=== PATIENT | female | born 1960 | race Caucasian/White ===

== ENCOUNTER → 2018-01-28 02:48 | Outpatient (CLI) | payer OTHER, SELFPAY ==
[2018-01-28 07:46] LABS: INR 3.3 (1.0-3.5); Prothrombin Time 31.3 sec (9.3-10.8)
== END ==
PROVIDERS: PCP Family Medicine; Visit Provider Internal Medicine Cardiovascular Disease
DX: I48.2 Chronic atrial fibrillation (principal); Z95.2 Presence of prosthetic heart valve; Z79.01 Long term (current) use of anticoagulants
CPT/HCPCS: 36415; 85610

== ENCOUNTER 2018-03-04 01:42 | Outpatient (CLI) | payer OTHER, SELFPAY ==
[2018-03-04 07:52] LABS: Prothrombin Time 47.2 sec (9.3-10.8)
[2018-03-04 08:44] LABS: INR 5.1 (1.0-3.5)
== END 2018-03-04 02:02 ==
PROVIDERS: PCP Family Medicine; Visit Provider Internal Medicine Cardiovascular Disease
DX: I48.2 Chronic atrial fibrillation (principal); Z95.2 Presence of prosthetic heart valve
CPT/HCPCS: 36415; 85610

== ENCOUNTER 2018-03-18 02:39 | Outpatient (CLI) | payer OTHER, SELFPAY ==
[2018-03-18 07:44] LABS: Prothrombin Time 24.1 sec (9.3-10.8)
[2018-03-18 07:53] LABS: INR 2.5 (1.0-3.5)
== END 2018-03-18 02:59 ==
PROVIDERS: PCP Family Medicine; Visit Provider Internal Medicine Cardiovascular Disease
DX: I48.2 Chronic atrial fibrillation (principal); Z79.01 Long term (current) use of anticoagulants; Z95.2 Presence of prosthetic heart valve
CPT/HCPCS: 36415; 85610

== ENCOUNTER 2018-04-01 01:16 | Outpatient (CLI) | payer OTHER, SELFPAY ==
[2018-04-01 07:50] LABS: INR 3.6 (1.0-3.5); Prothrombin Time 33.9 sec (9.3-10.8)
== END 2018-04-01 01:36 ==
PROVIDERS: PCP Family Medicine; Visit Provider Internal Medicine Cardiovascular Disease
DX: I48.2 Chronic atrial fibrillation (principal); Z95.2 Presence of prosthetic heart valve; Z79.01 Long term (current) use of anticoagulants
CPT/HCPCS: 36415; 85610

== ENCOUNTER 2018-04-22 01:48 | Outpatient (CLI) | payer OTHER, SELFPAY ==
[2018-04-22 08:15] LABS: INR 2.7 (1.0-3.5); Prothrombin Time 25.2 sec (9.3-10.8)
== END 2018-04-22 02:08 ==
PROVIDERS: PCP Family Medicine; Visit Provider Internal Medicine Cardiovascular Disease
DX: I48.2 Chronic atrial fibrillation (principal); Z79.01 Long term (current) use of anticoagulants
CPT/HCPCS: 36415; 85610

== ENCOUNTER 2018-05-21 02:21 | Outpatient (CLI) | payer OTHER, SELFPAY ==
[2018-05-21 08:10] LABS: Prothrombin Time 39.5 sec (9.3-10.8)
[2018-05-21 08:52] LABS: INR 4.3 (1.0-3.5)
== END 2018-05-21 02:41 ==
PROVIDERS: PCP Family Medicine; Visit Provider Internal Medicine Cardiovascular Disease
DX: I48.2 Chronic atrial fibrillation (principal)
CPT/HCPCS: 36415; 85610

== ENCOUNTER 2018-06-26 02:22 | Outpatient (CLI) | payer OTHER, SELFPAY ==
[2018-06-26 07:59] LABS: INR 2.7 (0.9-1.1); Prothrombin Time 26.9 sec (9.3-11.0)
== END 2018-06-26 02:42 ==
PROVIDERS: PCP Family Medicine; Visit Provider Internal Medicine Cardiovascular Disease
DX: I48.2 Chronic atrial fibrillation (principal)
CPT/HCPCS: 36415; 85610

== ENCOUNTER 2018-07-30 02:30 | Outpatient (CLI) | payer OTHER, SELFPAY ==
[2018-07-30 08:31] LABS: INR 2.3 (0.9-1.1); Prothrombin Time 23.5 sec (9.3-11.0)
== END 2018-07-30 02:50 ==
PROVIDERS: PCP Family Medicine; Visit Provider Internal Medicine Cardiovascular Disease
DX: I48.2 Chronic atrial fibrillation (principal); Z79.01 Long term (current) use of anticoagulants
CPT/HCPCS: 36415; 85610

== ENCOUNTER 2018-08-12 01:20 | Outpatient (CLI) | payer OTHER, SELFPAY ==
[2018-08-12 07:52] LABS: INR 2.4 (0.9-1.1)
== END 2018-08-12 01:40 ==
PROVIDERS: PCP Family Medicine; Visit Provider Internal Medicine Cardiovascular Disease
DX: I48.2 Chronic atrial fibrillation (principal)
CPT/HCPCS: 36415; 85610

== ENCOUNTER 2018-08-27 02:11 | Outpatient (CLI) | payer OTHER, SELFPAY ==
[2018-08-27 07:58] LABS: INR 3.6 (0.9-1.1); Prothrombin Time 36.9 sec (9.3-11.0)
== END 2018-08-27 02:31 ==
PROVIDERS: PCP Family Medicine; Visit Provider Internal Medicine Cardiovascular Disease
DX: I48.2 Chronic atrial fibrillation (principal); Z79.01 Long term (current) use of anticoagulants
CPT/HCPCS: 36415; 85610

== ENCOUNTER 2018-09-09 02:02 | Outpatient (CLI) | payer OTHER, SELFPAY ==
[2018-09-09 08:33] LABS: INR 3.3 (0.9-1.1); Prothrombin Time 33.3 sec (9.3-11.0)
== END 2018-09-09 02:22 ==
PROVIDERS: PCP Family Medicine; Visit Provider Internal Medicine Cardiovascular Disease
DX: I48.2 Chronic atrial fibrillation (principal); Z79.01 Long term (current) use of anticoagulants
CPT/HCPCS: 36415; 85610

== ENCOUNTER 2018-10-07 00:47 | Outpatient (CLI) | payer OTHER, SELFPAY ==
[2018-10-07 07:34] LABS: HCT 37.8 % (36.0-46.0); HGB 12.5 g/dL (12.0-15.5); Mean Corp. HGB Concentration 33.1 g/dL (32.0-36.0); Mean Corpuscular Hemoglobin 29.8 pg (27.0-33.0); Mean Platelet Volume 8.9 fL (8.0-11.0); Platelet Count 253 x1000/uL (130-400); RBC Distribution Width 13.2 % (11.7-14.6); White Blood Cell Count 5.88 k/cumm (4.4-10.8)
[2018-10-07 07:54] LABS: Prothrombin Time 51.3 sec (9.3-11.0)
[2018-10-07 09:23] LABS: ALT 28 U/L (12-78); AST 27 U/L (15-37); Albumin 3.6 g/dL (3.4-5.0); Alkaline Phosphatase 67 U/L (46-116); Anion Gap 7.6 mmol/L (3-11); BUN 13 mg/dL (7-18); Bilirubin, Total 0.6 mg/dL (0.2-1.0); CO2 26.4 mmol/L (21.0-32.0); CREATININE 0.98 mg/dL (0.55-1.02); Calcium 9.5 mg/dL (8.5-10.1); Chloride 104 mmol/L (98-107); Cholesterol 238 mg/dL (50-200); Estimated GFR 58.29 (mL/min/1.73m2); Glucose 104 mg/dL (70-100); HDL Cholesterol 81 mg/dL (40-60); LDL CHOLESTEROL 138 mg/dL (<100); Magnesium 1.9 mg/dL (1.8-2.4); Potassium 4.2 mmol/L (3.5-5.1); Sodium 138 mmol/L (136-145); TSH (W/Ref FT4) 5.73 uIU/mL (0.358-3.74); Triglyceride 63 mg/dL (30-150)
[2018-10-07 09:41] LABS: FREE T4 1.34 ng/dL (0.76-1.46)
== END 2018-10-07 01:07 ==
PROVIDERS: PCP Family Medicine; Visit Provider Internal Medicine Cardiovascular Disease
DX: Z00.00 Encounter for general adult medical examination without abnormal findings (principal); E03.9 Hypothyroidism, unspecified; I48.91 Unspecified atrial fibrillation
CPT/HCPCS: 36415; 80053; 80061; 83721; 85027; 83735; 84439; 84443; 85610

== ENCOUNTER 2018-10-13 02:33 | Outpatient (CLI) | payer OTHER, SELFPAY ==
[2018-10-13 08:06] LABS: INR 3.3 (0.9-1.1); Prothrombin Time 33.1 sec (9.3-11.0)
== END 2018-10-13 02:53 ==
PROVIDERS: PCP Family Medicine; Visit Provider Internal Medicine Cardiovascular Disease
DX: I48.2 Chronic atrial fibrillation (principal); Z79.01 Long term (current) use of anticoagulants
CPT/HCPCS: 36415; 85610

== ENCOUNTER 2018-11-04 01:52 | Outpatient (CLI) | payer OTHER, SELFPAY ==
[2018-11-04 08:00] LABS: Prothrombin Time 30.8 sec (9.3-11.0)
== END 2018-11-04 02:12 ==
PROVIDERS: PCP Family Medicine; Visit Provider Internal Medicine Cardiovascular Disease
DX: I48.2 Chronic atrial fibrillation (principal); Z79.01 Long term (current) use of anticoagulants
CPT/HCPCS: 36415; 85610

== ENCOUNTER 2018-12-02 07:19 | Outpatient (CLI) | payer OTHER, SELFPAY ==
[2018-12-02 07:58] LABS: INR 2.1 (0.9-1.1); Prothrombin Time 20.7 sec (9.3-11.0)
== END 2018-12-02 07:39 ==
PROVIDERS: PCP Family Medicine; Visit Provider Internal Medicine Cardiovascular Disease
DX: I48.2 Chronic atrial fibrillation (principal)
CPT/HCPCS: 36415; 85610

== ENCOUNTER 2018-12-16 01:17 | Outpatient (CLI) | payer OTHER, SELFPAY ==
[2018-12-16 07:50] LABS: INR 2.4 (0.9-1.1); Prothrombin Time 23.9 sec (9.3-11.0)
== END 2018-12-16 01:37 ==
PROVIDERS: PCP Family Medicine; Visit Provider Internal Medicine Cardiovascular Disease
DX: I48.2 Chronic atrial fibrillation (principal); Z79.01 Long term (current) use of anticoagulants
CPT/HCPCS: 36415; 85610

== ENCOUNTER 2018-12-30 01:46 | Outpatient (CLI) | payer OTHER, SELFPAY ==
[2018-12-30 07:47] LABS: INR 2.9 (0.9-1.1); Prothrombin Time 29.5 sec (9.3-11.0)
== END 2018-12-30 02:06 ==
PROVIDERS: PCP Family Medicine; Visit Provider Internal Medicine Cardiovascular Disease
DX: I48.2 Chronic atrial fibrillation (principal); Z79.01 Long term (current) use of anticoagulants
CPT/HCPCS: 36415; 85610

== ENCOUNTER 2019-02-25 03:29 | Outpatient (CLI) | payer OTHER, SELFPAY ==
[2019-02-25 08:01] LABS: Prothrombin Time 45.6 sec (9.3-11.0)
[2019-03-02 09:12] LABS: INR 4.5 (0.9-1.1)
== END 2019-02-25 03:49 ==
PROVIDERS: PCP Family Medicine; Visit Provider Internal Medicine Cardiovascular Disease
DX: I48.2 Chronic atrial fibrillation (principal)
CPT/HCPCS: 36415; 85610

== ENCOUNTER 2019-03-10 02:31 | Outpatient (CLI) | payer OTHER, SELFPAY ==
[2019-03-10 07:48] LABS: INR 3.5 (0.9-1.1); Prothrombin Time 35.7 sec (9.3-11.0)
== END 2019-03-10 02:51 ==
PROVIDERS: PCP Family Medicine; Visit Provider Internal Medicine Cardiovascular Disease
DX: I48.2 Chronic atrial fibrillation (principal)
CPT/HCPCS: 36415; 85610

== ENCOUNTER 2019-03-19 09:00 | Emergency (ER) | payer OTHER, SELFPAY ==
[2019-03-19] VITALS (86 sets, daily range): BP systolic 86–138; BP diastolic 54–80; PULSE 73–88; RESP 13–47; TEMP 36.8; O2SAT 94–99
[2019-03-19] MEDS: Normal Saline Flush 10 ML SYR IVP (08:55)
--- NOTE | 2019-03-19 09:11 | ED.GENADUL_ITS ---
Discharge Plan Disposition Patient Disposition: [facility] Condition: Stable Discharge Details Chief Complaint: GenMedical Clinical Impression: Defibrillator discharge Primary Care Provider: Cristal Armenta ED Provider: Amol Trivedi Home Meds and New Rx's Prescriptions: No Action Restasis MultiDose 0.05 % drops 1 drp OP Q12H RF: 0 cholecalciferol (vitamin D3) 2,000 unit capsule 2,000 unit PO DAILY RF: 0 EZ Tears Vitamin ophthalmic (eye) DAILY RF: 0 Qvar RediHaler 40 mcg/actuation HFA aerosol breath activated 2 puff IH BID Qty: 31.8 RF: 5 cetirizine [Zyrtec] 10 mg tablet 10 mg PO DAILY Qty: 90 RF: 4 flunisolide 25 mcg (0.025 %) spray,non-aerosol 2 spray NS DAILY Qty: 75 RF: 4 levothyroxine 137 mcg tablet 137 mcg PO DAILY Qty: 90 RF: 4 losartan 25 mg tablet 25 mg PO DAILY Qty: 90 RF: 4 potassium chloride 20 mEq tablet,ER particles/crystals 20 meq PO BID Qty: 270 RF: 4 magnesium chloride [Mag 64] 64 MG tablet,delayed release (DR/EC) 2 tab PO BID Qty: 180 RF: 4 diltiazem HCl 300 mg capsule,extended release 24hr 300 mg PO QAM Qty: 90 RF: 4 diltiazem HCl 120 mg capsule,extended release 24hr 120 mg PO pm Qty: 90 RF: 12 torsemide 20 mg tablet 20 mg PO DAILY Qty: 90 RF: 5 warfarin [Coumadin] 5 mg tablet 10 mg PO QHS Qty: 180 RF: 4 Calcium 600 + D(3) 1 EACH tablet 1 tab PO DAILY RF: 0 Medical Decision Making 58-year-old female presents from her work. During. Of high stress this morning she felt her pacemaker/defibrillator discharge 6 times. She states that this has occurred in the past with high levels of stress. She denies to me chest pain or palpitations, states she awoke feeling normal but has been suffering from stress at work. She arrives with a measurable pulse in A. fib in the 80s, blood pressure 138/80, normal respirations and oxygenation. Patient given a fluid bolus, placed in a threat monitoring analyst, referred for chest x-ray and laboratory testing. The [employer] device is interrogated. This reveals 8 shocks for VT/V. fib. Laboratories note a troponin of 0.3. Patient given ASA. She is chest pain free. Case discussed with on-call cardiology at [facility]. Patient accepted to the service of Dr. Brooks. ECG Data Attestation: I personally reviewed and interpreted this ECG (s) as follows: Interpretation: EKG reveals underlying A. fib with ventricular paced rhythm, the rate is 88, the QRS is wide. HPI General Mode of arrival: EMS . Date/Time Provider Initiated Documentation: 03/19/19 09:31 . Limitations to Documentation: no limitations . Information obtained by: family and EMS . History of Present Illness 58 year old F presents to the emergency department with the chief complaint of High stress level at work, felt defibrillator shock x6 this morning, described as moderate and similar to prior episodes, and is localized to the chest. Patient reports no radiation. Patient started experiencing this minute(s) and it has been intermittent and now resolved. No relieving factors improve symptom(s), No exacerbating factors reported . Patient notes denies chest pain, headaches, shortness of breath and syncope. Patient did receive the following treatments prior to arrival, none Related Data Home Medications Medication Instructions Recorded Confirmed magnesium chloride [Slow-Mag] 2 tab PO BID #180 tab-cap 11/07/12 03/19/19 calcium carbonate-vitamin D3 1 tab PO DAILY 05/31/13 03/19/19 [Calcium 600 + Vit D Tablet] EZ Tears Vitamin OPHTHALMIC (EYE) DAILY 09/22/18 09/22/18 beclomethasone dipropionate 40 2 puff IH BID #31.8 gm 09/22/18 03/19/19 mcg/actuation HFA breath activated aerosol cetirizine 10 mg tablet 10 mg PO DAILY #90 tab-cap 09/22/18 03/19/19 cholecalciferol (vitamin D3) 2,000 2,000 unit PO DAILY 09/22/18 03/19/19 unit capsule cyclosporine 0.05 % eye drops 1 drp OP Q12H 09/22/18 09/22/18 flunisolide 25 mcg (0.025 %) nasal 2 spray NS DAILY #75 ml 09/22/18 03/19/19 spray levothyroxine 137 mcg tablet 137 mcg PO DAILY #90 tab-cap 09/22/18 03/19/19 losartan 25 mg tablet 25 mg PO DAILY #90 tab 09/22/18 03/19/19 potassium chloride 20 mEq 20 meq PO BID #270 tab-cap 09/22/18 03/19/19 tablet,extended release(part/cryst) diltiazem HCl 120 mg 120 mg PO pm #90 tab-cap 02/09/19 03/19/19 capsule,extended release 24 hr diltiazem HCl 300 mg 300 mg PO QAM #90 cap 02/09/19 03/19/19 capsule,extended release 24 hr torsemide 20 mg tablet 20 mg PO DAILY #90 tab-cap 02/09/19 03/19/19 warfarin 5 mg tablet 10 mg PO QHS #180 tab 02/09/19 03/19/19 Previous Rx's Medication Instructions Recorded beclomethasone dipropionate 40 2 puff IH BID #31.8 gm 09/22/18 mcg/actuation HFA breath activated aerosol cetirizine 10 mg tablet 10 mg PO DAILY #90 tab-cap 09/22/18 flunisolide 25 mcg (0.025 %) nasal 2 spray NS DAILY #75 ml 09/22/18 spray levothyroxine 137 mcg tablet 137 mcg PO DAILY #90 tab-cap 09/22/18 losartan 25 mg tablet 25 mg PO DAILY #90 tab 09/22/18 potassium chloride 20 mEq 20 meq PO BID #270 tab-cap 09/22/18 tablet,extended release(part/cryst) diltiazem HCl 120 mg 120 mg PO pm #90 tab-cap 02/09/19 capsule,extended release 24 hr diltiazem HCl 300 mg 300 mg PO QAM #90 cap 02/09/19 capsule,extended release 24 hr torsemide 20 mg tablet 20 mg PO DAILY #90 tab-cap 02/09/19 warfarin 5 mg tablet 10 mg PO QHS #180 tab 02/09/19 Allergies Allergy/AdvReac Type Severity Reaction Status Date / Time amiodarone Allergy Unknown Unverified 03/19/19 11:23 Beta-Blockers AdvReac Severe SEVERE Unverified 03/19/19 11:23 (Beta-Adrenergic Bloc FATIGUE sertraline AdvReac Severe PALPITATION Unverified 03/19/19 11:23 S lansoprazole [From Prevacid] AdvReac Intermediate DIARRHEA Unverified 03/19/19 11:23 DOG DANDER Allergy Mild RHINITIS Uncoded 03/19/19 11:23 MOLDS AND SMUTS Allergy Mild RHINITIS Uncoded 03/19/19 11:23 General Stated Complaint: GenMedical BOOKER: 2 Review of Systems Review of Systems Narrative: States defibrillator has discharged in the past with high levels of stress. Denies to me chest pain, palpitations, shortness of breath. She has a history of hypertrophic cardia myopathy, followed by Dr. Marsh at [facility]. No change to medications. [facility] History CARDIAC 11/2002 CARDIAC ABLATION-[facility] [place] 12/2005 DEFIB IMPLANT-[facility] [place] 03/2006 CARDIAC ABLATION-[facility] [place] 10/2006 CARDIAC ABLATION- [facility] [place] 08/2009 DEFIB IMPLANT BATTERY REPLACEMENT-[facility] [place] Cholecystectomy 05/01; [facility] [place] HERNIATED DISC ;[facility] [place] Mitral valve replacement (03/26/16) [facility] [place] Family History Mother Hyperlipidemia Breast cancer Father , AGE 62 Alcohol abuse Heart disease Sister Heart disease Sister Allergy to soy Paternal Grandfather Heart disease Alcohol abuse Social History Smoking/Tobacco Use Status: Never Alcohol Intake: former Drug use: Never Caregiver/Support person: No Household members: spouse Housing: house Communication Needs: None Do you need help understanding health information?: Never Pets and animals: No Sexually active: Yes Do you think of yourself as: straight/heterosexual Current gender identity: female What is your relationship status?: How often do you talk on the phone with friends or family?: twice per week How often do you get together with friends or relatives?: twice per week How often do you attend christian or druze services?: decline to answer Do you belong to any clubs or organized social groups?: no Panel score (0-1 are the most socially isolated patients): 2 What type of physical activity do you participate in: walking Duration: < 15 minutes/day Frequency: 3-4 times per week Bianca/Adventist: No preference Special bianca needs: No Seatbelt use: always Helmet use: Yes Drive intox or ride w/intox armored car driver: No Do you feel safe at home: Yes Do you feel safe in your relationship?: Yes Exam Narrative Exam Narrative: GEN: awake, alert, oriented 3. Pleasant, well groomed, interactive. HEAD: Normocephalic, atraumatic ENT: Mucous membranes moist, oropharynx unremarkable, External ear exam unremarkable EYES: PERRL, EOMI NECK: Full ROM, no LIN, no menigismus CHEST/RESP: Nontender, clear to auscultation bilateral, no wheeze/rhonchi/rales CARDIOVASCULAR: Irregularly irregular, no rub or amy. 1+ Rad pulse bilateral ABDOMEN: Soft, nontender, no mass. +Bowel sounds EXT: Full ROM, no edema, no rash Neuro: Grossly normal neurologic exam, conversant, interactive. Psych: Speech fluent, thoughts congruent, affect normal Course Vital Signs Vital signs: Vital Signs Respiratory Rate 17 03/19/19 08:53 Pulse Oximetry 96 03/19/19 08:53 Temperature 36.8 C 03/19/19 08:59 Temperature Source Skin 03/19/19 08:59 Pulse 81 03/19/19 08:59 Pulse 82 03/19/19 08:53 Respiratory Rate 17 03/19/19 08:59 Blood Pressure 138/80 03/19/19 08:59 Blood Pressure Position Sitting 03/19/19 08:59 Pulse Oximetry 97 03/19/19 08:59 Oxygen Delivery Method Room Air 03/19/19 08:59 Oxygen Flow Rate 0 03/19/19 08:59 Pain Level 0 03/19/19 08:59
[2019-03-19] MEDS: Normal Saline 1,000 ML 1000 ML IV (09:15)
[2019-03-19 09:25] LABS: Abs Immature Grans 0.03 k/cumm (0.0-0.09); Absolute Basophil Count 0.03 k/cumm (0.0-0.2); Absolute Eosinophil Count 0.23 k/cumm (0.0-0.7); Absolute Lymphocyte Count 1.11 k/cumm (1.2-3.4); Absolute Monocyte Count 0.94 k/cumm (0.11-0.7); Absolute Neutrophil Count 5.27 k/cumm (1.2-6.7); Basophils % 0.4; Immature Grans % 0.4; Lymphocytes % 14.6; Mean Corp. HGB Concentration 34.2 g/dL (32.0-36.0); Mean Corpuscular Hemoglobin 30.7 pg (27.0-33.0); Mean Corpuscular Volume 89.8 fL (80-95); Mean Platelet Volume 9.7 fL (8.0-11.0); Monocytes % 12.4; Neutrophils % 69.2; Platelet Count 274 x1000/uL (130-400); RBC 4.23 m/cumm (4.00-5.20); RBC Distribution Width 13.2 % (11.7-14.6); White Blood Cell Count 7.61 k/cumm (4.4-10.8)
[2019-03-19 09:36] LABS: INR 3.7 (0.9-1.1); Prothrombin Time 36.1 sec (9.3-11.0)
[2019-03-19 09:40] LABS: ALT 46 U/L (14-59); AST 31 U/L (15-37); Albumin 3.7 g/dL (3.4-5.0); Alkaline Phosphatase 90 U/L (46-116); Anion Gap 11.6 mmol/L (3-11); BUN 12 mg/dL (7-18); Bilirubin, Total 0.5 mg/dL (0.2-1.0); CO2 21.4 mmol/L (21.0-32.0); CREATININE 1.06 mg/dL (0.55-1.02); Calcium 9.1 mg/dL (8.5-10.1); Chloride 104 mmol/L (98-107); Estimated GFR 53.24 (mL/min/1.73m2); Glucose 156 mg/dL (70-100); Magnesium 1.8 mg/dL (1.8-2.4); Potassium 3.9 mmol/L (3.5-5.1); Sodium 137 mmol/L (136-145); Total Protein 7.5 g/dL (6.4-8.2)
[2019-03-19 09:43] LABS: Troponin I 0.34 ng/mL (0.00-0.06)
--- NOTE | 2019-03-19 10:30 | DI.RAD_ITS ---
EXAM: XR CHEST 2V PA LATERAL INDICATION: defibrillator shock. COMPARISON: CHEST 2 VIEWS PA,LAT from 05/31/2013 TECHNIQUE: 2D digital imaging was performed. FINDINGS: There is a transvenous cardiac pacemaker in position. There is a mitral valve prosthesis. There is moderate cardiomegaly unchanged from examination of May 2013. Lungs are clear. No pleural effu naomi seen. IMPRESSION: Cardiomegaly with no evidence of acute process.
[2019-03-19] MEDS: Aspirin 81 MG CHEW 162 MG PO (12:07)
[2019-03-19] MEDS: Normal Saline 250 ML 500 ML IV (14:25)
--- NOTE | 2019-03-19 17:34 | NUR.NOTE ---
pt provided with meal tray Nursing Note:
== END 2019-03-19 17:50 | disposition short-term general hospital (02) ==
PROVIDERS: Emergency Provider Emergency Medicine; PCP Family Medicine
DX: I48.91 Unspecified atrial fibrillation (principal); Z95.810 Presence of automatic (implantable) cardiac defibrillator
CPT/HCPCS: 36415; 80053; 93005; 96360; 96361; 99285; 71046; 83735; 84484; 85025; 85610; 93010; 99284

== ENCOUNTER 2019-03-22 09:54 | Outpatient (CLI) | payer OTHER, SELFPAY ==
[2019-03-22 10:39] LABS: INR 3.4 (0.9-1.1); Prothrombin Time 33.1 sec (9.3-11.0)
== END 2019-03-22 10:14 ==
PROVIDERS: PCP Family Medicine; Visit Provider Internal Medicine Cardiovascular Disease
DX: I48.2 Chronic atrial fibrillation (principal); Z79.01 Long term (current) use of anticoagulants
CPT/HCPCS: 36415; 85610; 86765

== ENCOUNTER 2019-03-29 11:18 | Outpatient (CLI) | payer OTHER, SELFPAY ==
[2019-03-29 13:14] LABS: INR 5.1 (0.9-1.1)
== END 2019-03-29 11:38 ==
PROVIDERS: PCP Family Medicine; Visit Provider Internal Medicine Cardiovascular Disease
DX: I48.20 Chronic atrial fibrillation, unspecified (principal); Z79.01 Long term (current) use of anticoagulants
CPT/HCPCS: 36415; 85610

== ENCOUNTER 2019-04-02 02:38 | Outpatient (CLI) | payer OTHER, SELFPAY ==
[2019-04-02 07:57] LABS: INR 2.7 (0.9-1.1); Prothrombin Time 26.8 sec (9.3-11.0)
== END 2019-04-02 02:58 ==
PROVIDERS: PCP Family Medicine; Visit Provider Internal Medicine Cardiovascular Disease
DX: I48.20 Chronic atrial fibrillation, unspecified (principal); Z79.01 Long term (current) use of anticoagulants
CPT/HCPCS: 36415; 85610

== ENCOUNTER 2019-04-09 00:57 | Outpatient (CLI) | payer OTHER, SELFPAY ==
[2019-04-09 07:51] LABS: INR 2.6 (0.9-1.1); Prothrombin Time 25.9 sec (9.3-11.0)
== END 2019-04-09 01:17 ==
PROVIDERS: PCP Family Medicine; Visit Provider Internal Medicine Cardiovascular Disease
DX: I48.20 Chronic atrial fibrillation, unspecified (principal); Z79.01 Long term (current) use of anticoagulants
CPT/HCPCS: 36415; 85610

== ENCOUNTER 2019-05-12 01:30 | Outpatient (CLI) | payer OTHER, SELFPAY ==
[2019-05-12 07:49] LABS: INR 2.9 (0.9-1.1); Prothrombin Time 28.8 sec (9.3-11.0)
== END 2019-05-12 01:50 ==
PROVIDERS: Nurse Practitioner Adult Health; PCP Family Medicine; Visit Provider Internal Medicine Cardiovascular Disease
DX: I48.19 Other persistent atrial fibrillation (principal); Z79.01 Long term (current) use of anticoagulants
CPT/HCPCS: 36415; 85610

== ENCOUNTER 2019-06-09 01:17 | Outpatient (CLI) | payer OTHER, SELFPAY ==
[2019-06-09 10:58] LABS: INR 2.7 (0.9-1.1); Prothrombin Time 26.3 sec (9.3-11.0)
== END 2019-06-09 01:37 ==
PROVIDERS: PCP Family Medicine; Visit Provider Nurse Practitioner Adult Health
DX: I48.19 Other persistent atrial fibrillation (principal); Z79.01 Long term (current) use of anticoagulants
CPT/HCPCS: 36415; 85610

== ENCOUNTER 2019-07-07 00:52 | Outpatient (CLI) | payer OTHER, SELFPAY ==
[2019-07-07 08:34] LABS: INR 2.4 (0.9-1.1); Prothrombin Time 23.4 sec (9.3-11.0)
== END 2019-07-07 01:12 ==
PROVIDERS: Nurse Practitioner Adult Health; PCP Family Medicine; Visit Provider Internal Medicine Cardiovascular Disease
DX: I48.91 Unspecified atrial fibrillation (principal); Z79.01 Long term (current) use of anticoagulants
CPT/HCPCS: 36415; 85610

== ENCOUNTER 2019-07-16 00:12 | Outpatient (CLI) | payer OTHER, SELFPAY ==
[2019-07-16 09:49] LABS: INR 2.4 (0.9-1.1); Prothrombin Time 23.8 sec (9.3-11.0)
== END 2019-07-16 00:32 ==
PROVIDERS: PCP Family Medicine; Visit Provider Nurse Practitioner Adult Health
DX: I48.19 Other persistent atrial fibrillation (principal); Z79.01 Long term (current) use of anticoagulants
CPT/HCPCS: 36415; 85610

== ENCOUNTER 2019-07-28 02:37 | Outpatient (CLI) | payer OTHER, SELFPAY ==
[2019-07-28 12:04] LABS: INR 2.6 (0.9-1.1); Prothrombin Time 25.2 sec (9.3-11.0)
== END 2019-07-28 02:57 ==
PROVIDERS: PCP Family Medicine; Visit Provider Nurse Practitioner Adult Health
DX: I48.19 Other persistent atrial fibrillation (principal); Z79.01 Long term (current) use of anticoagulants
CPT/HCPCS: 36415; 85610

== ENCOUNTER 2019-08-25 02:34 | Outpatient (CLI) | payer OTHER, SELFPAY ==
[2019-08-25 11:22] LABS: Prothrombin Time 29.8 sec (9.3-11.0)
== END 2019-08-25 02:54 ==
PROVIDERS: Nurse Practitioner Adult Health; PCP Family Medicine; Visit Provider Physician Assistant
DX: I48.19 Other persistent atrial fibrillation (principal); Z79.01 Long term (current) use of anticoagulants
CPT/HCPCS: 36415; 85610

== ENCOUNTER 2019-10-15 12:22 | Outpatient (REF) | payer OTHER, SELFPAY ==
[2019-10-15 14:41] LABS: ALT 49 U/L (14-59); AST 38 U/L (15-37); Albumin 3.7 g/dL (3.4-5.0); Alkaline Phosphatase 96 U/L (46-116); Anion Gap 4.9 mmol/L (3-11); BUN 11 mg/dL (7-18); Bilirubin, Total 0.6 mg/dL (0.2-1.0); CO2 28.1 mmol/L (21.0-32.0); CREATININE 0.86 mg/dL (0.55-1.02); Calcium 9.1 mg/dL (8.5-10.1); Calculated LDL 124 mg/dL (<100); Chloride 106 mmol/L (98-107); Cholesterol 207 mg/dL (<200); Glucose 94 mg/dL (74-106); HDL Cholesterol 68 mg/dL (40-60); Potassium 4.4 mmol/L (3.5-5.1); Sodium 139 mmol/L (136-145); TSH (W/Ref FT4) 0.52 uIU/mL (0.36-3.74); Total Protein 6.8 g/dL (6.4-8.2); Triglyceride 79 mg/dL (<150)
[2019-10-15 14:44] LABS: INR 3.2 (0.9-1.1); Prothrombin Time 31.1 sec (9.3-11.0)
== END 2019-10-15 12:42 ==
LOC: LBN 12:22
PROVIDERS: PCP Family Medicine; Visit Provider Family Medicine
DX: E03.9 Hypothyroidism, unspecified (principal); I42.9 Cardiomyopathy, unspecified; I48.19 Other persistent atrial fibrillation; Z79.01 Long term (current) use of anticoagulants; Z82.49 Family history of ischemic heart disease and other diseases of the circulatory system
CPT/HCPCS: 80053; 80061; 84443; 85610

== ENCOUNTER 2019-11-12 03:59 | Outpatient (CLI) | payer OTHER, SELFPAY ==
[2019-11-12 11:59] LABS: INR 2.7 (0.9-1.1); Prothrombin Time 26.5 sec (9.3-11.0)
== END 2019-11-12 04:19 ==
PROVIDERS: PCP Family Medicine; Visit Provider Nurse Practitioner Adult Health
DX: I48.91 Unspecified atrial fibrillation (principal)
CPT/HCPCS: 36415; 85610

== ENCOUNTER 2019-12-10 03:59 | Outpatient (CLI) | payer OTHER, SELFPAY ==
[2019-12-10 12:19] LABS: INR 3.5 (0.9-1.1); Prothrombin Time 33.8 sec (9.3-11.0)
== END 2019-12-10 04:19 ==
PROVIDERS: PCP Family Medicine; Visit Provider Nurse Practitioner Adult Health
DX: I48.91 Unspecified atrial fibrillation (principal)
CPT/HCPCS: 36415; 85610

== ENCOUNTER 2020-01-07 03:04 | Outpatient (CLI) | payer OTHER, SELFPAY ==
[2020-01-07 12:10] LABS: Prothrombin Time 38.9 sec (9.3-11.0)
== END 2020-01-07 03:24 ==
PROVIDERS: PCP Family Medicine; Visit Provider Nurse Practitioner Adult Health
DX: I48.19 Other persistent atrial fibrillation (principal)
CPT/HCPCS: 36415; 85610

== ENCOUNTER 2020-01-18 02:07 | Outpatient (CLI) | payer OTHER, SELFPAY ==
[2020-01-18 11:50] LABS: Prothrombin Time 56.4 sec (9.3-11.0)
[2020-01-18 12:05] LABS: INR 5.9 (0.9-1.1)
== END 2020-01-18 02:27 ==
PROVIDERS: PCP Family Medicine; Visit Provider Nurse Practitioner Adult Health
DX: I48.19 Other persistent atrial fibrillation (principal)
CPT/HCPCS: 36415; 85610

== ENCOUNTER 2020-01-21 02:08 | Outpatient (CLI) | payer OTHER, SELFPAY ==
[2020-01-21 08:34] LABS: INR 1.4 (0.9-1.1); Prothrombin Time 13.7 sec (9.3-11.0)
== END 2020-01-21 02:28 ==
PROVIDERS: PCP Family Medicine; Visit Provider Nurse Practitioner Adult Health
DX: I48.91 Unspecified atrial fibrillation (principal)
CPT/HCPCS: 36415; 85610

== ENCOUNTER 2020-01-25 01:33 | Outpatient (CLI) | payer OTHER, SELFPAY ==
[2020-01-25 11:20] LABS: INR 2.9 (0.9-1.1); Prothrombin Time 28.3 sec (9.3-11.0)
== END 2020-01-25 01:53 ==
PROVIDERS: PCP Family Medicine; Visit Provider Nurse Practitioner Adult Health
DX: Z11.59 Encounter for screening for other viral diseases (principal)
CPT/HCPCS: 36415; 85610

== ENCOUNTER 2020-02-03 03:11 | Outpatient (CLI) | payer OTHER, SELFPAY ==
[2020-02-03 09:23] LABS: HCT 39.6 % (36.0-46.0); HGB 12.7 g/dL (11.2-15.7); MCH 29.8 pg (27.0-33.0); MCHC 32.1 % (32.0-36.0); Platelet Count 308 10^3/uL (130-400); RBC 4.26 10^6/uL (3.93-5.22); RDW 13.1 % (11.7-14.6); RDW-SD 44.8 fL
[2020-02-03 10:18] LABS: ALT 41 U/L (14-59); AST 30 U/L (15-37); Albumin 3.7 g/dL (3.4-5.0); Alkaline Phosphatase 94 U/L (46-116); Bilirubin, Direct 0.21 mg/dL (0.00-0.20); Bilirubin, Total 0.5 mg/dL (0.2-1.0); C-Reactive Protein 2.08 mg/dL (0.0-0.3); Calcium 9.5 mg/dL (8.5-10.1); TSH 4.62 uIU/mL (0.36-3.74); Total Protein 7.2 g/dL (6.4-8.2)
[2020-02-03 10:23] LABS: ESR 29 mm/hr (0-30)
[2020-02-03 10:34] LABS: Vitamin D 25 Total 71.2 ng/ml (30-100)
[2020-02-03 17:45] LABS: Rheumatoid Factor <8.6 IU/mL (<12.0)
[2020-02-04 10:38] LABS: Lyme Ab w Rflx to Lyme Confirm Negative (Negative)
[2020-02-07 15:16] LABS: ANA Interpretation Positive (Negative); ANA Titer Pattern 1:160 Homogeneous
== END 2020-02-03 03:31 ==
PROVIDERS: PCP Family Medicine; Visit Provider Nurse Practitioner
DX: M25.50 Pain in unspecified joint (principal); M79.10 Myalgia, unspecified site
CPT/HCPCS: 36415; 80076; 82306; 85027; 85652; 82310; 84443; 86038; 86140; 86431; 86618

== ENCOUNTER 2020-02-11 01:44 | Outpatient (CLI) | payer OTHER, SELFPAY ==
[2020-02-11 09:36] LABS: INR 2.2 (0.9-1.1); Prothrombin Time 21.4 sec (9.3-11.0)
== END 2020-02-11 02:04 ==
PROVIDERS: PCP Family Medicine; Visit Provider Nurse Practitioner Adult Health
DX: I48.19 Other persistent atrial fibrillation (principal)
CPT/HCPCS: 36415; 85610

== ENCOUNTER 2020-02-18 02:34 | Outpatient (CLI) | payer OTHER, SELFPAY ==
[2020-02-18 09:35] LABS: Prothrombin Time 27.9 sec (9.3-11.0)
[2020-02-18 09:39] LABS: INR 2.8 (0.9-1.1)
== END 2020-02-18 02:54 ==
PROVIDERS: PCP Family Medicine; Visit Provider Nurse Practitioner Adult Health
DX: I48.19 Other persistent atrial fibrillation (principal)
CPT/HCPCS: 36415; 85610

== ENCOUNTER 2020-02-25 02:09 | Outpatient (CLI) | payer OTHER, SELFPAY ==
[2020-02-25 09:49] LABS: INR 1.8 (0.9-1.1); Prothrombin Time 17.9 sec (9.3-11.0)
== END 2020-02-25 02:29 ==
PROVIDERS: PCP Family Medicine; Visit Provider Nurse Practitioner Adult Health
DX: I48.19 Other persistent atrial fibrillation (principal); Z79.01 Long term (current) use of anticoagulants
CPT/HCPCS: 36415; 84443; 85610

== ENCOUNTER 2020-03-03 03:51 | Outpatient (CLI) | payer OTHER, SELFPAY ==
[2020-03-03 10:21] LABS: Prothrombin Time 19.7 sec (9.3-11.0)
== END 2020-03-03 04:11 ==
PROVIDERS: PCP Family Medicine; Visit Provider Nurse Practitioner Adult Health
DX: I48.19 Other persistent atrial fibrillation (principal)
CPT/HCPCS: 36415; 85610

== ENCOUNTER 2020-03-10 01:55 | Outpatient (CLI) | payer OTHER, SELFPAY ==
[2020-03-10 09:07] LABS: INR 2.9 (0.9-1.1); Prothrombin Time 28.8 sec (9.3-11.0)
== END 2020-03-10 02:15 ==
PROVIDERS: Nurse Practitioner Adult Health; PCP Family Medicine; Visit Provider Family Medicine
DX: I48.19 Other persistent atrial fibrillation (principal); Z79.01 Long term (current) use of anticoagulants
CPT/HCPCS: 36415; 85610

== ENCOUNTER 2020-03-17 02:38 | Outpatient (CLI) | payer OTHER, SELFPAY ==
[2020-03-17 12:07] LABS: TSH (W/Ref FT4) 0.87 uIU/mL (0.36-3.74)
== END 2020-03-17 02:58 ==
PROVIDERS: PCP Family Medicine; Visit Provider Family Medicine
DX: I48.91 Unspecified atrial fibrillation (principal); E03.9 Hypothyroidism, unspecified
CPT/HCPCS: 36415; 84443; 85610

== ENCOUNTER 2020-03-24 04:21 | Outpatient (CLI) | payer OTHER, SELFPAY ==
[2020-03-24 10:23] LABS: INR 2.7 (0.9-1.1); Prothrombin Time 26.7 sec (9.3-11.0)
== END 2020-03-24 04:41 ==
PROVIDERS: Internal Medicine Cardiovascular Disease; PCP Family Medicine; Visit Provider Nurse Practitioner Adult Health
DX: I48.21 Permanent atrial fibrillation (principal)
CPT/HCPCS: 36415; 85610

== ENCOUNTER 2020-04-07 01:48 | Outpatient (CLI) | payer OTHER, SELFPAY ==
[2020-04-07 09:59] LABS: INR 2.9 (0.9-1.1)
== END 2020-04-07 02:08 ==
PROVIDERS: PCP Family Medicine; Visit Provider Internal Medicine Cardiovascular Disease
DX: I48.91 Unspecified atrial fibrillation (principal); Z79.01 Long term (current) use of anticoagulants
CPT/HCPCS: 36415; 85610

== ENCOUNTER 2020-05-05 00:45 | Outpatient (CLI) | payer OTHER, SELFPAY ==
[2020-05-05 11:27] LABS: INR 2.3 (0.9-1.1)
== END 2020-05-05 01:05 ==
PROVIDERS: PCP Family Medicine; Visit Provider Internal Medicine Cardiovascular Disease
DX: I48.91 Unspecified atrial fibrillation (principal); Z79.01 Long term (current) use of anticoagulants
CPT/HCPCS: 36415; 85610

== ENCOUNTER 2020-05-22 03:21 | Outpatient (CLI) | payer OTHER, SELFPAY ==
[2020-05-22 10:58] LABS: INR 3.4 (0.9-1.1); Prothrombin Time 32.7 sec (9.3-11.0)
[2020-05-22 11:27] LABS: Hemoglobin A1C 5.8 % (<5.7)
[2020-05-22 12:36] LABS: TSH (W/Ref FT4) 0.72 uIU/mL (0.36-3.74)
== END 2020-05-22 03:41 ==
PROVIDERS: Internal Medicine Cardiovascular Disease; PCP Family Medicine; Visit Provider Nurse Practitioner Adult Health
DX: E03.9 Hypothyroidism, unspecified (principal); E11.9 Type 2 diabetes mellitus without complications; I48.91 Unspecified atrial fibrillation; Z79.01 Long term (current) use of anticoagulants
CPT/HCPCS: 36415; 83036; 84443; 85610

== ENCOUNTER 2020-06-21 02:54 | Outpatient (CLI) | payer OTHER, SELFPAY ==
[2020-06-21 10:19] LABS: Prothrombin Time 19.5 sec (9.3-11.0)
== END 2020-06-21 03:14 ==
PROVIDERS: PCP Family Medicine; Visit Provider Nurse Practitioner Adult Health
DX: I48.21 Permanent atrial fibrillation (principal); Z79.01 Long term (current) use of anticoagulants
CPT/HCPCS: 36415; 85610

== ENCOUNTER 2020-07-06 03:12 | Outpatient (CLI) | payer OTHER, SELFPAY ==
[2020-07-06 11:49] LABS: INR 2.8 (0.9-1.1); Prothrombin Time 27.1 sec (9.3-11.0)
== END 2020-07-06 03:32 ==
PROVIDERS: PCP Family Medicine; Visit Provider Internal Medicine Cardiovascular Disease
DX: I48.21 Permanent atrial fibrillation (principal)
CPT/HCPCS: 36415; 85610

== ENCOUNTER 2020-07-20 03:08 | Outpatient (CLI) | payer OTHER, SELFPAY ==
[2020-07-20 11:25] LABS: INR 3.4 (0.9-1.1); Prothrombin Time 33.4 sec (9.3-11.0)
== END 2020-07-20 03:28 ==
PROVIDERS: PCP Family Medicine; Visit Provider Internal Medicine Cardiovascular Disease
DX: I48.21 Permanent atrial fibrillation (principal)
CPT/HCPCS: 36415; 85610

== ENCOUNTER 2020-08-10 02:53 | Outpatient (CLI) | payer OTHER, SELFPAY ==
[2020-08-10 11:23] LABS: INR 3.9 (0.9-1.1); Prothrombin Time 37.5 sec (9.3-11.0)
== END 2020-08-10 02:54 | disposition home or self-care (01) ==
PROVIDERS: PCP Family Medicine; Visit Provider Internal Medicine Cardiovascular Disease
DX: I48.21 Permanent atrial fibrillation (principal); Z79.01 Long term (current) use of anticoagulants
CPT/HCPCS: 36415; 85610

== ENCOUNTER 2020-08-24 03:59 | Outpatient (CLI) | payer OTHER, SELFPAY ==
[2020-08-24 11:38] LABS: INR 3.1 (0.9-1.1); Prothrombin Time 30.3 sec (9.3-11.0)
== END 2020-08-24 04:00 | disposition home or self-care (01) ==
PROVIDERS: PCP Family Medicine; Visit Provider Internal Medicine Cardiovascular Disease
DX: I48.21 Permanent atrial fibrillation (principal); Z79.01 Long term (current) use of anticoagulants
CPT/HCPCS: 36415; 85610

== ENCOUNTER 2020-08-25 13:24 | Outpatient (REF) | payer OTHER, SELFPAY ==
[2020-08-25 20:18] LABS: Bacteria Negative HPF (Negative); C & S Indicated? Yes; Casts Negative LPF (Negative); Crystals Negative HPF (Negative); Epithelial Cells Few HPF (Negative); Mucus Moderate (Negative); WBC 20-50 HPF (0-5)
== END 2020-08-25 13:25 | disposition home or self-care (01) ==
LOC: LBN 13:24
PROVIDERS: PCP Family Medicine; Visit Provider Family Medicine
DX: N39.0 Urinary tract infection, site not specified (principal)
CPT/HCPCS: 87077; 81015; 87086; 87186

== ENCOUNTER 2020-09-07 02:48 | Outpatient (CLI) | payer OTHER, SELFPAY ==
[2020-09-07 11:31] LABS: INR 3.5 (0.9-1.1); Prothrombin Time 34.2 sec (9.3-11.0)
== END 2020-09-07 02:49 | disposition home or self-care (01) ==
PROVIDERS: PCP Family Medicine; Visit Provider Nurse Practitioner Adult Health
DX: I48.21 Permanent atrial fibrillation (principal); Z79.01 Long term (current) use of anticoagulants
CPT/HCPCS: 36415; 85610

== ENCOUNTER 2020-09-28 14:56 | Outpatient (REF) | payer OTHER, SELFPAY ==
--- NOTE | 2020-09-28 14:00 | PAPFT_PTH ---
PATIENT: Mariela Rosenthal LOC: [facility] U#:[id number] AGE/SX: 60/F ROOM: RE09/28/[address]: Cristal Armenta MD, DC : 1960 BED: DIS: 09/28/2020 SPEC #: [id number] RECD: 09/29/20 12:54 STATUS: FRANKEI REQ #: [id number] KALEN: 09/28/20 14:[address]: Cristal Armenta DEPT: [facility] Cytology RECD BY: Shonda Clark Tissues: 1 - CX/ENDOCX FOR PAP SMEARS Procedures: PAP THIN PREP/[facility] Screening HPV DNA PROBE Comments: [id number]
== END 2020-09-28 14:57 | disposition home or self-care (01) ==
LOC: LBN 14:56
PROVIDERS: PCP Family Medicine; Visit Provider Family Medicine
DX: Z12.4 Encounter for screening for malignant neoplasm of cervix (principal); Z11.51 Encounter for screening for human papillomavirus (HPV)
CPT/HCPCS: 88142; 87624

== ENCOUNTER 2020-09-29 02:49 | Outpatient (CLI) | payer OTHER, SELFPAY ==
[2020-09-29 11:19] LABS: HCT 39.4 % (36.0-46.0); HGB 12.7 g/dL (11.2-15.7); MCH 29.7 pg (27.0-33.0); MCHC 32.2 % (32.0-36.0); MCV 92.1 fL (80-95); Platelet Count 259 10^3/uL (130-400); RBC 4.28 10^6/uL (3.93-5.22); RDW 12.7 % (11.7-14.6); WBC 6.78 10^3/uL (4.4-10.8)
[2020-09-29 11:26] LABS: INR 3.1 (0.9-1.1); Prothrombin Time 30.7 sec (9.3-11.0)
[2020-09-29 11:50] LABS: Hemoglobin A1C 5.8 % (<5.7)
[2020-09-29 13:13] LABS: ALT 27 U/L (14-59); AST 28 U/L (15-37); Albumin 4.2 g/dL (3.4-5.0); Alkaline Phosphatase 95 U/L (46-116); Anion Gap 9.2 mmol/L (3-11); BUN 15 mg/dL (7-18); Bilirubin, Total 0.6 mg/dL (0.2-1.0); CO2 23.8 mmol/L (21.0-32.0); Calcium 9.7 mg/dL (8.5-10.1); Chloride 104 mmol/L (98-107); Estimated GFR 56.56 (mL/min/1.73m2); Glucose 91 mg/dL (74-106); Potassium 4.1 mmol/L (3.5-5.1); Sodium 137 mmol/L (136-145); TSH (W/Ref FT4) 0.26 uIU/mL (0.36-3.74); Total Protein 7.6 g/dL (6.4-8.2)
[2020-09-29 13:32] LABS: FREE T4 1.74 ng/dL (0.76-1.46)
[2020-10-02 08:54] LABS: Vitamin D 25 Total 65.2 ng/mL (30-100)
== END 2020-09-29 02:50 | disposition home or self-care (01) ==
LOC: LBO 02:49
PROVIDERS: Internal Medicine Cardiovascular Disease; PCP Family Medicine; Visit Provider Family Medicine
DX: Z00.00 Encounter for general adult medical examination without abnormal findings (principal); E11.9 Type 2 diabetes mellitus without complications; E55.9 Vitamin D deficiency, unspecified; I48.91 Unspecified atrial fibrillation; Z79.01 Long term (current) use of anticoagulants
CPT/HCPCS: 36415; 80053; 82306; 85027; 83036; 84439; 84443; 85610

== ENCOUNTER 2020-10-31 03:36 | Outpatient (CLI) | payer OTHER, SELFPAY ==
[2020-10-31 11:46] LABS: Prothrombin Time 38.9 sec (9.3-11.0)
== END 2020-10-31 03:37 | disposition home or self-care (01) ==
LOC: LBO 03:36
PROVIDERS: PCP Family Medicine; Visit Provider Internal Medicine Cardiovascular Disease
DX: I48.21 Permanent atrial fibrillation (principal); Z79.01 Long term (current) use of anticoagulants
CPT/HCPCS: 36415; 85610

== ENCOUNTER 2020-11-07 03:22 | Outpatient (CLI) | payer OTHER, SELFPAY ==
[2020-11-07 11:24] LABS: Prothrombin Time 38.4 sec (9.3-11.0)
[2020-11-07 12:30] LABS: TSH (W/Ref FT4) 0.32 uIU/mL (0.36-3.74)
[2020-11-07 12:58] LABS: FREE T4 1.59 ng/dL (0.76-1.46)
== END 2020-11-07 03:23 | disposition home or self-care (01) ==
PROVIDERS: PCP Family Medicine; Visit Provider Internal Medicine Cardiovascular Disease
DX: I48.21 Permanent atrial fibrillation (principal); E03.9 Hypothyroidism, unspecified
CPT/HCPCS: 36415; 84439; 84443; 85610

== ENCOUNTER 2020-11-17 01:51 | Outpatient (CLI) | payer OTHER, SELFPAY ==
[2020-11-17 11:41] LABS: INR 3.3 (0.9-1.1)
== END 2020-11-17 01:52 | disposition home or self-care (01) ==
LOC: LBO 01:52
PROVIDERS: PCP Family Medicine; Visit Provider Internal Medicine Cardiovascular Disease
DX: I48.21 Permanent atrial fibrillation (principal)
CPT/HCPCS: 36415; 84443; 85610

== ENCOUNTER 2020-12-27 02:32 | Outpatient (CLI) | payer OTHER, SELFPAY ==
[2020-12-27 11:03] LABS: INR 1.9 (0.9-1.1); Prothrombin Time 18.6 sec (9.3-11.0)
[2020-12-27 11:45] LABS: TSH (W/Ref FT4) 2.77 uIU/mL (0.36-3.74)
== END 2020-12-27 02:33 | disposition home or self-care (01) ==
LOC: LBO 02:32
PROVIDERS: Internal Medicine Cardiovascular Disease; PCP Family Medicine; Visit Provider Family Medicine
DX: I48.21 Permanent atrial fibrillation (principal); Z79.01 Long term (current) use of anticoagulants; E03.9 Hypothyroidism, unspecified
CPT/HCPCS: 36415; 84443; 85610

== ENCOUNTER 2021-01-03 03:47 | Outpatient (CLI) | payer OTHER, SELFPAY ==
[2021-01-03 11:33] LABS: INR 2.4 (0.9-1.1); Prothrombin Time 23.2 sec (9.3-11.0)
== END 2021-01-03 03:48 | disposition home or self-care (01) ==
LOC: LBO 03:47
PROVIDERS: PCP Family Medicine; Visit Provider Internal Medicine Cardiovascular Disease
DX: I48.21 Permanent atrial fibrillation (principal)
CPT/HCPCS: 36415; 85610

== ENCOUNTER 2021-01-16 03:40 | Outpatient (CLI) | payer OTHER, SELFPAY ==
[2021-01-16 11:16] LABS: Prothrombin Time 33.6 sec (9.3-11.0)
[2021-01-16 11:17] LABS: INR 3.4 (0.9-1.1)
== END 2021-01-16 03:41 | disposition home or self-care (01) ==
LOC: LBO 03:40
PROVIDERS: PCP Family Medicine; Visit Provider Internal Medicine Cardiovascular Disease
DX: I48.20 Chronic atrial fibrillation, unspecified (principal); Z79.01 Long term (current) use of anticoagulants
CPT/HCPCS: 36415; 85610

== ENCOUNTER 2021-02-14 02:57 | Outpatient (CLI) | payer OTHER, SELFPAY ==
[2021-02-14 11:27] LABS: INR 3.2 (0.9-1.1); Prothrombin Time 31.3 sec (9.3-11.0)
== END 2021-02-14 02:58 | disposition home or self-care (01) ==
LOC: LBO 02:58
PROVIDERS: PCP Family Medicine; Visit Provider Internal Medicine Cardiovascular Disease
DX: I48.21 Permanent atrial fibrillation (principal); Z79.01 Long term (current) use of anticoagulants
CPT/HCPCS: 36415; 85610

== ENCOUNTER 2021-02-28 04:13 | Outpatient (CLI) | payer OTHER, SELFPAY ==
[2021-02-28 08:46] LABS: Prothrombin Time 38.6 sec (9.3-11.0)
== END 2021-02-28 04:14 | disposition home or self-care (01) ==
LOC: LBO 04:13
PROVIDERS: PCP Family Medicine; Visit Provider Internal Medicine Cardiovascular Disease
DX: I48.21 Permanent atrial fibrillation (principal); Z95.2 Presence of prosthetic heart valve
CPT/HCPCS: 36415; 85610

== ENCOUNTER 2021-03-14 00:47 | Outpatient (CLI) | payer OTHER, SELFPAY ==
[2021-03-14 11:39] LABS: INR 3.3 (0.9-1.1); Prothrombin Time 32.5 sec (9.3-11.0)
== END 2021-03-14 00:48 | disposition home or self-care (01) ==
PROVIDERS: Nurse Practitioner Adult Health; PCP Family Medicine; Visit Provider Internal Medicine Cardiovascular Disease
DX: I48.21 Permanent atrial fibrillation (principal); Z95.2 Presence of prosthetic heart valve; Z79.01 Long term (current) use of anticoagulants
CPT/HCPCS: 36415; 85610

== ENCOUNTER 2021-03-28 02:50 | Outpatient (CLI) | payer OTHER, SELFPAY ==
[2021-03-28 11:22] LABS: Prothrombin Time 29.7 sec (9.3-11.0)
== END 2021-03-28 02:51 | disposition home or self-care (01) ==
LOC: LBO 02:50
PROVIDERS: Nurse Practitioner Adult Health; PCP Family Medicine; Visit Provider Internal Medicine Cardiovascular Disease
DX: I48.21 Permanent atrial fibrillation (principal); Z95.2 Presence of prosthetic heart valve
CPT/HCPCS: 36415; 85610

== ENCOUNTER 2021-04-03 03:34 | Outpatient (CLI) | payer OTHER, SELFPAY ==
[2021-04-03 11:36] LABS: INR 3.4 (0.9-1.1); Prothrombin Time 33.4 sec (9.3-11.0)
== END 2021-04-03 03:35 | disposition home or self-care (01) ==
PROVIDERS: PCP Family Medicine; Visit Provider Nurse Practitioner Adult Health
DX: I48.21 Permanent atrial fibrillation (principal); Z95.2 Presence of prosthetic heart valve
CPT/HCPCS: 36415; 85610

== ENCOUNTER 2021-04-12 02:44 | Outpatient (CLI) | payer OTHER, SELFPAY ==
[2021-04-12 11:42] LABS: INR 2.1 (0.9-1.1); Prothrombin Time 20.8 sec (9.3-11.0)
== END 2021-04-12 02:45 | disposition home or self-care (01) ==
LOC: LBO 02:44
PROVIDERS: PCP Family Medicine; Visit Provider Internal Medicine Cardiovascular Disease
DX: I48.21 Permanent atrial fibrillation (principal); Z95.2 Presence of prosthetic heart valve; Z79.01 Long term (current) use of anticoagulants
CPT/HCPCS: 36415; 85610

== ENCOUNTER 2021-04-26 02:55 | Outpatient (CLI) | payer OTHER, SELFPAY ==
[2021-04-26 11:21] LABS: INR 2.5 (0.9-1.1); Prothrombin Time 24.8 sec (9.3-11.0)
== END 2021-04-26 02:56 | disposition home or self-care (01) ==
LOC: LBO 02:55
PROVIDERS: Nurse Practitioner Adult Health; PCP Family Medicine; Visit Provider Internal Medicine Cardiovascular Disease
DX: I48.21 Permanent atrial fibrillation (principal); Z95.2 Presence of prosthetic heart valve; Z79.01 Long term (current) use of anticoagulants
CPT/HCPCS: 36415; 85610

== ENCOUNTER 2021-05-10 02:15 | Outpatient (CLI) | payer OTHER, SELFPAY ==
[2021-05-10 12:32] LABS: INR 2.5 (0.9-1.1); Prothrombin Time 24.6 sec (9.3-11.0)
== END 2021-05-10 02:16 | disposition home or self-care (01) ==
LOC: LBO 02:15
PROVIDERS: PCP Family Medicine; Visit Provider Internal Medicine Cardiovascular Disease
DX: I48.21 Permanent atrial fibrillation (principal); Z95.2 Presence of prosthetic heart valve; Z79.01 Long term (current) use of anticoagulants
CPT/HCPCS: 36415; 85610

== ENCOUNTER 2021-05-31 02:43 | Outpatient (CLI) | payer OTHER, SELFPAY ==
[2021-05-31 12:07] LABS: INR 2.2 (0.9-1.1); Prothrombin Time 21.4 sec (9.3-11.0)
== END 2021-05-31 02:44 | disposition home or self-care (01) ==
LOC: LBO 02:43
PROVIDERS: Nurse Practitioner Adult Health; PCP Family Medicine; Visit Provider Internal Medicine Cardiovascular Disease
DX: I48.21 Permanent atrial fibrillation (principal); Z95.2 Presence of prosthetic heart valve
CPT/HCPCS: 36415; 85610

== ENCOUNTER 2021-06-14 03:32 | Outpatient (CLI) | payer OTHER, SELFPAY ==
[2021-06-14 11:22] LABS: INR 2.4 (0.9-1.1); Prothrombin Time 23.6 sec (9.3-11.0)
== END 2021-06-14 03:33 | disposition home or self-care (01) ==
PROVIDERS: PCP Family Medicine; Visit Provider Nurse Practitioner Adult Health
DX: I48.21 Permanent atrial fibrillation (principal); Z95.2 Presence of prosthetic heart valve
CPT/HCPCS: 36415; 85610

== ENCOUNTER 2021-06-28 04:17 | Outpatient (CLI) | payer OTHER, SELFPAY ==
[2021-06-28 11:24] LABS: INR 2.7 (0.9-1.1); Prothrombin Time 26.8 sec (9.3-11.0)
== END 2021-06-28 04:18 | disposition home or self-care (01) ==
PROVIDERS: PCP Family Medicine; Visit Provider Nurse Practitioner Adult Health
DX: I48.21 Permanent atrial fibrillation (principal); Z95.2 Presence of prosthetic heart valve
CPT/HCPCS: 36415; 85610

== ENCOUNTER 2021-07-19 03:37 | Outpatient (CLI) | payer OTHER, SELFPAY ==
[2021-07-19 11:34] LABS: Prothrombin Time 29.1 sec (9.3-11.0)
== END 2021-07-19 03:38 | disposition home or self-care (01) ==
PROVIDERS: PCP Family Medicine; Visit Provider Nurse Practitioner Adult Health
DX: I48.21 Permanent atrial fibrillation (principal); Z95.2 Presence of prosthetic heart valve
CPT/HCPCS: 36415; 85610

== ENCOUNTER 2021-08-09 02:48 | Outpatient (CLI) | payer OTHER, SELFPAY ==
[2021-08-09 11:20] LABS: INR 2.9 (0.9-1.1); Prothrombin Time 28.8 sec (9.3-11.0)
== END 2021-08-09 02:49 | disposition home or self-care (01) ==
PROVIDERS: PCP Family Medicine; Visit Provider Nurse Practitioner Adult Health
DX: I48.21 Permanent atrial fibrillation (principal); Z95.2 Presence of prosthetic heart valve
CPT/HCPCS: 36415; 85610

== ENCOUNTER 2021-09-05 02:32 | Outpatient (CLI) | payer OTHER, SELFPAY ==
[2021-09-05 12:08] LABS: INR 2.9 (0.9-1.1); Prothrombin Time 28.7 sec (9.3-11.0)
== END 2021-09-05 02:33 | disposition home or self-care (01) ==
LOC: LBO 02:32
PROVIDERS: Nurse Practitioner Adult Health; PCP Family Medicine; Visit Provider Internal Medicine Cardiovascular Disease
DX: I48.21 Permanent atrial fibrillation (principal); Z95.2 Presence of prosthetic heart valve
CPT/HCPCS: 36415; 85610

== ENCOUNTER 2021-10-04 02:23 | Outpatient (CLI) | payer OTHER, SELFPAY ==
[2021-10-04 11:21] LABS: Abs Immature Grans 0.02 10^3/uL (0.0-0.06); Absolute Basophil Count 0.05 10^3/uL (0.0-0.2); Absolute Eosinophil Count 0.34 10^3/uL (0.0-0.7); Absolute Lymphocyte Count 1.68 10^3/uL (1.2-3.4); Absolute Monocyte Count 0.98 10^3/uL (0.1-0.8); Absolute Neutrophil Count 3.92 10^3/uL (1.2-6.7); Basophils % 0.7; Eosinophils % 4.9; HCT 41.5 % (36.0-46.0); HGB 13.1 g/dL (11.2-15.7); Immature Grans % 0.3; MCH 29.1 pg (27.0-33.0); MCHC 31.6 % (32.0-36.0); MCV 92.2 fL (80-95); MPV 9.5 fL (8.0-11.0); Neutrophils % 56.1; Nucleated RBC 0 %; Platelet Count 261 10^3/uL (130-400); RDW 12.8 % (11.7-14.6); RDW-SD 43.8 fL; WBC 6.99 10^3/uL (4.4-10.8)
[2021-10-04 11:32] LABS: INR 3.1 (0.9-1.1); Prothrombin Time 30.3 sec (9.3-11.0)
[2021-10-04 12:22] LABS: ALT 24 U/L (14-59); AST 26 U/L (15-37); Albumin 3.8 g/dL (3.4-5.0); Alkaline Phosphatase 96 U/L (46-116); Anion Gap 7.1 mmol/L (3-11); BUN 14 mg/dL (7-18); Bilirubin, Total 0.5 mg/dL (0.2-1.0); CO2 27.9 mmol/L (21.0-32.0); CREATININE 0.9 mg/dL (0.55-1.02); Calcium 9.2 mg/dL (8.5-10.1); Calculated LDL 147 mg/dL (<100); Chloride 106 mmol/L (98-107); Cholesterol 253 mg/dL (<200); Glucose 89 mg/dL (74-106); HDL Cholesterol 87 mg/dL (40-60); Potassium 4.5 mmol/L (3.5-5.1); Sodium 141 mmol/L (136-145); TSH (W/Ref FT4) 2.57 uIU/mL (0.36-3.74); Total Protein 7.2 g/dL (6.4-8.2); Triglyceride 96 mg/dL (<150)
[2021-10-04 12:41] LABS: Hemoglobin A1C 5.9 % (<5.7)
== END 2021-10-04 02:24 | disposition home or self-care (01) ==
PROVIDERS: PCP Family Medicine; Visit Provider Nurse Practitioner Adult Health
DX: R73.03 Prediabetes (principal); I10 Essential (primary) hypertension; E03.9 Hypothyroidism, unspecified
CPT/HCPCS: 36415; 80053; 80061; 83036; 84443; 85025; 85610

== ENCOUNTER 2021-11-01 02:21 | Outpatient (CLI) | payer OTHER, SELFPAY ==
[2021-11-01 11:16] LABS: INR 3.8 (0.9-1.1); Prothrombin Time 37.1 sec (9.3-11.0)
== END 2021-11-01 02:22 | disposition home or self-care (01) ==
LOC: LBO 02:22
PROVIDERS: PCP Family Medicine; Visit Provider Internal Medicine Cardiovascular Disease
DX: I48.21 Permanent atrial fibrillation (principal); Z95.2 Presence of prosthetic heart valve; Z79.01 Long term (current) use of anticoagulants
CPT/HCPCS: 36415; 85610

== ENCOUNTER 2021-11-15 03:17 | Outpatient (CLI) | payer OTHER, SELFPAY ==
[2021-11-15 09:43] LABS: INR 3.9 (0.9-1.1); Prothrombin Time 37.4 sec (9.3-11.0)
== END 2021-11-15 03:18 | disposition home or self-care (01) ==
PROVIDERS: Internal Medicine Cardiovascular Disease; PCP Family Medicine; Visit Provider Nurse Practitioner Adult Health
DX: I48.21 Permanent atrial fibrillation (principal); Z95.2 Presence of prosthetic heart valve; Z79.01 Long term (current) use of anticoagulants
CPT/HCPCS: 36415; 85610

== ENCOUNTER 2021-12-27 03:58 | Outpatient (CLI) | payer OTHER, SELFPAY ==
[2021-12-27 11:07] LABS: INR 3.2 (0.9-1.1); Prothrombin Time 30.2 sec (9.3-11.0)
== END 2021-12-27 03:59 | disposition home or self-care (01) ==
PROVIDERS: PCP Family Medicine; Visit Provider Nurse Practitioner Adult Health
DX: I48.21 Permanent atrial fibrillation (principal); Z95.2 Presence of prosthetic heart valve; Z79.01 Long term (current) use of anticoagulants
CPT/HCPCS: 36415; 85610

== ENCOUNTER 2022-01-17 03:11 | Outpatient (CLI) | payer OTHER, SELFPAY ==
[2022-01-17 11:03] LABS: INR 2.1 (0.9-1.1); Prothrombin Time 20.4 sec (9.3-11.0)
== END 2022-01-17 03:12 | disposition home or self-care (01) ==
LOC: LBO 03:11
PROVIDERS: PCP Family Medicine; Visit Provider Nurse Practitioner Adult Health
DX: I48.21 Permanent atrial fibrillation (principal); Z95.2 Presence of prosthetic heart valve; Z79.01 Long term (current) use of anticoagulants
CPT/HCPCS: 36415; 85610

== ENCOUNTER 2022-01-31 01:30 | Outpatient (CLI) | payer OTHER, SELFPAY ==
[2022-01-31 11:19] LABS: INR 3.2 (0.9-1.1); Prothrombin Time 29.7 sec (9.3-11.0)
== END 2022-01-31 01:31 | disposition home or self-care (01) ==
LOC: LBO 01:30
PROVIDERS: PCP Family Medicine; Visit Provider Nurse Practitioner Adult Health
DX: I48.21 Permanent atrial fibrillation (principal); Z95.2 Presence of prosthetic heart valve; Z79.01 Long term (current) use of anticoagulants
CPT/HCPCS: 36415; 85610

== ENCOUNTER 2022-03-13 03:31 | Outpatient (CLI) | payer OTHER, SELFPAY ==
[2022-03-13 14:07] LABS: INR 3.2 (0.9-1.1); Prothrombin Time 29.9 sec (9.3-11.0)
== END 2022-03-13 03:32 | disposition home or self-care (01) ==
PROVIDERS: PCP Family Medicine; Visit Provider Nurse Practitioner Adult Health
DX: I48.21 Permanent atrial fibrillation (principal); Z95.2 Presence of prosthetic heart valve; Z79.01 Long term (current) use of anticoagulants
CPT/HCPCS: 36415; 85610

== ENCOUNTER 2022-04-10 02:17 | Outpatient (CLI) | payer OTHER, SELFPAY ==
[2022-04-10 11:02] LABS: HCT 41.3 % (36.0-46.0); HGB 13.5 g/dL (11.2-15.7); MCH 30.5 pg (27.0-33.0); MCHC 32.7 % (32.0-36.0); MCV 93 fL (80-95); MPV 9.4 fL (8.0-11.0); Platelet Count 261 10^3/uL (130-400); RBC 4.43 10^6/uL (3.93-5.22); RDW 12.6 % (11.7-14.6); RDW-SD 43.3 fL; WBC 6.56 10^3/uL (4.4-10.8)
[2022-04-10 11:15] LABS: INR 2.6 (0.9-1.1); Prothrombin Time 24.8 sec (9.3-11.0)
[2022-04-10 11:18] LABS: Hemoglobin A1C 5.7 % (<5.7)
[2022-04-10 11:46] LABS: ALT 26 U/L (14-59); AST 23 U/L (15-37); Albumin 3.9 g/dL (3.4-5.0); Alkaline Phosphatase 128 U/L (46-116); Anion Gap 5.7 mmol/L (3-11); BUN 14 mg/dL (7-18); Bilirubin, Total 0.5 mg/dL (0.2-1.0); CO2 27.3 mmol/L (21.0-32.0); CREATININE 1.1 mg/dL (0.55-1.02); Calcium 9.6 mg/dL (8.5-10.1); Calculated LDL 64 mg/dL (<100); Chloride 105 mmol/L (98-107); Cholesterol 145 mg/dL (<200); Estimated GFR 56.81 (mL/min/1.73m2); Glucose 93 mg/dL (74-106); HDL Cholesterol 65 mg/dL (40-60); Potassium 4.5 mmol/L (3.5-5.1); Sodium 138 mmol/L (136-145); TSH (W/Ref FT4) 0.69 uIU/mL (0.36-3.74); Total Protein 7.8 g/dL (6.4-8.2); Triglyceride 81 mg/dL (<150)
== END 2022-04-10 02:18 | disposition home or self-care (01) ==
LOC: LBO 02:17
PROVIDERS: PCP Family Medicine; Visit Provider Nurse Practitioner Adult Health
DX: E03.9 Hypothyroidism, unspecified (principal); E11.9 Type 2 diabetes mellitus without complications; I48.91 Unspecified atrial fibrillation; Z00.00 Encounter for general adult medical examination without abnormal findings
CPT/HCPCS: 36415; 80053; 80061; 85027; 83036; 84443; 85610

== ENCOUNTER 2022-05-09 03:20 | Outpatient (CLI) | payer OTHER, SELFPAY ==
[2022-05-09 10:30] LABS: INR 2.6 (0.9-1.1)
[2022-05-09 10:41] LABS: ALT 21 U/L (14-59); AST 25 U/L (15-37); Albumin 3.9 g/dL (3.4-5.0); Alkaline Phosphatase 132 U/L (46-116); Anion Gap 4.1 mmol/L (3-11); BUN 11 mg/dL (7-18); Bilirubin, Total 0.6 mg/dL (0.2-1.0); CO2 28.9 mmol/L (21.0-32.0); Calcium 9.5 mg/dL (8.5-10.1); Chloride 103 mmol/L (98-107); Glucose 104 mg/dL (74-106); Potassium 4.4 mmol/L (3.5-5.1); Sodium 136 mmol/L (136-145); Total Protein 7.6 g/dL (6.4-8.2)
== END 2022-05-09 03:21 | disposition home or self-care (01) ==
LOC: LBO 03:20
PROVIDERS: PCP Family Medicine; Visit Provider Nurse Practitioner Adult Health
DX: R79.89 Other specified abnormal findings of blood chemistry (principal); I48.21 Permanent atrial fibrillation; Z95.2 Presence of prosthetic heart valve
CPT/HCPCS: 36415; 80053; 85610

== ENCOUNTER 2022-06-06 02:49 | Outpatient (CLI) | payer OTHER, SELFPAY ==
[2022-06-06 11:31] LABS: INR 2.2 (0.9-1.1); Prothrombin Time 20.8 sec (9.3-11.0)
[2022-06-06 12:04] LABS: ALT 28 U/L (14-59); AST 31 U/L (15-37); Albumin 3.6 g/dL (3.4-5.0); Alkaline Phosphatase 128 U/L (46-116); Anion Gap 5.9 mmol/L (3-11); BUN 18 mg/dL (7-18); Bilirubin, Total 0.4 mg/dL (0.2-1.0); CO2 28.1 mmol/L (21.0-32.0); Chloride 101 mmol/L (98-107); Glucose 98 mg/dL (74-106); Potassium 4.3 mmol/L (3.5-5.1); Sodium 135 mmol/L (136-145); Total Protein 7.4 g/dL (6.4-8.2)
[2022-06-06 12:09] LABS: Calcium 9.2 mg/dL (8.5-10.1)
== END 2022-06-06 02:50 | disposition home or self-care (01) ==
PROVIDERS: PCP Family Medicine; Visit Provider Nurse Practitioner Adult Health
DX: R79.89 Other specified abnormal findings of blood chemistry (principal); I48.21 Permanent atrial fibrillation; Z95.2 Presence of prosthetic heart valve
CPT/HCPCS: 36415; 80053; 85610

== ENCOUNTER 2022-06-20 02:09 | Outpatient (CLI) | payer OTHER, SELFPAY ==
[2022-06-20 11:21] LABS: INR 2.3 (0.9-1.1); Prothrombin Time 22.1 sec (9.3-11.0)
== END 2022-06-20 02:10 | disposition home or self-care (01) ==
PROVIDERS: PCP Family Medicine; Visit Provider Nurse Practitioner Adult Health
DX: I48.21 Permanent atrial fibrillation (principal); Z95.2 Presence of prosthetic heart valve
CPT/HCPCS: 36415; 85610

== ENCOUNTER 2022-07-04 04:08 | Outpatient (CLI) | payer OTHER, SELFPAY ==
[2022-07-04 11:12] LABS: INR 2.4 (0.9-1.1); Prothrombin Time 22.8 sec (9.3-11.0)
== END 2022-07-04 04:09 | disposition home or self-care (01) ==
PROVIDERS: PCP Family Medicine; Visit Provider Nurse Practitioner Adult Health
DX: I48.21 Permanent atrial fibrillation (principal); Z95.2 Presence of prosthetic heart valve; Z79.01 Long term (current) use of anticoagulants
CPT/HCPCS: 36415; 85610

== ENCOUNTER 2022-07-19 01:34 | Outpatient (CLI) | payer OTHER, SELFPAY ==
[2022-07-19 12:34] LABS: INR 2.1 (0.9-1.1); Prothrombin Time 20.6 sec (9.3-11.0)
== END 2022-07-19 01:35 | disposition home or self-care (01) ==
LOC: LBO 01:35
PROVIDERS: Nurse Practitioner Adult Health; PCP Family Medicine; Visit Provider Family Medicine
DX: I48.21 Permanent atrial fibrillation (principal); Z95.2 Presence of prosthetic heart valve
CPT/HCPCS: 36415; 85610

== ENCOUNTER 2022-07-26 00:12 | Outpatient (CLI) | payer OTHER, SELFPAY ==
--- NOTE | 2022-07-26 10:22 | DI.DEXA_ITS ---
Exam(s) XR DEXA BONE DENSITY W/WO LUIS FERNANDO EXAM: XR DEXA BONE DENSITY W/WO LUIS FERNANDO CLINICAL HISTORY: SCREENING FOR OSTEOPOROSIS,Z13.820,VIT D DEFICIENCY,E55.9 TECHNIQUE: Routine DEXA evaluation of the lumbar spine, hip, or forearm. COMPARISON: No exams were available for comparison FINDINGS: Performed on a Hologic unit. Lateral image: No compression fracture evident. Lumbar Spine total T-score: -1.6 Hip total T-score:-2.4 Independent reading at the level of the femoral neck yields T-score of -2.3 Forearm total T-score: -5.9 IMPRESSION: Bone mineral density measures in the osteopenia-osteoporosis range. Fracture risk is moderate-high. Note: Any spine fracture indicates 5x risk for subsequent spine fracture and 2x risk for subsequent h ip fracture. World Health Organization criteria for BMD interpretation classify patients: Normal...... T- Score at or above -1.0 Osteopenic... T- Score between -1.0 and -2.5 Osteoporosis... T-Score at or below -2.5
== END 2022-07-26 00:32 ==
LOC: DI 00:12
PROVIDERS: PCP Family Medicine; Visit Provider Family Medicine
DX: Z13.820 Encounter for screening for osteoporosis; M85.89 Other specified disorders of bone density and structure, multiple sites; M81.0 Age-related osteoporosis without current pathological fracture
CPT/HCPCS: 77080

== ENCOUNTER 2022-07-26 01:38 | Outpatient (CLI) | payer OTHER, SELFPAY ==
[2022-07-26 10:45] LABS: INR 3.3 (0.9-1.1); Prothrombin Time 31.1 sec (9.3-11.0)
== END 2022-07-26 01:39 | disposition home or self-care (01) ==
PROVIDERS: PCP Family Medicine; Visit Provider Nurse Practitioner Adult Health
DX: I48.21 Permanent atrial fibrillation (principal); Z95.2 Presence of prosthetic heart valve; Z79.01 Long term (current) use of anticoagulants
CPT/HCPCS: 36415; 85610

== ENCOUNTER 2022-08-02 02:09 | Outpatient (CLI) | payer OTHER, SELFPAY ==
[2022-08-02 11:20] LABS: INR 3.3 (0.9-1.1); Prothrombin Time 33.7 sec (9.3-11.0)
== END 2022-08-02 02:10 | disposition home or self-care (01) ==
PROVIDERS: PCP Family Medicine; Visit Provider Nurse Practitioner Adult Health
DX: I48.21 Permanent atrial fibrillation (principal); Z95.2 Presence of prosthetic heart valve
CPT/HCPCS: 36415; 85610

== ENCOUNTER 2022-08-16 02:23 | Outpatient (CLI) | payer OTHER, SELFPAY ==
[2022-08-16 11:27] LABS: INR 2.8 (0.9-1.1); Prothrombin Time 28.4 sec (9.3-11.0)
== END 2022-08-16 02:24 | disposition home or self-care (01) ==
PROVIDERS: PCP Family Medicine; Visit Provider Nurse Practitioner Adult Health
DX: I48.21 Permanent atrial fibrillation (principal); Z95.2 Presence of prosthetic heart valve
CPT/HCPCS: 36415; 85610

== ENCOUNTER 2022-09-24 03:09 | Outpatient (CLI) | payer OTHER, SELFPAY ==
[2022-09-24 11:25] LABS: INR 3.6 (0.9-1.1); Prothrombin Time 36.3 sec (9.3-11.0)
== END 2022-09-24 03:10 | disposition home or self-care (01) ==
PROVIDERS: PCP Family Medicine; Visit Provider Nurse Practitioner Adult Health
DX: I48.21 Permanent atrial fibrillation (principal); Z95.2 Presence of prosthetic heart valve; Z79.01 Long term (current) use of anticoagulants
CPT/HCPCS: 36415; 85610

== ENCOUNTER 2022-10-01 02:06 | Outpatient (CLI) | payer OTHER, SELFPAY ==
[2022-10-01 10:32] LABS: Prothrombin Time 32.7 sec (9.3-11.0)
[2022-10-01 10:35] LABS: INR 3.2 (0.9-1.1)
== END 2022-10-01 02:07 | disposition home or self-care (01) ==
PROVIDERS: PCP Family Medicine; Visit Provider Nurse Practitioner Adult Health
DX: I48.21 Permanent atrial fibrillation (principal); Z95.2 Presence of prosthetic heart valve; Z79.01 Long term (current) use of anticoagulants
CPT/HCPCS: 36415; 85610

== ENCOUNTER 2022-10-15 03:04 | Outpatient (CLI) | payer OTHER, SELFPAY ==
[2022-10-15 11:11] LABS: INR 3.7 (0.9-1.1); Prothrombin Time 37.1 sec (9.3-11.0)
== END 2022-10-15 03:05 | disposition home or self-care (01) ==
PROVIDERS: PCP Family Medicine; Visit Provider Nurse Practitioner Adult Health
DX: I48.21 Permanent atrial fibrillation (principal); Z95.2 Presence of prosthetic heart valve; Z79.01 Long term (current) use of anticoagulants
CPT/HCPCS: 36415; 85610

== ENCOUNTER 2022-10-29 02:17 | Outpatient (CLI) | payer OTHER, SELFPAY ==
[2022-10-29 11:21] LABS: INR 3.1 (0.9-1.1); Prothrombin Time 31.3 sec (9.3-11.0)
[2022-10-29 11:48] LABS: Hemoglobin A1C 5.9 % (<5.7)
[2022-10-29 11:59] LABS: ALT 43 U/L (14-59); AST 37 U/L (15-37); Albumin 4.1 g/dL (3.4-5.0); Alkaline Phosphatase 190 U/L (46-116); Anion Gap 9.3 mmol/L (3-11); BUN 15 mg/dL (7-18); Bilirubin, Total 0.6 mg/dL (0.2-1.0); CO2 24.7 mmol/L (21.0-32.0); Calcium 10.1 mg/dL (8.5-10.1); Chloride 103 mmol/L (98-107); Glucose 98 mg/dL (74-106); Potassium 4.1 mmol/L (3.5-5.1); Sodium 137 mmol/L (136-145); TSH (W/Ref FT4) 1.48 uIU/mL (0.36-3.74); Total Protein 8.3 g/dL (6.4-8.2)
[2022-10-30 10:11] LABS: HIV-1/2 Ag & Ab Screen Negative (Negative)
[2022-10-30 10:27] LABS: Hepatitis C Ab w Rflx HCV PCR Negative (Negative)
== END 2022-10-29 02:18 | disposition home or self-care (01) ==
PROVIDERS: Nurse Practitioner Adult Health; PCP Family Medicine; Visit Provider Family Medicine
DX: E11.9 Type 2 diabetes mellitus without complications (principal); E03.9 Hypothyroidism, unspecified; R79.89 Other specified abnormal findings of blood chemistry; I42.9 Cardiomyopathy, unspecified; Z11.4 Encounter for screening for human immunodeficiency virus [HIV]; Z11.59 Encounter for screening for other viral diseases
CPT/HCPCS: 36415; 80053; 86803; 87389; 83036; 84443; 85610

== ENCOUNTER 2022-11-13 05:39 | Outpatient (CLI) | payer OTHER, SELFPAY ==
[2022-11-13 11:04] LABS: INR 3.3 (0.9-1.1)
== END 2022-11-13 05:40 | disposition home or self-care (01) ==
PROVIDERS: PCP Family Medicine; Visit Provider Nurse Practitioner Adult Health
DX: I48.21 Permanent atrial fibrillation (principal); Z95.2 Presence of prosthetic heart valve; Z79.01 Long term (current) use of anticoagulants
CPT/HCPCS: 36415; 85610

== ENCOUNTER 2022-12-03 02:07 | Outpatient (CLI) | payer OTHER, SELFPAY ==
[2022-12-03 11:18] LABS: Prothrombin Time 29.8 sec (9.3-11.0)
== END 2022-12-03 02:08 | disposition home or self-care (01) ==
PROVIDERS: PCP Family Medicine; Visit Provider Nurse Practitioner Adult Health
DX: I48.21 Permanent atrial fibrillation (principal); Z95.2 Presence of prosthetic heart valve; Z79.01 Long term (current) use of anticoagulants
CPT/HCPCS: 36415; 85610

== ENCOUNTER 2023-01-01 02:44 | Outpatient (CLI) | payer OTHER, SELFPAY ==
[2023-01-01 11:59] LABS: Prothrombin Time 30.4 sec (9.3-11.0)
== END 2023-01-01 02:45 | disposition home or self-care (01) ==
PROVIDERS: PCP Family Medicine; Visit Provider Nurse Practitioner Adult Health
DX: I48.21 Permanent atrial fibrillation (principal); Z95.2 Presence of prosthetic heart valve; Z79.01 Long term (current) use of anticoagulants
CPT/HCPCS: 36415; 85610

== ENCOUNTER 2023-02-11 04:28 | Outpatient (CLI) | payer OTHER, SELFPAY ==
[2023-02-11 12:02] LABS: INR 2.4 (0.9-1.1); Prothrombin Time 24.2 sec (9.3-11.0)
== END 2023-02-11 04:29 | disposition home or self-care (01) ==
PROVIDERS: PCP Family Medicine; Visit Provider Nurse Practitioner Adult Health
DX: I48.21 Permanent atrial fibrillation (principal); Z95.2 Presence of prosthetic heart valve; Z79.01 Long term (current) use of anticoagulants
CPT/HCPCS: 36415; 80053; 84075; 84080; 85610

== ENCOUNTER 2023-03-11 03:31 | Outpatient (CLI) | payer OTHER, SELFPAY ==
[2023-03-11 10:48] LABS: INR 2.1 (0.9-1.1); Prothrombin Time 21.4 sec (9.3-11.0)
[2023-03-11 10:52] LABS: ALT 25 U/L (14-59); AST 24 U/L (15-37); Alkaline Phosphatase 81 U/L (46-116); Anion Gap 6.4 mmol/L (3-11); BUN 19 mg/dL (7-18); Bilirubin, Total 0.5 mg/dL (0.2-1.0); CO2 26.6 mmol/L (21.0-32.0); CREATININE 0.8 mg/dL (0.55-1.02); Chloride 102 mmol/L (98-107); Estimated GFR 83.26 (mL/min/1.73m2); Glucose 93 mg/dL (74-106); Potassium 4.2 mmol/L (3.5-5.1); Sodium 135 mmol/L (136-145); Total Protein 8.1 g/dL (6.4-8.2)
[2023-03-13 16:57] LABS: Alkaline Phosphatase 76 U/L (35 - 104); Bone % 21.2 % (19.1-67.7); Liver % 67.1 % (27.8-76.3); Liver 2% 11.7 % (0.0-8.0)
== END 2023-03-11 03:32 | disposition home or self-care (01) ==
PROVIDERS: PCP Family Medicine; Visit Provider Nurse Practitioner Adult Health
DX: Z95.2 Presence of prosthetic heart valve (principal); I48.21 Permanent atrial fibrillation; R74.8 Abnormal levels of other serum enzymes
CPT/HCPCS: 36415; 80053; 84075; 84080; 85610

== ENCOUNTER 2023-03-24 04:22 | Outpatient (CLI) | payer OTHER, SELFPAY ==
[2023-03-24 11:26] LABS: Prothrombin Time 20.1 sec (9.3-11.0)
== END 2023-03-24 04:23 | disposition home or self-care (01) ==
PROVIDERS: PCP Family Medicine; Visit Provider Nurse Practitioner Adult Health
DX: I48.21 Permanent atrial fibrillation (principal); Z95.2 Presence of prosthetic heart valve
CPT/HCPCS: 36415; 85610

== ENCOUNTER 2023-04-01 03:14 | Outpatient (CLI) | payer OTHER, SELFPAY ==
[2023-04-01 10:16] LABS: Prothrombin Time 32.5 sec (9.3-11.0)
[2023-04-01 10:23] LABS: INR 3.2 (0.9-1.1)
== END 2023-04-01 03:15 | disposition home or self-care (01) ==
PROVIDERS: PCP Family Medicine; Visit Provider Nurse Practitioner Adult Health
DX: I48.21 Permanent atrial fibrillation (principal); Z95.2 Presence of prosthetic heart valve
CPT/HCPCS: 36415; 85610

== ENCOUNTER 2023-04-08 02:39 | Outpatient (CLI) | payer OTHER, SELFPAY ==
[2023-04-08 10:35] LABS: INR 3.1 (0.9-1.1); Prothrombin Time 28.6 sec (9.1-11.1)
== END 2023-04-08 02:40 | disposition home or self-care (01) ==
PROVIDERS: PCP Family Medicine; Visit Provider Nurse Practitioner Adult Health
DX: I48.21 Permanent atrial fibrillation (principal); Z95.2 Presence of prosthetic heart valve; Z79.01 Long term (current) use of anticoagulants
CPT/HCPCS: 36415; 85610

== ENCOUNTER 2023-04-29 01:01 | Outpatient (CLI) | payer OTHER, SELFPAY ==
[2023-04-29 11:27] LABS: INR 3.2 (0.9-1.1); Prothrombin Time 29.1 sec (9.1-11.1)
== END 2023-04-29 01:02 | disposition home or self-care (01) ==
PROVIDERS: PCP Family Medicine; Visit Provider Nurse Practitioner Adult Health
DX: Z95.2 Presence of prosthetic heart valve (principal); I48.21 Permanent atrial fibrillation
CPT/HCPCS: 36415; 85610

== ENCOUNTER 2023-05-27 02:24 | Outpatient (CLI) | payer OTHER, SELFPAY ==
[2023-05-27 10:46] LABS: Hemoglobin A1C 5.7 % (<5.7)
[2023-05-27 10:53] LABS: INR 3.1 (0.9-1.1); Prothrombin Time 28.3 sec (9.1-11.1)
== END 2023-05-27 02:25 | disposition home or self-care (01) ==
LOC: LBO 02:24
PROVIDERS: Nurse Practitioner Adult Health; PCP Family Medicine; Visit Provider Family Medicine
DX: E11.9 Type 2 diabetes mellitus without complications (principal)
CPT/HCPCS: 36415; 83036; 85610

== ENCOUNTER 2023-06-24 03:16 | Outpatient (CLI) | payer OTHER, SELFPAY ==
[2023-06-24 12:17] LABS: INR 2.6 (0.9-1.1)
== END 2023-06-24 03:17 | disposition home or self-care (01) ==
PROVIDERS: PCP Family Medicine; Visit Provider Nurse Practitioner Adult Health
DX: I48.21 Permanent atrial fibrillation (principal); Z95.2 Presence of prosthetic heart valve; Z79.01 Long term (current) use of anticoagulants
CPT/HCPCS: 36415; 85610

== ENCOUNTER 2023-08-05 03:27 | Outpatient (CLI) | payer OTHER, SELFPAY ==
[2023-08-05 11:18] LABS: INR 2.6 (0.9-1.1)
== END 2023-08-05 03:28 | disposition home or self-care (01) ==
PROVIDERS: PCP Family Medicine; Visit Provider Nurse Practitioner Adult Health
DX: I48.21 Permanent atrial fibrillation (principal); Z95.2 Presence of prosthetic heart valve; Z79.01 Long term (current) use of anticoagulants
CPT/HCPCS: 36415; 85610

== ENCOUNTER 2023-09-16 05:18 | Outpatient (CLI) | payer OTHER, SELFPAY ==
[2023-09-16 11:14] LABS: INR 2.7 (0.9-1.1); Prothrombin Time 24.5 sec (9.1-11.1)
== END 2023-09-16 05:19 | disposition home or self-care (01) ==
PROVIDERS: PCP Family Medicine; Visit Provider Nurse Practitioner Adult Health
DX: I48.21 Permanent atrial fibrillation (principal); Z95.2 Presence of prosthetic heart valve; Z79.01 Long term (current) use of anticoagulants
CPT/HCPCS: 36415; 85610

== ENCOUNTER 2023-10-28 05:45 | Outpatient (CLI) | payer OTHER, SELFPAY ==
[2023-10-28 11:10] LABS: HCT 46.7 % (36.0-46.0); HGB 14.7 g/dL (11.2-15.7); MCH 29.1 pg (27.0-33.0); MCHC 31.5 % (32.0-36.0); MCV 93 fL (80-95); MPV 9.1 fL (8.0-11.0); Platelet Count 265 10^3/uL (130-400); RBC 5.05 10^6/uL (3.93-5.22); RDW 13.2 % (11.7-14.6); RDW-SD 45.1 fL; WBC 7.46 10^3/uL (4.4-10.8)
[2023-10-28 11:19] LABS: Prothrombin Time 27.8 sec (9.1-11.1)
[2023-10-28 11:32] LABS: Hemoglobin A1C 5.9 % (<5.7)
[2023-10-28 12:01] LABS: ALT 29 U/L (14-59); AST 29 U/L (15-37); Albumin 4.3 g/dL (3.4-5.0); Alkaline Phosphatase 92 U/L (46-116); Anion Gap 9.4 mmol/L (3-11); BUN 13 mg/dL (7-18); Bilirubin, Total 0.7 mg/dL (0.2-1.0); CO2 27.6 mmol/L (21.0-32.0); CREATININE 1.2 mg/dL (0.55-1.02); Calcium 9.7 mg/dL (8.5-10.1); Calculated LDL 74 mg/dL (<100); Chloride 101 mmol/L (98-107); Cholesterol 180 mg/dL (<200); Estimated GFR 50.86 (mL/min/1.73m2); Glucose 99 mg/dL (74-106); HDL Cholesterol 93 mg/dL (40-60); Potassium 4.2 mmol/L (3.5-5.1); Sodium 138 mmol/L (136-145); TSH (W/Ref FT4) 3.26 uIU/mL (0.36-3.74); Total Protein 8.2 g/dL (6.4-8.2); Triglyceride 69 mg/dL (<150)
== END 2023-10-28 05:46 | disposition home or self-care (01) ==
PROVIDERS: PCP Family Medicine; Visit Provider Nurse Practitioner Adult Health
DX: Z79.01 Long term (current) use of anticoagulants (principal); E11.9 Type 2 diabetes mellitus without complications; E03.9 Hypothyroidism, unspecified; I10 Essential (primary) hypertension; Z95.4 Presence of other heart-valve replacement; I48.21 Permanent atrial fibrillation
CPT/HCPCS: 36415; 80053; 80061; 85027; 83036; 84443; 85610

== ENCOUNTER 2023-10-29 12:10 | Outpatient (REF) | payer OTHER, SELFPAY ==
[2023-10-29 13:34] LABS: Bilirubin Negative (Negative); Blood Trace-intact (Negative); Clarity Clear (Clear); Glucose >=1000 mg/dL (Negative); Ketones Negative (Negative); Leukocyte Esterase Negative (Negative); Nitrite Negative (Negative); Specific Gravity 1.015 (1.005-1.025); Urobilinogen 0.2 mg/dL (Up to 0.2); pH 5.5 (5-8)
[2023-10-29 13:42] LABS: Bacteria Rare HPF (Negative); C & S Indicated? No; Casts Negative LPF (Negative); Crystals Negative HPF (Negative); Epithelial Cells Rare HPF (Negative); Mucus Negative (Negative); RBC 0-2 HPF (0-2)
== END 2023-10-29 12:11 | disposition home or self-care (01) ==
LOC: LBN 12:10
PROVIDERS: PCP Family Medicine; Visit Provider Nurse Practitioner Family
DX: R53.83 Other fatigue (principal)
CPT/HCPCS: 81003; 81015

== ENCOUNTER 2023-11-21 07:50 | Outpatient (CLI) | payer OTHER, SELFPAY ==
[2023-11-24 11:22] LABS: Lyme Ab w Rflx to Lyme Confirm Negative (Negative)
[2023-11-24 16:03] LABS: Anaplasma phagocytophilum Negative (Negative); B. miyamotoi PCR Negative (Negative); Babesia divergens/MO-1 Negative (Negative); Babesia duncani Negative (Negative); Babesia microti Negative (Negative); Ehrlichia chaffeensis Negative (Negative); Ehrlichia ewingii/canis Negative (Negative); Ehrlichia muris eauclairensis Negative (Negative)
== END 2023-11-21 07:51 | disposition home or self-care (01) ==
LOC: LBO 07:51
PROVIDERS: PCP Family Medicine; Visit Provider Family Medicine
DX: R53.83 Other fatigue (principal)
CPT/HCPCS: 36415; 80400; 82533; 87798; 86618

== ENCOUNTER 2023-12-09 04:56 | Outpatient (CLI) | payer OTHER, SELFPAY ==
[2023-12-09 10:49] LABS: INR 2.6 (0.9-1.1); Prothrombin Time 24.2 sec (9.1-11.1)
== END 2023-12-09 04:57 | disposition home or self-care (01) ==
PROVIDERS: PCP Family Medicine; Visit Provider Nurse Practitioner Adult Health
DX: Z95.2 Presence of prosthetic heart valve (principal); I48.21 Permanent atrial fibrillation
CPT/HCPCS: 36415; 85610

== ENCOUNTER 2024-01-13 01:35 | Outpatient (CLI) | payer OTHER, SELFPAY ==
[2024-01-13 08:57] LABS: HCT 45.6 % (36.0-46.0); HGB 14.8 g/dL (11.2-15.7); MCH 29.7 pg (27.0-33.0); MCHC 32.5 % (32.0-36.0); MCV 91 fL (80-95); MPV 9.3 fL (8.0-11.0); Platelet Count 291 10^3/uL (130-400); RBC 4.99 10^6/uL (3.93-5.22); RDW 13.3 % (11.7-14.6); RDW-SD 44.6 fL; WBC 7.32 10^3/uL (4.4-10.8)
[2024-01-13 09:07] LABS: ESR 21 mm/hr (0-30)
[2024-01-13 09:31] LABS: Iron 75 ug/dL (50-170)
[2024-01-13 09:50] LABS: ALT 29 U/L (14-59); AST 30 U/L (15-37); Albumin 4.3 g/dL (3.4-5.0); Alkaline Phosphatase 69 U/L (46-116); Anion Gap 10.6 mmol/L (3-11); BUN 13 mg/dL (7-18); Bilirubin, Total 0.84 mg/dL (0.2-1.0); CO2 24.4 mmol/L (21.0-32.0); CREATININE 1.1 mg/dL (0.55-1.02); Calcium 9.8 mg/dL (8.5-10.1); Chloride 104 mmol/L (98-107); Estimated GFR 56.46 (mL/min/1.73m2); Ferritin 73 ng/mL (8-252); Glucose 113 mg/dL (74-106); Potassium 4.1 mmol/L (3.5-5.1); Sodium 139 mmol/L (136-145); TSH (W/Ref FT4) 4.48 uIU/mL (0.36-3.74); Total Protein 8.2 g/dL (6.4-8.2); Vitamin D 25 Total 68.5 ng/mL (30-100)
[2024-01-13 10:09] LABS: FREE T4 1.61 ng/dL (0.76-1.46)
[2024-01-13 10:10] LABS: C-Reactive Protein < 0.50 mg/dL (<or=0.5)
[2024-01-15 14:25] LABS: Anaplasma phagocytophilum Negative (Negative); B. miyamotoi PCR Negative (Negative); Babesia divergens/MO-1 Negative (Negative); Babesia duncani Negative (Negative); Babesia microti Negative (Negative); Ehrlichia chaffeensis Negative (Negative); Ehrlichia ewingii/canis Negative (Negative); Ehrlichia muris eauclairensis Negative (Negative)
== END 2024-01-13 01:36 | disposition home or self-care (01) ==
PROVIDERS: PCP Family Medicine; Visit Provider Family Medicine
DX: I42.9 Cardiomyopathy, unspecified (principal); I48.91 Unspecified atrial fibrillation; E03.9 Hypothyroidism, unspecified; R79.89 Other specified abnormal findings of blood chemistry; M25.50 Pain in unspecified joint; E55.9 Vitamin D deficiency, unspecified; I10 Essential (primary) hypertension
CPT/HCPCS: 36415; 80053; 82306; 85027; 85652; 87798; 81003; 82728; 83540; 84439; 84443; 86140

== ENCOUNTER 2024-01-13 18:19 | Outpatient (REF) | payer OTHER, SELFPAY ==
[2024-01-13 11:29] LABS: Bilirubin Negative (Negative); Blood Trace-lysed (Negative); Clarity Clear (Clear); Glucose 500 mg/dL (Negative); Ketones Negative (Negative); Leukocyte Esterase Negative (Negative); Nitrite Negative (Negative); Urobilinogen 0.2 mg/dL (Up to 0.2); pH 6.5 (5-8)
[2024-01-13 12:01] LABS: Bacteria Rare HPF (Negative); C & S Indicated? No; Casts Negative LPF (Negative); Crystals Negative HPF (Negative); Epithelial Cells Negative HPF (Negative); Mucus Negative (Negative); Other Cells Negative (Negative); RBC 0-2 HPF (0-2); WBC Negative HPF (0-5)
[2024-01-13 22:20] LABS: Campylobacter PCR Negative (Negative); Salmonella PCR Negative (Negative); Shiga Toxin PCR Negative (Negative); Shigella/Enteroinvasive Ecoli Negative (Negative)
== END 2024-01-13 18:20 | disposition home or self-care (01) ==
LOC: LBN 18:19
PROVIDERS: PCP Family Medicine; Visit Provider Family Medicine
DX: R19.7 Diarrhea, unspecified (principal); R53.83 Other fatigue; R82.998 Other abnormal findings in urine
CPT/HCPCS: 87329; 87493; 87505; 81003; 81015

== ENCOUNTER 2024-01-23 02:15 | Outpatient (CLI) | payer OTHER, SELFPAY ==
[2024-01-23 12:07] LABS: Prothrombin Time 38.8 sec (9.1-11.1)
[2024-01-23 12:19] LABS: INR 4.4 (0.9-1.1)
== END 2024-01-23 02:16 | disposition home or self-care (01) ==
PROVIDERS: PCP Family Medicine; Visit Provider Nurse Practitioner Adult Health
DX: Z95.2 Presence of prosthetic heart valve (principal); I48.21 Permanent atrial fibrillation
CPT/HCPCS: 36415; 85610

== ENCOUNTER 2024-02-03 02:44 | Outpatient (CLI) | payer OTHER, SELFPAY ==
[2024-02-03 10:51] LABS: INR 3.7 (0.9-1.1); Prothrombin Time 32.9 sec (9.1-11.1)
[2024-02-03 11:37] LABS: TSH (W/Ref FT4) 19.32 uIU/mL (0.36-3.74)
[2024-02-03 12:20] LABS: FREE T4 0.96 ng/dL (0.76-1.46)
[2024-02-03 15:56] LABS: Hemoglobin A1C 5.8 % (<5.7)
[2024-02-03 21:14] LABS: T3,Free 3.3 pg/mL (2.8-5.3)
[2024-02-03 21:28] LABS: T3, Total 106 ng/dL (97-169)
[2024-02-03 22:12] LABS: Thyroglobulin Antibody <15 U/mL (<=60); Thyroperoxidase Antibody 1047 U/mL (<=60)
[2024-02-12 16:45] LABS: Thyroid Stimulating Immunoglob <1.0 TSI index (<=1.3)
== END 2024-02-03 02:45 | disposition home or self-care (01) ==
PROVIDERS: PCP Family Medicine; Visit Provider Nurse Practitioner Adult Health
DX: E03.9 Hypothyroidism, unspecified (principal); R81 Glycosuria; E11.9 Type 2 diabetes mellitus without complications; Z95.2 Presence of prosthetic heart valve; I48.21 Permanent atrial fibrillation
CPT/HCPCS: 36415; 86376; 83036; 84439; 84443; 84445; 84480; 84481; 85610

== ENCOUNTER 2024-02-16 03:27 | Outpatient (CLI) | payer OTHER, SELFPAY ==
[2024-02-16 14:02] LABS: TSH (W/Ref FT4) 10.83 uIU/mL (0.36-3.74)
[2024-02-16 14:08] LABS: INR 3.2 (0.9-1.1); Prothrombin Time 29.4 sec (9.1-11.1)
[2024-02-16 14:21] LABS: FREE T4 1.01 ng/dL (0.76-1.46)
== END 2024-02-16 03:28 | disposition home or self-care (01) ==
PROVIDERS: PCP Family Medicine; Visit Provider Internal Medicine
DX: E03.9 Hypothyroidism, unspecified (principal); Z95.2 Presence of prosthetic heart valve; I48.21 Permanent atrial fibrillation
CPT/HCPCS: 36415; 84439; 84443; 85610

== ENCOUNTER 2024-03-02 02:32 | Outpatient (CLI) | payer OTHER, SELFPAY ==
[2024-03-02 11:53] LABS: TSH (W/Ref FT4) 11.27 uIU/mL (0.36-3.74)
== END 2024-03-02 02:33 | disposition home or self-care (01) ==
LOC: LBO 02:32
PROVIDERS: PCP Family Medicine; Visit Provider Family Medicine
DX: E03.9 Hypothyroidism, unspecified (principal)
CPT/HCPCS: 36415; 84439; 84443

== ENCOUNTER 2024-03-16 02:24 | Outpatient (CLI) | payer OTHER, SELFPAY ==
[2024-03-16 10:51] LABS: INR 2.7 (0.9-1.1)
[2024-03-16 11:46] LABS: TSH (W/Ref FT4) 9.54 uIU/mL (0.36-3.74)
[2024-03-16 12:02] LABS: FREE T4 0.99 ng/dL (0.76-1.46)
== END 2024-03-16 02:25 | disposition home or self-care (01) ==
LOC: LBO 02:25
PROVIDERS: PCP Family Medicine; Visit Provider Internal Medicine
DX: E03.9 Hypothyroidism, unspecified (principal)
CPT/HCPCS: 36415; 84439; 84443; 85610

== ENCOUNTER 2024-03-24 09:49 | Emergency (ER) | payer OTHER, SELFPAY ==
[2024-03-24 10:32] VITALS: BP 132/90; PULSE 75; RESP 20; TEMP 36.2; O2SAT 95
--- NOTE | 2024-03-24 10:44 | ED.GENADUL_ITS ---
Discharge Plan Disposition Patient Disposition: Home Condition: Stable Discharge Details Clinical Impression: Lumbago with sciatica, left side Primary Care Provider: Cristal Armenta ED Provider: Mariana Gonzalez Home Meds and New Rx's Prescriptions: New prednisone 20 mg tablet 60 mg PO DAILY 9 Days Qty: 17 0RF Rx Instructions: Take 3 tabs daily x 3 days, Take 2 tabs daily x 3 days, Take one tab daily x 3 days. lidocaine 5 % adhesive patch,medicated 1 patch topical DAILY Qty: 15 0RF Rx Instructions: leave on most painful area for up to 12 hrs No Action cholecalciferol (vitamin D3) 2,000 unit capsule 2,000 unit PO DAILY cetirizine [Zyrtec] 10 mg tablet 10 mg PO DAILY Qty: 90 4RF Rx Instructions: instead of Loratidine amoxicillin 500 mg tablet 2,000 mg PO ONCE Qty: 16 2RF Rx Instructions: take 1 hour before procedure atorvastatin 20 mg tablet 20 mg PO QPM Qty: 90 4RF Qvar RediHaler 40 mcg/actuation HFA aerosol breath activated 2 inh IH BID Qty: 31.8 5RF diltiazem HCl 240 mg capsule,extended release 24hr 240 mg PO QPM Qty: 90 5RF diltiazem HCl 300 mg capsule,extended release 24hr 300 mg PO QAM Qty: 90 4RF Jardiance 10 mg tablet 10 mg PO DAILY Qty: 90 4RF warfarin 5 mg tablet 10 mg PO QHS Qty: 180 4RF Rx Instructions: [place] [facility] potassium chloride 20 mEq tablet,ER particles/crystals See Rx Instructions PO BID Qty: 270 3RF Rx Instructions: 2tabs am; 1 tab pm orally twice a day; fluticasone propionate 50 mcg/actuation spray,suspension 2 spray intranasal DAILY Qty: 47.4 5RF Rx Instructions: administer into each nostril levothyroxine 50 mcg tablet 50 mcg PO DAILY Qty: 90 6RF mirtazapine 15 mg tablet 15 mg PO QHS Qty: 90 4RF metoprolol tartrate 25 mg tablet 25 mg PO BID Qty: 180 4RF Patient Comments: pt states taking 3 times daily now magnesium chloride [Mag 64] 64 MG tablet,delayed release (DR/EC) 2 tab PO BID Qty: 180 Rx Instructions: 128 MG BID alendronate 70 mg tablet 70 mg PO QWEEK Qty: 14 3RF (DME) blood-glucose meter [FreeStyle Precision Uzair Meter] Misc See Rx Instructions .Route Qty: 1 8RF Rx Instructions: As directed. E11.9; once daily (DME) FreeStyle Precision Uzair Strips Strip See Rx Instructions .Route Qty: 90 5RF Rx Instructions: As directed. E11.9 once daily testing (DME) lancets [FreeStyle Lancets] 28 gauge misc See Rx Instructions .ROUTE .MEDSUPPLY Qty: 100 5RF Rx Instructions: daily testing E11.9 torsemide 20 mg tablet 20 mg PO DAILY Qty: 90 5RF lorazepam 0.5 mg tablet 0.5 mg PO DAILY PRN (Reason: anxiety) Qty: 30 1RF Calcium 600 + D(3) 1 EACH tablet 1 tab PO DAILY Discharge Instructions Instructions: Sciatica Exercises, Sciatica ED Additional Instructions: X-ray shows degenerative changes worse at L4-L5 which is classic for sciatica. Please take the medications as directed. Alternate ice and heat. Please return to the ER or be seen sooner for any loss of bowel or bladder control numbness or tingling in your groin area. Inability to use your leg. Follow up with primary care provider in 3-5 days. Return to ED sooner if any worsening or concerns. Referrals: Cristal Armenta [place], [place] [Primary Care Provider] - Return if symptoms worsen HPI General Mode of arrival: ambulatory . Date/Time Provider Initiated Documentation: 03/24/24 10:38 . Limitations to Documentation: no limitations . Information obtained by: patient, RN notes reviewed and old records reviewed . HPI Narrative: 63-year-old female presents to the ER with a chief complaint of left lower lumbar pain which radiates down to her left buttock, left thigh down to her ankle. She reports worse over the last 2 weeks and severe over the last 2 nights unable to get good night sleep. She has had this in the past. She has had 2 herniated disks in the past. She denies any loss of bowel or bladder control any numbness tingling or saddle anesthesia. She has been using heating pad. She is also been taking Tylenol. She is on warfarin for mitral valve replacement. Related Data Home Medications ?Medication ?Instructions ?Recorded ?Confirmed magnesium chloride 64 mg 2 tab PO BID #180 tab-caps 11/07/12 03/24/24 (magnesium chloride) tablet,delayed release (Mag 64) calcium carbonate-vitamin D3 600 1 tab PO DAILY 05/31/13 03/24/24 mg-125 unit tablet (Calcium) cetirizine 10 mg tablet (Zyrtec) 10 mg PO DAILY #90 tab-caps 09/22/18 03/24/24 cholecalciferol (vitamin D3) 50 2,000 unit PO DAILY 09/22/18 03/24/24 mcg (2,000 unit) capsule fluticasone propionate 50 2 spray intranasal DAILY #47.4 04/08/22 03/24/24 mcg/actuation nasal grams spray,suspension amoxicillin 500 mg tablet 2,000 mg (4 x 500 mg) PO ONCE #16 05/05/23 03/24/24 tabs atorvastatin 20 mg tablet 20 mg PO QPM #90 tabs 05/05/23 03/24/24 beclomethasone dipropionate 40 2 inh inhalation BID #31.8 grams 05/05/23 03/24/24 mcg/actuation HFA breath activated aerosol (Qvar RediHaler) diltiazem HCl 240 mg 240 mg PO QPM #90 caps 05/05/23 03/24/24 capsule,extended release 24 hr diltiazem HCl 300 mg 300 mg PO QAM #90 caps 05/05/23 03/24/24 capsule,extended release 24 hr empagliflozin 10 mg tablet 10 mg PO DAILY #90 tabs 05/05/23 03/24/24 (Jardiance) warfarin 5 mg tablet 10 mg (2 x 5 mg) PO QHS #180 tabs 05/05/23 03/24/24 potassium chloride 20 mEq See Rx Instructions PO BID #270 05/06/23 03/24/24 tablet,extended release(part/cryst) tab-caps alendronate 70 mg tablet 70 mg PO QWEEK #14 tabs 09/05/23 03/24/24 blood sugar diagnostic (FreeStyle #90 ea 12/02/23 03/24/24 Precision Uzair Strips) blood-glucose meter (FreeStyle #1 ea 12/02/23 03/24/24 Precision Uzair Meter) lancets 28 gauge (FreeStyle #100 ea 12/05/23 03/24/24 Lancets) torsemide 20 mg tablet 20 mg PO DAILY #90 tab-caps 01/28/24 03/24/24 lorazepam 0.5 mg tablet 0.5 mg PO DAILY PRN anxiety #30 02/05/24 03/24/24 tabs levothyroxine 50 mcg tablet 50 mcg PO DAILY #90 tabs 03/18/24 03/24/24 metoprolol tartrate 25 mg tablet 25 mg PO BID #180 tabs 03/18/24 03/24/24 mirtazapine 15 mg tablet 15 mg PO QHS #90 tabs 03/18/24 03/24/24 lidocaine 5 % topical patch 1 patch topical DAILY #15 ea 03/24/24 prednisone 20 mg tablet 60 mg (3 x 20 mg) PO DAILY Lumbago 03/24/24 9 days #17 tabs Previous Rx's ?Medication ?Instructions ?Recorded cetirizine 10 mg tablet (Zyrtec) 10 mg PO DAILY #90 tab-caps 09/22/18 fluticasone propionate 50 2 spray intranasal DAILY #47.4 04/08/22 mcg/actuation nasal grams spray,suspension amoxicillin 500 mg tablet 2,000 mg (4 x 500 mg) PO ONCE #16 05/05/23 tabs atorvastatin 20 mg tablet 20 mg PO QPM #90 tabs 05/05/23 beclomethasone dipropionate 40 2 inh inhalation BID #31.8 grams 05/05/23 mcg/actuation HFA breath activated aerosol (Qvar RediHaler) diltiazem HCl 240 mg 240 mg PO QPM #90 caps 05/05/23 capsule,extended release 24 hr diltiazem HCl 300 mg 300 mg PO QAM #90 caps 05/05/23 capsule,extended release 24 hr empagliflozin 10 mg tablet 10 mg PO DAILY #90 tabs 05/05/23 (Jardiance) warfarin 5 mg tablet 10 mg (2 x 5 mg) PO QHS #180 tabs 05/05/23 potassium chloride 20 mEq See Rx Instructions PO BID #270 05/06/23 tablet,extended release(part/cryst) tab-caps alendronate 70 mg tablet 70 mg PO QWEEK #14 tabs 09/05/23 blood sugar diagnostic (FreeStyle #90 ea 12/02/23 Precision Uzair Strips) blood-glucose meter (FreeStyle #1 ea 12/02/23 Precision Uzair Meter) lancets 28 gauge (FreeStyle #100 ea 12/05/23 Lancets) torsemide 20 mg tablet 20 mg PO DAILY #90 tab-caps 01/28/24 lorazepam 0.5 mg tablet 0.5 mg PO DAILY PRN anxiety #30 02/05/24 tabs levothyroxine 50 mcg tablet 50 mcg PO DAILY #90 tabs 03/18/24 metoprolol tartrate 25 mg tablet 25 mg PO BID #180 tabs 03/18/24 mirtazapine 15 mg tablet 15 mg PO QHS #90 tabs 03/18/24 lidocaine 5 % topical patch 1 patch topical DAILY #15 ea 03/24/24 prednisone 20 mg tablet 60 mg (3 x 20 mg) PO DAILY Lumbago 03/24/24 9 days #17 tabs Allergies Allergy/AdvReac Type Severity Reaction Status Date / Time sertraline AdvReac Severe PALPITATION Unverified 03/24/24 10:35 S lansoprazole (From Prevacid) AdvReac Intermediate DIARRHEA Unverified 03/24/24 10:35 amiodarone AdvReac Unknown lethargic Unverified 03/24/24 10:35 per pt. DOG DANDER Allergy Mild RHINITIS Uncoded 03/24/24 10:35 MOLDS AND SMUTS Allergy Mild RHINITIS Uncoded 03/24/24 10:35 General Stated Complaint: Nk/Back Pain BOOKER: 3 Review of Systems All systems reviewed & are unremarkable except as noted in HPI and below Musculoskeletal Musculoskeletal: Reports as per HPI, Reports back pain, Denies numbness and Reports radiating pain into limb Neurologic Neurologic: Denies numbness Exam Narrative Exam Narrative: Constitutional: Alert and oriented x3. Appears stated age. Normal body habitus. Head: Normocephalic, no trauma. Eyes: Pupils PERRL, Red reflex noted, EOM's intact. Eyelids symmetrical without lesions, discharge, or swelling. ENT: Bilateral TM's WNL, External ear normal to inspection, no mastoid TTP, swelling, or erythema, Nasal turbinates WNL, no nasal discharge. Normal dentition, Posterior pharynx WNL, no exudate. Chest: RRR, Normal S1, S2, distal pulses intact. Resp: Lungs clear to auscultation bilaterally, no wheezes, rales, or rhonchi. Abdomen: Soft, non-distended, Normoactive bowel sounds all 4 quads. Musculoskeletal: Normal gait, Moves all 4 extremities without difficulty. Skin: No suspicious rashes or lesions. Capillary refill less than 2 sec. Neurologic: Cranial nerves II-XII intact. Alert and oriented x 3. Motor: No deficits noted. Sensory: Intact bilaterally all 4 extremities. Hematologic/Lymphatic: No ecchymosis, no lymphadenopathy. Course Vital Signs Vital signs: Vital Signs Temperature 36.2 C L 03/24/24 10:32 Pulse 75 03/24/24 10:32 Respiratory Rate 20 03/24/24 10:32 Blood Pressure 132/90 03/24/24 10:32 Pulse Oximetry 95 03/24/24 10:32 Temperature 36.2 C L 03/24/24 10:32 Temperature Source Temporal Artery Scan 03/24/24 10:32 Pulse 75 03/24/24 10:32 Respiratory Rate 20 03/24/24 10:32 Blood Pressure 132/90 03/24/24 10:32 Blood Pressure Position Sitting 03/24/24 10:32 Pulse Oximetry 95 03/24/24 10:32 Oxygen Delivery Method Room Air 03/24/24 10:32 Oxygen Flow Rate 0 03/24/24 10:32 Pain Level 6 03/24/24 10:32 Medical Decision Making 63-year-old female presents to the ER with a chief complaint of left lower lumbar pain which radiates down to her left buttock, left thigh down to her ankle. She reports worse over the last 2 weeks and severe over the last 2 nights unable to get good night sleep. She has had this in the past. She has had 2 herniated disks in the past. She denies any loss of bowel or bladder control any numbness tingling or saddle anesthesia. She has been using heating pad. She is also been taking Tylenol. She is on warfarin for mitral valve replacement. Lumbar spine x-ray ordered, lidocaine patch and prednisone. This text was generated using AMENDIAation system, please disregard any oddities of phrase or misspellings. Imaging Data Radiologic Study: Imaging: X-Ray Radiologist's impression: EXAM: XR LUMBAR SPINE COMPLETE CLINICAL HISTORY: Lumbago, Sciatica. TECHNIQUE: 2D digital imaging was performed. Five views. COMPARISON: CR XR DEXA BONE DENSITY W/WO LUIS FERNANDO from 07/26/2022 FINDINGS: BONES: No fracture or destructive lesion. Vertebral body heights are maintained. Mild facet hypertrophy identified at L4-5 and L5-S1. DISKS: Moderate loss of disc height L4-5. Endplate osteophytes. Mild loss of disc height at L5-S1. Small endplate osteophytes. The more superior intervertebral disc spaces are maintained. ALIGNMENT: Lumbar spinal alignment is within normal limits. SOFT TISSUE: Normal. IMPRESSION: Degenerative changes, greatest at L4-5. Quality:SDOH Health Related Social Needs: No Data to Display PFSH All Active Problems (Updated 03/24/24 @ 11:50 by Mariana Gonzalez NP) Lumbago with sciatica, left side (Acute) Thyroid disease (Acute) Anxiety (Chronic) Glycosuria (Acute) Dizziness (Acute) Fatigue (Acute) Elevated alkaline phosphatase level (Acute) Screening for HIV (human immunodeficiency virus) (Acute) Encounter for hepatitis C screening test for low risk patient (Acute) Elevated serum creatinine (Acute) Annual physical exam (Acute) Encounter for screening for osteoporosis (Acute) Vitamin D deficiency (Acute) Encounter for annual physical exam (Acute) Arthralgia (Acute) Myalgia (Acute) Depressive disorder (Acute) Family history of hypertrophic cardiomyopathy (Acute) Obesity (Acute) Annual physical exam (Acute 09/09/16) Anticoagulated on warfarin (Acute) [place] [facility] Asthma (Acute 10/21/12) allergies Atrial fibrillation (Acute 11/19/12) paroxysmal; S/P ablation 11/24 04/28; Coumadin [place] Cardiomyopathy (Acute) hypertrophic cardiomyopathy; + fam hx HCM w/ sudden ; yearly echo [place] [facility] Gastroesophageal reflux disease (Acute) H/O mitral valve replacement (Acute 09/09/16) Hypothyroidism (Acute 11/19/12) ICD (implantable cardioverter-defibrillator) in place (Acute) [facility] [facility] and 02/04 Lumbago with sciatica, left side (Acute) S/P repair 2 herniated discs; 06/25 recurrent L sciatica Rosacea (Acute) Vitamin D deficiency (Acute 09/22/14) Medical History Urinary tract infection Chronic anticoagulation Surgical History Mitral valve replacement (03/26/16) [facility] [place]C ;[facility] [place]olecystectomy 05/01; [facility] [place] 11/2002 [place]IAC ABLATION[place] [place]/2005 [place]IB IM[place] 03[facility]2006 [place]AC [place] 10/2006 [place]ARDIAC ABLATION[place] [facility] 08/2009 DEFIB IMPLANT BATTERY REPLACEMENT[place] Family History Mother Hyperlipidemia Breast cancer Father , AGE 62 Alcohol abuse Heart disease Sister Heart disease Stroke Sister Allergy to soy Paternal Grandfather Heart disease Alcohol abuse Maternal Grandfather No problems noted. Paternal Grandmother No problems noted. Paternal Grandmother No problems noted. Social History Smoking/Tobacco Use Status: Never Second Hand Exposure: Yes Smoking risk assessment performed?: Yes Alcohol Intake: current Alcohol type: beer and wine Drug use: Never Substance use type: does not use Adopted: No Caregiver/Support person: No Foster care: No Household members: spouse Housing: house Number of Children: 0 number of grandchildren: 0 Communication Needs: None Education Level: high school Do you need help understanding health information?: Never current occupation: retired Pets and animals: No Sexually active: Yes Do you think of yourself as: straight/heterosexual Current gender identity: female What is your relationship status?: How often do you talk on the phone with friends or family?: three or more times per week How often do you get together with friends or relatives?: once per week How often do you attend presybeterian or worship services?: decline to answer Do you belong to any clubs or organized social groups?: no Panel score (0-1 are the most socially isolated patients): 2 What type of physical activity do you participate in: walking and other Details: treadmill, stationary bike Duration: 15-30 minutes/day Frequency: 3-4 times per week Bianca/Shinto: Non mandaeism Special bianca needs: No Agree to transfusion: Yes Seatbelt use: always Helmet use: Yes Helmet use: always Drive intox or ride w/intox highway truck driver: No Working smoke detector in home: Yes Carbon monox detector in home: Yes Firearms in home: Yes Firearms unloaded and locked: Yes Do you feel safe at home: Yes Do you feel safe in your relationship?: Yes Victim of physical abuse: No Victim of emotional abuse: No Victim of sexual abuse: No Would you like helpful sources: No
[2024-03-24] MEDS: Lidocaine 5% Patch 1 PATCH TP (10:50)
[2024-03-24] MEDS: predniSONE 20 MG TAB 60 MG PO (10:50)
--- NOTE | 2024-03-24 11:30 | DI.RAD_ITS ---
Exam(s) XR LUMBAR SPINE COMPLETE EXAM: XR LUMBAR SPINE COMPLETE CLINICAL HISTORY: Lumbago, Sciatica. TECHNIQUE: 2D digital imaging was performed. Five views. COMPARISON: CR XR DEXA BONE DENSITY W/WO LUIS FERNANDO from 07/26/2022 FINDINGS: BONES: No fracture or destructive lesion. Vertebral body heights are maintained. Mild facet hypert rophy identified at L4-5 and L5-S1. DISKS: Moderate loss of disc height L4-5. Endplate osteophytes. Mild loss of disc height at L5-S1. Small endplate osteophytes. The more superior intervertebral disc spaces are maintained. ALIGNMENT: Lumbar spinal alignment is within normal limits. SOFT TISSUE: Normal. IMPRESSION: Degenerative changes, greatest at L4-5. DATA REPOSITORY: RADIATION DOSE DELIVERED:
== END 2024-03-24 12:22 | disposition home or self-care (01) ==
PROVIDERS: Emergency Provider Registered Nurse Emergency; PCP Family Medicine
DX: M54.42 Lumbago with sciatica, left side (principal); I48.0 Paroxysmal atrial fibrillation; Z95.810 Presence of automatic (implantable) cardiac defibrillator; Z95.2 Presence of prosthetic heart valve; Z79.84 Long term (current) use of oral hypoglycemic drugs; Z79.01 Long term (current) use of anticoagulants
CPT/HCPCS: 99283; 72110; J7512

== ENCOUNTER 2024-04-02 09:04 | Emergency (ER) | payer OTHER, SELFPAY ==
[2024-04-02] VITALS (118 sets, daily range): BP systolic 87–139; BP diastolic 47–86; PULSE 72–174; RESP 13–35; TEMP 36.6–37.3; O2SAT 86–100
--- NOTE | 2024-04-02 08:45 | RT.EKG_ITS ---
APPROVED REPORT Exam: Resting ECG Reason for Exam: Weakness Patient Location: E HR:100 bpm ECG Measurements Heart Rate 100 AXIS NV [id number] P [id number] QRSd 175 QRS 259 QT 400 T 118 QTc 516 Conclusion Afib/flutter Paced rhythm, V-rate 100 No priors in our system immediately available for comparison
--- NOTE | 2024-04-02 09:22 | W.ED.GENAD ---
Discharge Plan Disposition Patient Disposition: Transfer-Acute Inpatient Care Specific Acute Inpt Facility: [facility] Condition: Serious Discharge Details Clinical Impression: GI bleeding, Non-ST elevation NC (NSTEMI), Supratherapeutic INR Primary Care Provider: Cristal Armenta ED Provider: Ernst Pena Home Meds and New Rx's Prescriptions: No Action cholecalciferol (vitamin D3) 2,000 unit capsule 2,000 unit PO DAILY cetirizine [Zyrtec] 10 mg tablet 10 mg PO DAILY Qty: 90 4RF Rx Instructions: instead of Loratidine amoxicillin 500 mg tablet 2,000 mg PO ONCE Qty: 16 2RF Rx Instructions: take 1 hour before procedure atorvastatin 20 mg tablet 20 mg PO QPM Qty: 90 4RF Qvar RediHaler 40 mcg/actuation HFA aerosol breath activated 2 inh IH BID Qty: 31.8 5RF diltiazem HCl 240 mg capsule,extended release 24hr 240 mg PO QPM Qty: 90 5RF diltiazem HCl 300 mg capsule,extended release 24hr 300 mg PO QAM Qty: 90 4RF Jardiance 10 mg tablet 10 mg PO DAILY Qty: 90 4RF warfarin 5 mg tablet 10 mg PO QHS Qty: 180 4RF Rx Instructions: DIRECTED BY [facility] [place]; BASED ON INR potassium chloride 20 mEq tablet,ER particles/crystals See Rx Instructions PO BID Qty: 270 3RF Rx Instructions: 2tabs am; 1 tab pm orally twice a day; fluticasone propionate 50 mcg/actuation spray,suspension 2 spray intranasal DAILY Qty: 47.4 5RF Rx Instructions: administer into each nostril levothyroxine 50 mcg tablet 50 mcg PO DAILY Qty: 90 6RF mirtazapine 15 mg tablet 15 mg PO QHS Qty: 90 4RF magnesium chloride [Mag 64] 64 MG tablet,delayed release (DR/EC) 2 tab PO BID Qty: 180 Rx Instructions: 128 MG BID alendronate 70 mg tablet 70 mg PO QWEEK Qty: 14 3RF (DME) blood-glucose meter [FreeStyle Precision Uzair Meter] Misc See Rx Instructions .Route Qty: 1 8RF Rx Instructions: As directed. E11.9; once daily (DME) FreeStyle Precision Uzair Strips Strip See Rx Instructions .Route Qty: 90 5RF Rx Instructions: As directed. E11.9 once daily testing (DME) lancets [FreeStyle Lancets] 28 gauge misc See Rx Instructions .ROUTE .MEDSUPPLY Qty: 100 5RF Rx Instructions: daily testing E11.9 torsemide 20 mg tablet 20 mg PO DAILY Qty: 90 5RF lorazepam 0.5 mg tablet 0.5 mg PO DAILY PRN (Reason: anxiety) Qty: 30 1RF Calcium 600 + D(3) 1 EACH tablet 1 tab PO DAILY metoprolol tartrate 25 mg tablet 25 mg PO TID Patient Comments: pt states taking 3 times daily now Discharge Data Discharge Date/Time-TO BE ENTERED AT DEPARTURE: 04/02/24 18:30 HPI General Date/Time Provider Initiated Documentation: 04/02/24 09:17. HPI Narrative: This 64-year-old female with history of mechanical mitral valve, chronic anticoagulation on Coumadin, cardiomyopathy, CHF, atrial flutter with ICD, hypothyroidism, poorly controlled presents with report of progressive weakness throughout the week with episode of dark vomitus this morning. Patient states that she felt quite unwell last evening but did not have any diarrhea or vomiting. She denies any chest pain or shortness of breath. She had 1 episode of nausea with vomiting this morning in the absence of any chest discomfort dizziness or headache. Reports the vomit was dark in color. There was just a single episode. She denies any history of coronary artery disease but does have a significant cardiac history for which she has managed at [facility]. She denies any blood in stool. She reports that she just completed a course of prednisone yesterday for which she was taking for back pain with a herniated lumbar disc. She actually states her back pain is mildly improved but she has been feeling quite unwell while taking the prednisone. She has not had her INR checked for a few weeks and is due for check. Denies any upper respiratory symptoms. States that she is unable to take more than 2-3 steps without becoming dyspneic. Denies hemoptysis prior to arrival. Related Data Home Medications ?Medication ?Instructions ?Recorded ?Confirmed magnesium chloride 64 mg 2 tab PO BID #180 tab-caps 11/07/12 04/02/24 (magnesium chloride) tablet,delayed release (Mag 64) calcium carbonate-vitamin D3 600 1 tab PO DAILY 05/31/13 04/02/24 mg-125 unit tablet (Calcium) cetirizine 10 mg tablet (Zyrtec) 10 mg PO DAILY #90 tab-caps 09/22/18 04/02/24 cholecalciferol (vitamin D3) 50 2,000 unit PO DAILY 09/22/18 04/02/24 mcg (2,000 unit) capsule fluticasone propionate 50 2 spray intranasal DAILY #47.4 04/08/22 04/02/24 mcg/actuation nasal grams spray,suspension amoxicillin 500 mg tablet 2,000 mg (4 x 500 mg) PO ONCE #16 05/05/23 04/02/24 tabs atorvastatin 20 mg tablet 20 mg PO QPM #90 tabs 05/05/23 04/02/24 beclomethasone dipropionate 40 2 inh inhalation BID #31.8 grams 05/05/23 04/02/24 mcg/actuation HFA breath activated aerosol (Qvar RediHaler) diltiazem HCl 240 mg 240 mg PO QPM #90 caps 05/05/23 04/02/24 capsule,extended release 24 hr diltiazem HCl 300 mg 300 mg PO QAM #90 caps 05/05/23 04/02/24 capsule,extended release 24 hr empagliflozin 10 mg tablet 10 mg PO DAILY #90 tabs 05/05/23 04/02/24 (Jardiance) warfarin 5 mg tablet 10 mg (2 x 5 mg) PO QHS #180 tabs 05/05/23 04/02/24 potassium chloride 20 mEq See Rx Instructions PO BID #270 05/06/23 04/02/24 tablet,extended release(part/cryst) tab-caps alendronate 70 mg tablet 70 mg PO QWEEK #14 tabs 09/05/23 04/02/24 blood sugar diagnostic (FreeStyle #90 ea 12/02/23 04/02/24 Precision Uzair Strips) blood-glucose meter (FreeStyle #1 ea 12/02/23 04/02/24 Precision Uzair Meter) lancets 28 gauge (FreeStyle #100 ea 12/05/23 04/02/24 Lancets) torsemide 20 mg tablet 20 mg PO DAILY #90 tab-caps 01/28/24 04/02/24 lorazepam 0.5 mg tablet 0.5 mg PO DAILY PRN anxiety #30 02/05/24 04/02/24 tabs levothyroxine 50 mcg tablet 50 mcg PO DAILY #90 tabs 03/18/24 04/02/24 mirtazapine 15 mg tablet 15 mg PO QHS #90 tabs 03/18/24 04/02/24 metoprolol tartrate 25 mg tablet 25 mg PO TID 04/02/24 04/02/24 Previous Rx's ?Medication ?Instructions ?Recorded cetirizine 10 mg tablet (Zyrtec) 10 mg PO DAILY #90 tab-caps 09/22/18 fluticasone propionate 50 2 spray intranasal DAILY #47.4 04/08/22 mcg/actuation nasal grams spray,suspension amoxicillin 500 mg tablet 2,000 mg (4 x 500 mg) PO ONCE #16 05/05/23 tabs atorvastatin 20 mg tablet 20 mg PO QPM #90 tabs 05/05/23 beclomethasone dipropionate 40 2 inh inhalation BID #31.8 grams 05/05/23 mcg/actuation HFA breath activated aerosol (Qvar RediHaler) diltiazem HCl 240 mg 240 mg PO QPM #90 caps 05/05/23 capsule,extended release 24 hr diltiazem HCl 300 mg 300 mg PO QAM #90 caps 05/05/23 capsule,extended release 24 hr empagliflozin 10 mg tablet 10 mg PO DAILY #90 tabs 05/05/23 (Jardiance) warfarin 5 mg tablet 10 mg (2 x 5 mg) PO QHS #180 tabs 05/05/23 potassium chloride 20 mEq See Rx Instructions PO BID #270 05/06/23 tablet,extended release(part/cryst) tab-caps alendronate 70 mg tablet 70 mg PO QWEEK #14 tabs 09/05/23 blood sugar diagnostic (FreeStyle #90 ea 12/02/23 Precision Uzair Strips) blood-glucose meter (FreeStyle #1 ea 12/02/23 Precision Uzair Meter) lancets 28 gauge (FreeStyle #100 ea 12/05/23 Lancets) torsemide 20 mg tablet 20 mg PO DAILY #90 tab-caps 01/28/24 lorazepam 0.5 mg tablet 0.5 mg PO DAILY PRN anxiety #30 02/05/24 tabs levothyroxine 50 mcg tablet 50 mcg PO DAILY #90 tabs 03/18/24 mirtazapine 15 mg tablet 15 mg PO QHS #90 tabs 03/18/24 Allergies Allergy/AdvReac Type Severity Reaction Status Date / Time sertraline AdvReac Severe PALPITATION Unverified 04/02/24 09:33 S lansoprazole (From Prevacid) AdvReac Intermediate DIARRHEA Verified 04/02/24 09:33 amiodarone AdvReac Unknown lethargic Verified 04/02/24 09:33 per pt. DOG DANDER Allergy Mild RHINITIS Uncoded 04/02/24 09:33 MOLDS AND SMUTS Allergy Mild RHINITIS Uncoded 04/02/24 09:33 General Stated Complaint: GenMedical BOOKER: 3 Exam Narrative Exam Narrative: Alert and oriented 64-year-old female, no acute distress, lungs clear to auscultation, tired in appearance, cardiac rate regular, systolic murmur, no abdominal tenderness, pallor, alert and oriented x 4, conversant, no peripheral edema or tenderness, distal pulses intact all 4 extremities, guaiac positive tarry Course Vital Signs Vital signs: Vital Signs Temperature 36.6 C 04/02/24 09:04 Pulse 104 H 04/02/24 09:04 Respiratory Rate 15 04/02/24 09:04 Blood Pressure 112/86 04/02/24 09:04 Pulse Oximetry 99 04/02/24 09:04 Temperature 36.6 C 04/02/24 09:04 Temperature Source Oral 04/02/24 09:04 Pulse 104 H 04/02/24 09:04 Respiratory Rate 15 04/02/24 09:04 Blood Pressure 112/86 04/02/24 09:04 Blood Pressure Position Sitting 04/02/24 09:04 Pulse Oximetry 99 04/02/24 09:04 Oxygen Delivery Method Room Air 04/02/24 09:04 Oxygen Flow Rate 0 04/02/24 09:04 Pain Level 0 04/02/24 09:04 Medical Decision Making 64-year-old complex female patient presenting with episode of nausea, weakness, shortness of breath, and vomiting this morning. On arrival with baseline blood pressure but pale in appearance. EKG is baseline for patient in atrial flutter, paced. Labs were ordered for further assessment and CBC was found to present with anemia, hemoglobin decreased from 14-10 over the course of 3 months, last hemoglobin in December of this year. INR was found to be 10 likely in the presence of recent prednisone course. Guaiac was performed and is black tarry stool was noted, heme positive. Episode of hemoptysis, approximately a dime sized clot of blood was expectorated. Patient remains hemodynamically stable, CBC was rechecked and found to be stable for patient at 10 for her hemoglobin. I do not feel patient needs transfusion at this time although consent was obtained secondary to ordering FFP and vitamin K after consultation urgently with cardiology at [facility]. I spoke with Dr. Harris he recommends either PCC or FFP and 10 of vitamin K to reverse this patient with a known mechanical valve. We did consider risk benefit and given that patient is bleeding from 3 separate sources likely, I think the benefit outweighs the risk at this time. I then spoke with medicine at [facility] as we do not have gastroenterology or cardiology services available at this facility until Friday of this week. Secondary to significant concern for potential decompensation and fragile patient, recommendation was made to transfer patient to higher level of care and for continuity of care purposes [facility] is the preferred center. Patient wishes to remain a full code. She has remained relatively stable throughout this encounter, she is received Protonix 40 mg IV, Protonix infusion continuous IV, IV fluids maintenance at 100 cc an hour, repeat CBCs every 2 hours. I will hold on octreotide as patient does not consume alcohol and has no known history of varices without any additional episodes of bleeding in the emergency department. Patient has 2 lines and will remain on telemetry monitoring. She received 5 mg of Compazine and approximately 2 hours later was feeling quite anxious so we did order 0.5 mg of IV Ativan. Patient is resting comfortably at time of reassessment pending repeat CBC at 2 PM. Patient has been accepted by Dr. Dale for [facility] and is pending bed placement at this time At 1530 we are still pending bed placement at [facility]. Patient's repeat CBC shows a downtrending hemoglobin in asymptomatic patient with concern for continued bleeding, blood pressure remains low normal, will initiate 1 unit of blood. Repeat INR is 2.1. Repeat troponin 280 decreased from 316, does not endorse any chest pain or shortness of breath. Will hold on any anticoagulants at this time likely in the presence of a type II not elevation NC. Consent for transfusion obtained. Will transition care to Ernst Pena pending transfer to [facility]. Quality:[facility] Health Related Social Needs: No Data to Display Critical Care Time Critical Care Time Attestation: Approximately 45 minutes of critical care time secondary to acute blood loss anemia in the presence of anticoagulation and supratherapeutic INR requiring reversal after consultation with cardiology at [facility]. Persistent telemetry monitoring, diagnostic interpretation and review, cardiology interpretation and review, prior medical history from [facility] review, repeat diagnostic lab interpretation and review, IV blood product administration, FFP and vitamin K administration, monitoring for transfusion reaction, hospitalist medicine consultation for transfer. Repeat troponin monitoring in the presence of a non-STEMI type II likely secondary to acute blood loss anemia and supratherapeutic INR. [facility] All Active Problems (Updated 04/02/24 @ 16:26 by MARIA L Shafer) Supratherapeutic INR (Acute) Non-ST elevation NC (NSTEMI) (Acute) GI bleeding (Chronic) Lumbago with sciatica, left side (Acute) Thyroid disease (Acute) Anxiety (Chronic) Glycosuria (Acute) Dizziness (Acute) Fatigue (Acute) Elevated alkaline phosphatase level (Acute) Screening for HIV (human immunodeficiency virus) (Acute) Encounter for hepatitis C screening test for low risk patient (Acute) Elevated serum creatinine (Acute) Annual physical exam (Acute) Encounter for screening for osteoporosis (Acute) Vitamin D deficiency (Acute) Encounter for annual physical exam (Acute) Arthralgia (Acute) Myalgia (Acute) Depressive disorder (Acute) Family history of hypertrophic cardiomyopathy (Acute) Obesity (Acute) Annual physical exam (Acute 09/09/16) Anticoagulated on warfarin (Acute) handled by [facility] [place] Asthma (Acute 10/21/12) allergies Atrial fibrillation (Acute 11/19/12) paroxysmal; S/P ablation 11/24 04/28; Coumadin [place] Cardiomyopathy (Acute) hypertrophic cardiomyopathy; + fam hx HCM w/ sudden ; yearly echo at [facility] [place] Gastroesophageal reflux disease (Acute) H/O mitral valve replacement (Acute 09/09/16) Hypothyroidism (Acute 11/19/12) ICD (implantable cardioverter-defibrillator) in place (Acute) [facility] [place]; [facility] [place]-replaced 2009 and 02/04 Lumbago with sciatica, left side (Acute) S/P repair 2 herniated discs; 06/25 recurrent L sciatica Rosacea (Acute) Vitamin D deficiency (Acute 09/22/14) Medical History Urinary tract infection Chronic anticoagulation Surgical History Mitral valve replacement (03/26/16) [facility] [place] HERNIATED DISC ;[facility] [place] Cholecystectomy 05/01; [facility] [place] CARDIAC 11/2002 CARDIAC ABLATION-[facility] [place] 12/2005 DEFIB IMPLANT-[facility] [place] 03/2006 CARDIAC ABLATION-[facility] [place] 10/2006 CARDIAC ABLATION- [facility] [place] 08/2009 DEFIB IMPLANT BATTERY REPLACEMENT-[facility] [place] [place] Family History Mother Hyperlipidemia Breast cancer Father , AGE 62 Alcohol abuse Heart disease Sister Heart disease Stroke Sister Allergy to soy Paternal Grandfather Heart disease Alcohol abuse Maternal Grandfather No problems noted. Paternal Grandmother No problems noted. Paternal Grandmother No problems noted. Social History Smoking/Tobacco Use Status: Never Second Hand Exposure: Yes Smoking risk assessment performed?: Yes Alcohol Intake: current Alcohol type: beer and wine Drug use: Never Substance use type: does not use Adopted: No Caregiver/Support person: No Foster care: No Household members: spouse Housing: house Number of Children: 0 number of grandchildren: 0 Communication Needs: None Education Level: high school Do you need help understanding health information?: Never current occupation: retired Pets and animals: No Sexually active: Yes Do you think of yourself as: straight/heterosexual Current gender identity: female What is your relationship status?: How often do you talk on the phone with friends or family?: three or more times per week How often do you get together with friends or relatives?: once per week How often do you attend jain or baptist services?: decline to answer Do you belong to any clubs or organized social groups?: no Panel score (0-1 are the most socially isolated patients): 2 What type of physical activity do you participate in: walking and other Details: treadmill, stationary bike Duration: 15-30 minutes/day Frequency: 3-4 times per week Bianca/Sikhism: Non anabaptism Special bianca needs: No Agree to transfusion: Yes Seatbelt use: always Helmet use: Yes Helmet use: always Drive intox or ride w/intox tanker truck driver: No Working smoke detector in home: Yes Carbon monox detector in home: Yes Firearms in home: Yes Firearms unloaded and locked: Yes Do you feel safe at home: Yes Do you feel safe in your relationship?: Yes Victim of physical abuse: No Victim of emotional abuse: No Victim of sexual abuse: No Would you like helpful sources: No Sign Out Sign Out Data: Sign Out Comment: pending [facility] [facility] [place] tx. gi bleed with supratherapeutic INR/reversed/ mech mitral valve with ICD. receiving 1 unit of PRBC secondary to drop in hgb from 10-8.4. Last updated by Shonda Arroyo PA at 04/02/24 15:59
[2024-04-02 09:31] LABS: Abs Immature Grans 0.91 10^3/uL (0.0-0.06); HGB 10.1 g/dL (11.2-15.7); MCH 30.4 pg (27.0-33.0); MCHC 32.6 % (32.0-36.0); MCV 93 fL (80-95); MPV 9.4 fL (8.0-11.0); Nucleated RBC 0.3 % (0.0-0.3); Platelet Count 266 10^3/uL (130-400); RBC 3.32 10^6/uL (3.93-5.22); RDW 13.6 % (11.7-14.6); RDW-SD 46.4 fL; WBC 15.89 10^3/uL (4.4-10.8)
[2024-04-02 09:52] LABS: Absolute Lymphocyte Count 2.38 10^3/uL (1.2-3.4); Absolute Monocyte Count 2.38 10^3/uL (0.1-0.8); Absolute Neutrophil Count 10.33 10^3/uL (1.2-6.7); Diff Comment Manual Differential; Metamyelocytes % 3; Myelocytes % 2; RBC Morphology Normal
[2024-04-02 09:53] LABS: ALT 44 U/L (14-59); AST 27 U/L (15-37); Albumin 3.3 g/dL (3.4-5.0); Alkaline Phosphatase 35 U/L (46-116); BUN 50 mg/dL (7-18); Bilirubin, Total 0.66 mg/dL (0.2-1.0); CREATININE 1.1 mg/dL (0.55-1.02); Calcium 8.7 mg/dL (8.5-10.1); Chloride 104 mmol/L (98-107); Estimated GFR 56.11 (mL/min/1.73m2); Glucose 146 mg/dL (74-106); Magnesium 2.3 mg/dL (1.8-2.4); Potassium 4.5 mmol/L (3.5-5.1); Prothrombin Time 88.3 sec (9.1-11.1); Sodium 138 mmol/L (136-145); TSH (W/Ref FT4) 29.46 uIU/mL (0.36-3.74); Total Protein 6.6 g/dL (6.4-8.2)
[2024-04-02 09:55] LABS: INR 10.9 (0.9-1.1)
[2024-04-02 09:56] LABS: NT-proBNP 2217 pg/mL (<300)
[2024-04-02 09:59] LABS: Troponin I 325 ng/L (<or=51)
[2024-04-02 10:07] LABS: COVID-19 PCR Negative (Negative); Influenza A PCR Negative (Negative); Influenza B PCR Negative (Negative); RSV PCR Negative (Negative)
[2024-04-02 10:08] LABS: Source Nasopharynx
[2024-04-02 10:21] LABS: FREE T4 0.96 ng/dL (0.76-1.46)
[2024-04-02] MEDS: Prochlorperazine 10 MG/2 ML VIAL 5 MG IVP (10:26)
[2024-04-02] MEDS: Pantoprazole 40 MG VIAL IVP (10:26)
[2024-04-02] MEDS: PHYTONADIONE 10 MG in Normal Saline 50 ML 200 MG IVPB (10:46)
[2024-04-02 10:51] LABS: Troponin I 316 ng/L (<or=51)
[2024-04-02 11:00] LABS: HCT 30.5 % (36.0-46.0); MCH 30.7 pg (27.0-33.0); MCHC 32.8 % (32.0-36.0); MCV 94 fL (80-95); MPV 9.1 fL (8.0-11.0); Platelet Count 247 10^3/uL (130-400); RBC 3.26 10^6/uL (3.93-5.22); RDW 13.7 % (11.7-14.6); WBC 15.56 10^3/uL (4.4-10.8)
[2024-04-02 11:16] LABS: Absolute Lymphocyte Count 3.42 10^3/uL (1.2-3.4); Absolute Monocyte Count 0.78 10^3/uL (0.1-0.8); Absolute Neutrophil Count 10.89 10^3/uL (1.2-6.7); Bands % 1 %; Diff Comment Manual Differential; Metamyelocytes % 3; RBC Morphology Normal
[2024-04-02] MEDS: Normal Saline 1,000 ML 100 ML IV (11:39)
[2024-04-02] MEDS: LORazepam 2 MG/ML VIAL 0.5 MG IVP (11:39)
[2024-04-02] MEDS: PANTOPRAZOLE 80 MG in Normal Saline 100 ML 10 MG IV (12:11)
--- NOTE | 2024-04-02 13:27 | DI.RAD_ITS ---
Exam(s) XR PORTABLE CHEST AP EXAM: XR PORTABLE CHEST AP CLINICAL HISTORY: hemoptysis. TECHNIQUE: 2D digital imaging was performed. COMPARISON: No exams were available for comparison FINDINGS: Single AP portable view. Sternotomy wires. Cardiomegaly. Bipolar left subclavian pacemaker with lead tips in RA and right ve ntricle. Also prosthetic cardiac valve noted. There is no widening of the mediastinum. No pulmonary edema. There is no infiltrate evident in the right lung but there appears to be probable bronchiectasis in t he right lower lobe. No obvious focal left lung findings. No obvious pleural effusions. IMPRESSION: As above. Recommend nonportable PA and lateral views when clinically possible, or alternatively CT s can. DATA REPOSITORY: RADIATION DOSE DELIVERED:
[2024-04-02 14:07] LABS: HCT 25.5 % (36.0-46.0); HGB 8.4 g/dL (11.2-15.7); MCH 31.2 pg (27.0-33.0); MCHC 32.9 % (32.0-36.0); MCV 95 fL (80-95); MPV 9.2 fL (8.0-11.0); Platelet Count 200 10^3/uL (130-400); RBC 2.69 10^6/uL (3.93-5.22); RDW 13.9 % (11.7-14.6); RDW-SD 47.6 fL; WBC 13.82 10^3/uL (4.4-10.8)
[2024-04-02 14:20] LABS: Bilirubin Negative (Negative); Blood Negative (Negative); Clarity Clear (Clear); Glucose Negative (Negative); Ketones Negative (Negative); Leukocyte Esterase Large (Negative); Nitrite Negative (Negative); Specific Gravity 1.015 (1.005-1.025); pH 6.5 (5-8)
[2024-04-02 14:29] LABS: INR 2.1 (0.9-1.1); Prothrombin Time 19.8 sec (9.1-11.1)
[2024-04-02 14:30] LABS: Bacteria Few HPF (Negative); C & S Indicated? No/Sq. Contamination; Casts Negative LPF (Negative); Crystals Negative HPF (Negative); Epithelial Cells Moderate HPF (Negative); Mucus Negative (Negative); RBC 0-2 HPF (0-2)
[2024-04-02 14:34] LABS: Absolute Eosinophil Count 0.28 10^3/uL (0.0-0.7); Absolute Lymphocyte Count 1.66 10^3/uL (1.2-3.4); Absolute Monocyte Count 1.11 10^3/uL (0.1-0.8); Absolute Neutrophil Count 10.23 10^3/uL (1.2-6.7); Bands % 1 %
[2024-04-02 14:35] LABS: Diff Comment Manual Differential; Metamyelocytes % 3; Myelocytes % 1; RBC Morphology Normal
[2024-04-02 14:45] LABS: Troponin I 281 ng/L (<or=51)
--- NOTE | 2024-04-02 15:30 | RT.EKG_ITS ---
APPROVED REPORT Exam: Resting ECG Reason for Exam: chest pain Patient Location: E HR:85 bpm ECG Measurements Heart Rate 85 AXIS NE [id number] P [id number] QRSd 168 QRS 250 QT 436 T 117 QTc 548 Conclusion A-flutter, paced rhythm, V-rate 85
--- NOTE | 2024-04-02 16:10 | W.EDPROG ---
Date of service: 04/02/24 Time of Service: 16:10 Medical Decision Making This dictation utilizes [id number] dictation software and may contain unedited grammatical errors. Patient seen in sign-out from Shonda Arroyo PA-C- please see her complete note. Essentially this 64 y/o F presented by EMS with nausea and vomiting, received a Covid-19 shot on Friday, just finished a course of prednisone for back pain yesterday. Patient is on chronic anticoagulation on Coumadin. Patient endorses dark colored emesis. Patient has not complained on chest pain but does have severe dyspnea on exertion with only 2-3 steps. In primary work-up she was found to have an INR of 10, and was reversed. She was found to have NSTEMI with Trops trending down in the 300s to 280. She was found to have anemia on first CBC of 10, with a drop to 8.4, has received saline bolus of 1000mL. Patient has elevated BNP of 2200, and severe derangement of TSH to 29. Patient was consulted with Dr. Harris of Cardiology, recommends [facility], accepting Dr. Dale, awaiting bed. He had recommended FFP and Vitamin K reversal- holding octreotide as there is no history of ETOH or varices. Patient received 40mg IV protonix and was started on protonix infusion and fluids at 100cc/hr. Patient's BPs are soft 90s/70 at time of shift-change. There is concern for significant deterioration, need for monitoring for fluid overload, and patient is receiving 1 unit pRBCs currently. Patients' medical history: Chronic anticoagulation, mitral valve replacement, thyroid disease, asthma, atrial fibrillation, cardiomyopathy, implanted cardio defibrillator. Family and social history: Family history of hypertrophic cardiomyopathy. Pertinent exam findings / vital signs include prior provider noted dark tarry stool on CRIS, with guaiac positive. [ ] Differential / pathologies of concern include GI Bleeding, NSTEMI, Supratherpeutic INR. Diagnostic studies of: -Reviewed prior studies- -HgB dropped from 10 to 8 -INR initially 10, repeat 2.1 -Trop 280, trending down from 300s, no symptoms of ACS, EKG without STEMI -CXR shows bronchiectasis in R lower lobe, widened mediastinum -Type and screen shows a positive without atypical antibodies -COVID/flu/RSV PCR negative -Magnesium within normal limits *added CTA Thorax/ABD/Pelvis w Contrast to assess for possible focal hemorrhage, and assess CXR findings of widened mediastinum - no findings Interventions of: -40mg IV protonix > protonix infusion continuous, 1L saline bolus, 100cc/hr maintenance, 5mg comapzine, FFP & Vitamine K, 0.5mg IV ativan. 1 unit pRBCs starting at time of sign-out. ED Course/Assessment/Plan: 1730: Patients BP now 88/54 MAP of 65, adding 500mL bolus fluid, will call [facility] for more urgent transfer, considering adding pressors. Consulting with EM Attending Dr. Chen. -[facility] states they have a bed at 1739. Will await repeat H&H and make transport decision, BP is improved to 113/60 with increasing rate of transfusion and additional 500mL fluid bolus. -Repeat H&H shows 7.8 - giving 1g IV tXa, patient has 30-50% of her unit of blood hanging, departing with [facility] at 1815. BP SBP >100. 1815: called [facility] Xfer center to update them, likely bleeding has slowed with proper reversal, drop from 8.4 > 7.8 over hours. Recommend urgent scope when she arrives. Disposition of GI Bleeding, Supratherapeutic INR, Non-ST elevation NJ (NSTEMI). Patient verbalized understanding of the plan and return to ED criteria and engaged in shared decision making. Medical Records Medical records reviewed: Yes I reviewed the patient's medical records. Imaging Data Radiologic Study: Attestation: I personally reviewed and interpreted this imaging study as follows: Imaging: X-Ray Radiologist's impression: EXAM: XR PORTABLE CHEST AP CLINICAL HISTORY: hemoptysis. TECHNIQUE: 2D digital imaging was performed. COMPARISON: No exams were available for comparison FINDINGS: Single AP portable view. Sternotomy wires. Cardiomegaly. Bipolar left subclavian pacemaker with lead tips in RA and right ventricle. Also prosthetic cardiac valve noted. There is no widening of the mediastinum. No pulmonary edema. There is no infiltrate evident in the right lung but there appears to be probable bronchiectasis in the right lower lobe. No obvious focal left lung findings. No obvious pleural effusions. IMPRESSION: As above. Recommend nonportable PA and lateral views when clinically possible, or alternatively CT scan. Radiologic Study #2: Attestation: I personally reviewed and interpreted this imaging study as follows: Imaging: CT Scan Radiologist's impression: EXAM: CT THORAX ABD/PEL CTA CLINICAL HISTORY: GI Bleeding, profound anemia. TECHNIQUE: Imaging Protocol: Axial computed tomography images with coronal and sagittal reformatted images were created and reviewed CONTRAST MATERIAL: Intravenous: Omnipaque 350 Contrast volume:100 ml Oral: yes / no Intravenous: Omnipaque 350 Contrast volume:100 COMPARISON: US US ABDOMEN from 11/26/2023 CR XR PORTABLE CHEST AP from 04/02/2024 FINDINGS: CHEST: Tracheobronchial tree: Patent. Pulmonary parenchyma: No consolidation or dominant measurable mass. Mild scarring posterior right lower lobe. Pleura: No effusion or pneumothorax. Mediastinum: Within normal limits. Aorta: Thoracic portion non-dilated. Pulmonary arteries: No visible emboli. Heart: Massively enlarged the bilateral atria. Mitral valve prosthesis. No pericardial effusion. Bones: Unremarkable for age. No lytic or blastic lesions.No compression fractures. Sternal wires. Soft tissues: Pacemaker. ABDOMEN and PELVIS: Liver: Normal density. No measurable mass. Gallbladder and biliary tract: Status post cholecystectomy. Stable mild dilatation of the common bile duct Pancreas: Normal density, no abnormal calcifications or inflammatory process. Spleen: Normal. Kidneys: Normal size, contour and axis. No radiodense stones. No obstructive uropathy. No suspicious masses seen. Adrenal glands: No masses seen. Aorta: Abdominal portion non-dilated. Lymph nodes: Within normal limits. Soft tissues: Unremarkable. Bladder: Unremarkable. Bowel: Small hiatal hernia. No obstruction or bowel wall thickening. Sigmoid diverticulosis. Stool in rectum. Little stool elsewhere. Appendix normal. No evidence of active GI bleed. Peritoneal cavity: No ascites. No focal collection. No mesenteric inflammatory response. No free air. Bones: Unremarkable for age. Reproductive organs: Calcified uterine fibroid. IMPRESSION: No acute abnormality in the chest, abdomen or pelvis. Lab Data Lab results reviewed: Yes I reviewed the patient's lab results. Labs: Laboratory Tests Range/Units 04/02/24 04/02/24 04/02/24 09:16 09:20 10:22 WBC (4.4-10.8) 10^3/uL 15.89 H RBC (3.93-5.22) 10^6/uL 3.32 L Hgb (11.2-15.7) g/dL 10.1 L Hct (36.0-46.0) % 31.0 L MCV (80-95) fL 93 MCH (27.0-33.0) pg 30.4 MCHC (32.0-36.0) % 32.6 RDW (11.7-14.6) % 13.6 Plt Count (130-400) 10^3/uL 266 MPV (8.0-11.0) fL 9.4 Immature Gran % See Differential Neutrophils % % 65.0 Band Neutrophils % % Lymphocytes % % 15.0 Monocytes % % 15.0 Eosinophils % % 0.0 Basophils % % 0.0 Metamyelocytes % 3 Myelocytes % 2 Nucleated RBC % (0.0-0.3) % 0.3 Absolute Neutrophils (1.2-6.7) 10^3/uL 10.33 H Absolute Lymphocytes (1.2-3.4) 10^3/uL 2.38 Absolute Monocytes (0.1-0.8) 10^3/uL 2.38 H Absolute Eosinophils (0.0-0.7) 10^3/uL 0.00 Absolute Basophils (0.0-0.2) 10^3/uL 0.00 RBC Morphology Normal PT (9.1-11.1) sec 88.3 H INR (0.9-1.1) 10.9 H* Sodium (136-145) mmol/L 138 Potassium (3.5-5.1) mmol/L 4.5 Chloride (98-107) mmol/L 104 Carbon Dioxide (21.0-32.0) mmol/L 21.0 Anion Gap (3-11) mmol/L 13.0 H BUN (7-18) mg/dL 50 H Creatinine (0.55-1.02) mg/dL 1.1 H Est GFR (CKD-EPI 2020) (mL/min/1.73m2) 56.11 Glucose (74-106) mg/dL 146 H Calcium (8.5-10.1) mg/dL 8.7 Magnesium (1.8-2.4) mg/dL 2.3 Total Bilirubin (0.2-1.0) mg/dL 0.66 AST (15-37) U/L 27 ALT (14-59) U/L 44 Alkaline Phosphatase (46-116) U/L 35 L Troponin I (<or=51) ng/L 325 H* 316 H* NT-Pro-B Natriuret Pep (<300) pg/mL 2217 H Total Protein (6.4-8.2) g/dL 6.6 Albumin (3.4-5.0) g/dL 3.3 L TSH (0.36-3.74) uIU/mL 29.46 H Free T4 (0.76-1.46) ng/dL 0.96 Urine Color (Yellow) Urine Clarity (Clear) Urine pH (5-8) Ur Specific [place] (1.005-1.025) Urine Protein (Neg-Trace) mg/dL Urine Ketones (Negative) mg/dL Urine Blood (Negative) Urine Nitrite (Negative) Urine Bilirubin (Negative) Urine Urobilinogen (Up to 0.2) mg/dL Ur Leukocyte Esterase (Negative) Urine RBC (0-2) HPF Urine WBC (0-5) HPF Ur Epithelial Cells (Negative) HPF Urine Crystals (Negative) HPF Urine Bacteria (Negative) HPF Urine Casts (Negative) LPF Urine Mucus (Negative) Ur Culture Indicated? Urine Glucose (Negative) mg/dL COVID-19 Source Nasopharynx SARS-CoV-2 (PCR) (Negative) Negative Influenza Type A (PCR) (Negative) Negative Influenza Type B (PCR) (Negative) Negative RSV (PCR) (Negative) Negative ABO/Rh A Positive Blood Type Recheck Antibody Screen NEGATIVE Range/Units 04/02/24 04/02/24 04/02/24 10:37 10:56 14:00 WBC (4.4-10.8) 10^3/uL 15.56 H 13.82 H RBC (3.93-5.22) 10^6/uL 3.26 L 2.69 L Hgb (11.2-15.7) g/dL 10.0 L 8.4 L Hct (36.0-46.0) % 30.5 L 25.5 L MCV (80-95) fL 94 95 MCH (27.0-33.0) pg 30.7 31.2 MCHC (32.0-36.0) % 32.8 32.9 RDW (11.7-14.6) % 13.7 13.9 Plt Count (130-400) 10^3/uL 247 200 MPV (8.0-11.0) fL 9.1 9.2 Immature Gran % 0.0 0.0 Neutrophils % % 69.0 73.0 Band Neutrophils % % 1 1 Lymphocytes % % 22.0 12.0 Monocytes % % 5.0 8.0 Eosinophils % % 0.0 2.0 Basophils % % 0.0 0.0 Metamyelocytes % 3 3 Myelocytes % 1 Nucleated RBC % (0.0-0.3) % 1.0 H 0.0 Absolute Neutrophils (1.2-6.7) 10^3/uL 10.89 H 10.23 H Absolute Lymphocytes (1.2-3.4) 10^3/uL 3.42 H 1.66 Absolute Monocytes (0.1-0.8) 10^3/uL 0.78 1.11 H Absolute Eosinophils (0.0-0.7) 10^3/uL 0.00 0.28 Absolute Basophils (0.0-0.2) 10^3/uL 0.00 0.00 RBC Morphology Normal Normal PT (9.1-11.1) sec 19.8 H INR (0.9-1.1) 2.1 H Sodium (136-145) mmol/L Potassium (3.5-5.1) mmol/L Chloride (98-107) mmol/L Carbon Dioxide (21.0-32.0) mmol/L Anion Gap (3-11) mmol/L BUN (7-18) mg/dL Creatinine (0.55-1.02) mg/dL Est GFR (CKD-EPI 2020) (mL/min/1.73m2) Glucose (74-106) mg/dL Calcium (8.5-10.1) mg/dL Magnesium (1.8-2.4) mg/dL Total Bilirubin (0.2-1.0) mg/dL AST (15-37) U/L ALT (14-59) U/L Alkaline Phosphatase (46-116) U/L Troponin I (<or=51) ng/L 281 H* NT-Pro-B Natriuret Pep (<300) pg/mL Total Protein (6.4-8.2) g/dL Albumin (3.4-5.0) g/dL TSH (0.36-3.74) uIU/mL Free T4 (0.76-1.46) ng/dL Urine Color (Yellow) Urine Clarity (Clear) Urine pH (5-8) Ur Specific [place] (1.005-1.025) Urine Protein (Neg-Trace) mg/dL Urine Ketones (Negative) mg/dL Urine Blood (Negative) Urine Nitrite (Negative) Urine Bilirubin (Negative) Urine Urobilinogen (Up to 0.2) mg/dL Ur Leukocyte Esterase (Negative) Urine RBC (0-2) HPF Urine WBC (0-5) HPF Ur Epithelial Cells (Negative) HPF Urine Crystals (Negative) HPF Urine Bacteria (Negative) HPF Urine Casts (Negative) LPF Urine Mucus (Negative) Ur Culture Indicated? Urine Glucose (Negative) mg/dL COVID-19 Source SARS-CoV-2 (PCR) (Negative) Influenza Type A (PCR) (Negative) Influenza Type B (PCR) (Negative) RSV (PCR) (Negative) ABO/Rh Blood Type Recheck A Positive Antibody Screen Range/Units 04/02/24 14:09 WBC (4.4-10.8) 10^3/uL RBC (3.93-5.22) 10^6/uL Hgb (11.2-15.7) g/dL Hct (36.0-46.0) % MCV (80-95) fL MCH (27.0-33.0) pg MCHC (32.0-36.0) % RDW (11.7-14.6) % Plt Count (130-400) 10^3/uL MPV (8.0-11.0) fL Immature Gran % Neutrophils % % Band Neutrophils % % Lymphocytes % % Monocytes % % Eosinophils % % Basophils % % Metamyelocytes % Myelocytes % Nucleated RBC % (0.0-0.3) % Absolute Neutrophils (1.2-6.7) 10^3/uL Absolute Lymphocytes (1.2-3.4) 10^3/uL Absolute Monocytes (0.1-0.8) 10^3/uL Absolute Eosinophils (0.0-0.7) 10^3/uL Absolute Basophils (0.0-0.2) 10^3/uL RBC Morphology PT (9.1-11.1) sec INR (0.9-1.1) Sodium (136-145) mmol/L Potassium (3.5-5.1) mmol/L Chloride (98-107) mmol/L Carbon Dioxide (21.0-32.0) mmol/L Anion Gap (3-11) mmol/L BUN (7-18) mg/dL Creatinine (0.55-1.02) mg/dL Est GFR (CKD-EPI 2020) (mL/min/1.73m2) Glucose (74-106) mg/dL Calcium (8.5-10.1) mg/dL Magnesium (1.8-2.4) mg/dL Total Bilirubin (0.2-1.0) mg/dL AST (15-37) U/L ALT (14-59) U/L Alkaline Phosphatase (46-116) U/L Troponin I (<or=51) ng/L NT-Pro-B Natriuret Pep (<300) pg/mL Total Protein (6.4-8.2) g/dL Albumin (3.4-5.0) g/dL TSH (0.36-3.74) uIU/mL Free T4 (0.76-1.46) ng/dL Urine Color (Yellow) Yellow Urine Clarity (Clear) Clear Urine pH (5-8) 6.5 Ur Specific [place] (1.005-1.025) 1.015 Urine Protein (Neg-Trace) mg/dL Negative Urine Ketones (Negative) mg/dL Negative Urine Blood (Negative) Negative Urine Nitrite (Negative) Negative Urine Bilirubin (Negative) Negative Urine Urobilinogen (Up to 0.2) mg/dL 1.0 H Ur Leukocyte Esterase (Negative) Large H Urine RBC (0-2) HPF 0-2 Urine WBC (0-5) HPF 10-20 H Ur Epithelial Cells (Negative) HPF Moderate Urine Crystals (Negative) HPF Negative Urine Bacteria (Negative) HPF Few Urine Casts (Negative) LPF Negative Urine Mucus (Negative) Negative Ur Culture Indicated? No/Sq. Contamination Urine Glucose (Negative) mg/dL Negative COVID-19 Source SARS-CoV-2 (PCR) (Negative) Influenza Type A (PCR) (Negative) Influenza Type B (PCR) (Negative) RSV (PCR) (Negative) ABO/Rh Blood Type Recheck Antibody Screen Quality:SDOH Health Related Social Needs: No Data to Display Critical Care Time Critical Care Time Critical Care Time: Yes Total Critical Care Time: 30 Attestation: Upon my evaluation, this patient had a high probability of imminent or life-threatening deterioration due to acute severe GI bleeding, NSTEMI, falling hemoglobin receiving blood, required reversal of supratherapeutic INR of 10, which required my direct attention, intervention, and personal management. I have personally provided 30 minutes of critical care time exclusive of time spent on separately billable procedures. Time includes review of laboratory data, radiology results, discussion with consultants, and monitoring for potential decompensation. Interventions were performed as documented above, including monitoring of critical vital signs, ordering critical medications from bedside, and re-assessing effectiveness, repeating critical exam findings, and reviewing patients' chart. Sign Out Sign Out Data: Sign Out Comment: pending [facility] tx. gi bleed with supratherapeutic INR/reversed/ mech mitral valve with ICD. receiving 1 unit of PRBC secondary to drop in hgb from 10-8.4. Last updated by Shonda Arroyo PA at 04/02/24 15:59 Discharge Plan Disposition Patient Disposition: Transfer-Acute Inpatient Care Specific Acute Inpt Facility: [facility] Condition: Serious Discharge Details Clinical Impression: GI bleeding, Non-ST elevation NJ (NSTEMI), Supratherapeutic INR Primary Care Provider: Cristal Armenta ED Provider: Ernst Pena [place] Meds and New Rx's Prescriptions: No Action cholecalciferol (vitamin D3) 2,000 unit capsule 2,000 unit PO DAILY cetirizine [Zyrtec] 10 mg tablet 10 mg PO DAILY Qty: 90 4RF Rx Instructions: instead of Loratidine amoxicillin 500 mg tablet 2,000 mg PO ONCE Qty: 16 2RF Rx Instructions: take 1 hour before procedure atorvastatin 20 mg tablet 20 mg PO QPM Qty: 90 4RF Qvar RediHaler 40 mcg/actuation HFA aerosol breath activated 2 inh IH BID Qty: 31.8 5RF diltiazem HCl 240 mg capsule,extended release 24hr 240 mg PO QPM Qty: 90 5RF diltiazem HCl 300 mg capsule,extended release 24hr 300 mg PO QAM Qty: 90 4RF Jardiance 10 mg tablet 10 mg PO DAILY Qty: 90 4RF warfarin 5 mg tablet 10 mg PO QHS Qty: 180 4RF Rx Instructions: DIRECTED BY [facility]; BASED ON INR potassium chloride 20 mEq tablet,ER particles/crystals See Rx Instructions PO BID Qty: 270 3RF Rx Instructions: 2tabs am; 1 tab pm orally twice a day; fluticasone propionate 50 mcg/actuation spray,suspension 2 spray intranasal DAILY Qty: 47.4 5RF Rx Instructions: administer into each nostril levothyroxine 50 mcg tablet 50 mcg PO DAILY Qty: 90 6RF mirtazapine 15 mg tablet 15 mg PO QHS Qty: 90 4RF magnesium chloride [Mag 64] 64 MG tablet,delayed release (DR/EC) 2 tab PO BID Qty: 180 Rx Instructions: 128 MG BID alendronate 70 mg tablet 70 mg PO QWEEK Qty: 14 3RF (DME) blood-glucose meter [FreeStyle Precision Uzair Meter] Misc See Rx Instructions .Route Qty: 1 8RF Rx Instructions: As directed. E11.9; once daily (DME) FreeStyle Precision Uzair Strips Strip See Rx Instructions .Route Qty: 90 5RF Rx Instructions: As directed. E11.9 once daily testing (DME) lancets [FreeStyle Lancets] 28 gauge misc See Rx Instructions .ROUTE .MEDSUPPLY Qty: 100 5RF Rx Instructions: daily testing E11.9 torsemide 20 mg tablet 20 mg PO DAILY Qty: 90 5RF lorazepam 0.5 mg tablet 0.5 mg PO DAILY PRN (Reason: anxiety) Qty: 30 1RF Calcium 600 + D(3) 1 EACH tablet 1 tab PO DAILY metoprolol tartrate 25 mg tablet 25 mg PO TID Patient Comments: pt states taking 3 times daily now Discharge Data Discharge Date/Time-TO BE ENTERED AT DEPARTURE: 04/02/24 18:30
--- NOTE | 2024-04-02 16:15 | DI.CT_ITS ---
Exam(s) CT THORAX ABD/PEL CTA EXAM: CT THORAX ABD/PEL CTA CLINICAL HISTORY: GI Bleeding, profound anemia. TECHNIQUE: Imaging Protocol: Axial computed tomography images with coronal and sagittal reformatted images were created and reviewed CONTRAST MATERIAL: Intravenous: Omnipaque 350 Contrast volume:100 ml Oral: yes / no Intravenous: Omnipaque 350 Contrast volume:100 COMPARISON: US US ABDOMEN from 11/26/2023 CR XR PORTABLE CHEST AP from 04/02/2024 FINDINGS: CHEST: Tracheobronchial tree: Patent. Pulmonary parenchyma: No consolidation or dominant measurable mass. Mild scarring posterior right lo wer lobe. Pleura: No effusion or pneumothorax. Mediastinum: Within normal limits. Aorta: Thoracic portion non-dilated. Pulmonary arteries: No visible emboli. Heart: Massively enlarged the bilateral atria. Mitral valve prosthesis. No pericardial effusion. Bones: Unremarkable for age. No lytic or blastic lesions.No compression fractures. Sternal wires. Soft tissues: Pacemaker. ABDOMEN and PELVIS: Liver: Normal density. No measurable mass. Gallbladder and biliary tract: Status post cholecystectomy. Stable mild dilatation of the common h[place] e duct Pancreas: Normal density, no abnormal calcifications or inflammatory process. Spleen: Normal. Kidneys: Normal size, contour and axis. No radiodense stones. No obstructive uropathy. No suspicious masses seen. Adrenal glands: No masses seen. Aorta: Abdominal portion non-dilated. Lymph nodes: Within normal limits. Soft tissues: Unremarkable. Bladder: Unremarkable. Bowel: Small hiatal hernia. No obstruction or bowel wall thickening. Sigmoid diverticulosis. Stoo l in rectum. Little stool elsewhere. Appendix normal. No evidence of active GI bleed. Peritoneal cavity: No ascites. No focal collection. No mesenteric inflammatory response. No free ai r. Bones: Unremarkable for age. Reproductive organs: Calcified uterine fibroid. IMPRESSION: No acute abnormality in the chest, abdomen or pelvis. RADIATION DOSE DELIVERED: Total DLP Total DLP DATA REPOSITORY: All CT scans at this facility are submitted to the National Radiology Data Registry (NRDR) Dose Index Registry (DIR) with the [employer] (ACR). RADIATION OPTIMIZATION: All CT scans at this facility use at least one of these dose optimization te chniques: automated exposure control; mA and/or kV adjustment per patient size (includes targeted exa ms where dose is matched to clinical indication); or iterative reconstruction.
[2024-04-02] MEDS: Normal Saline - Diluent 50 ML VIAL IJ (16:37)
[2024-04-02] MEDS: Omnipaque 350 MG/ML 100 ML BTL IJ (16:38)
[2024-04-02] MEDS: Normal Saline 500 ML IV (17:30)
[2024-04-02 17:47] LABS: HCT 23.8 % (36.0-46.0); HGB 7.8 g/dL (11.2-15.7)
[2024-04-02] MEDS: Tranexamic Acid 1,000 MG/10 ML VIAL 1000 MG IVP (18:12)
--- NOTE | 2024-04-02 18:30 | NUR.NOTE ---
[facility] transported patient with blood still running with 56.2 mL VTBI still.
--- NOTE | 2024-04-03 08:08 | NUR.NOTE ---
Access chart to reconcile EKG orders and EKG's in [facility]. Duplicate order cancelled. Nursing Note:
== END 2024-04-02 18:30 | disposition short-term general hospital (02) ==
PROVIDERS: Physician Assistant; Emergency Provider Physician Assistant; PCP Family Medicine
DX: I21.4 Non-ST elevation (NSTEMI) myocardial infarction (principal); K92.2 Gastrointestinal hemorrhage, unspecified; R97.1 Elevated cancer antigen 125 [CA 125]; Z95.0 Presence of cardiac pacemaker; Z95.5 Presence of coronary angioplasty implant and graft; Z79.899 Other long term (current) drug therapy
CPT/HCPCS: 00123; 36415; 71275; 80053; 82962; 86850; 86900; 86901; 86920; 87637; 93005; 96361; 96374; 96375; 96376; 99285; 71045; 74174; 81003; 81015; 83735; 83880; 84439; 84443; 84484; 85014; 85018; 85025; 85610; 93010; J0780; J2060; J2470; J3430; J3490; P9016; P9059

== ENCOUNTER 2024-04-07 14:20 | Inpatient (IN) | payer OTHER, SELFPAY ==
--- NOTE | 2024-04-07 12:45 | W.PC.ACHO ---
Registration Status: Primary Language: Preferred Language: Medical / Surgical History (Last Reviewed 03/24/24 @ 10:45 by Mariana Gonzalez NP) Urinary tract infection Chronic anticoagulation (Last Reviewed 03/24/24 @ 10:45 by Mariana Gonzalez NP) Mitral valve replacement (03/26/16) HERNIATED DISC Cholecystectomy CARDIAC Allergies sertraline Adverse Reaction (Severe, Unverified 04/02/24 09:33) PALPITATIONS lansoprazole (From Prevacid) Adverse Reaction (Intermediate, Verified 04/02/24 09:33) DIARRHEA amiodarone Adverse Reaction (Unknown, Verified 04/02/24 09:33) lethargic per pt. DOG DANDER Allergy (Mild, Uncoded 04/02/24 09:33) RHINITIS MOLDS AND SMUTS Allergy (Mild, Uncoded 04/02/24 09:33) RHINITIS v v v v v v v v v Sending and/or Receiving Nurses: Please use comment section below to note any information pertinent to the patient hand-off not included above. Information / Comments: 64 Y/o F, Full codde, transfer from [facility] back after EGD,for upper GI bleed, pt noted to have esophageal lesion but was no longer bleeding. Pt coming back with Heparin drip noted to be running at 100 units per hour, (16ml/hr), pt has hx of myopathy, mitral valve replacement, A flib, V paces, and hypothyroidism, pt has been in and out of A fib and A flutter while on tele at [facility], tele was dc yesterday. pt noted to have numbess and some edema to left foot due to sciatica, LMB 04/06/2024, continent of bowel and bladder, uses walker, stand by assist for generalized weakness, 18G to RAC and unknown rona IV to left arm. Hgb 7.9, recieved blood yesterday for hcg of 7.1. current INR is 1.5 and UFH .45. Trazadone gave pt nightmares. Report received from:Melida PARTIDA at [facility] at [id number]
[2024-04-07 14:44] VITALS: BP 102/50; PULSE 86; RESP 16; TEMP 36.2; O2SAT 98
[2024-04-07] MEDS: Heparin in 0.45% NaCl 25,000 UNIT/250 ML BAG 8 UNIT IVINF (15:03)
--- NOTE | 2024-04-07 17:24 | HPE_ITS ---
Date of service: 04/07/24 Time of Service: 17:24 Assessment and Plan Assessment and plan (1) Upper GI bleeding: Status: Acute Assessment and plan: No further bleeding, has been hemodynamically stable Scoped by GI at [facility] Recommendations are for twice daily PPI to complete a 8-week course of 20 mg twice daily Tolerating a regular diet Tolerating anticoagulation Monitor closely for acute bleeding, follow labs closely (2) H/O mitral valve replacement: Status: Acute Assessment and plan: Will be fully anticoagulated on warfarin for INR goal of 2.5-3.5 This morning's INR 1.6 had received 10 mg of warfarin last night scheduled to receive 7.5 tonight will continue daily INRs until stable Heparin to bridge Coumadin. Follow PTT and adjust per protocol (3) Atrial fibrillation: Status: Acute Assessment and plan: Rate controlled on diltiazem and metoprolol Fully anticoagulated for history of MVR (4) ICD (implantable cardioverter-defibrillator) in place: Status: Chronic (5) Lumbago with sciatica, left side: Status: Acute Assessment and plan: Recommendations are to consider Lyrica, previously she did not tolerate gabapentin Labs including magnesium phosphorus B1 B12 B6 vitamin D all within normal limits No imaging was completed with recommendations as outpatient follow-up (6) Depressive disorder: Status: Acute Assessment and plan: Stable continue mirtazapine scheduled at bedtime and Ativan as needed (7) Hyperlipemia: Status: Acute Assessment and plan: Continue atorvastatin (8) Hypothyroidism: Status: Acute Assessment and plan: Continue levothyroxine 50 mcg daily Her TSH on April 02 was 29.46 and down to 12 when rechecked at [facility] Should recheck in 2 to 4 weeks History of Present Illness Narrative: This is a 64-year-old female patient past medical history significant for mitral valve replacement fully anticoagulated on Coumadin for INR goal of 2.5-3.5 who presented here to the emergency department on April 02 for weakness and dark vomitus. She had just completed a course of prednisone that she was taking for back pain with herniated lumbar disc. She was also complaining of significant dyspnea on exertion. Her workup in the emergency department was concerning for acute GI bleed with supratherapeutic INR at 10. Stools were heme positive. She did have an episode of hemoptysis. The ED consulted [facility] her INR was reversed with fresh frozen plasma and vitamin K. She was also found to have elevated troponin thought to be a type II non-STEMI. She received 1 unit of packed red blood cells and was transferred to [facility] for further evaluation. 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 She is to take PPI twice daily for 8 weeks her diet has been advanced and she has been tolerating resumption of her anticoagulation with heparin bridging to warfarin for INR goal of 2.5-3. She did receive 1 unit of packed red blood cells on April 06 and has been stable since. Her chronic atrial fibrillation has been well managed on diltiazem and metoprolol. There was a request for a lateral transfer to continue bridging heparin to Coumadin she was transported here by ground EMS to be admitted to the hospitalist service. She has been eating and drinking bowels and bladder functioning and has remained hemodynamically stable. She is voicing no complaints Review of Systems All systems reviewed & are unremarkable except as noted in HPI and below PFSH All Active Problems (Updated 04/07/24 @ 17:38 by Evelina Cowan NP) Hyperlipemia (Acute) Upper GI bleeding (Acute) Supratherapeutic INR (Acute) Non-ST elevation [place] (NSTEMI) (Acute) GI bleeding (Chronic) Lumbago with sciatica, left side (Acute) Thyroid disease (Acute) Anxiety (Chronic) Glycosuria (Acute) Dizziness (Acute) Fatigue (Acute) Elevated alkaline phosphatase level (Acute) Screening for HIV (human immunodeficiency virus) (Acute) Encounter for hepatitis C screening test for low risk patient (Acute) Elevated serum creatinine (Acute) Annual physical exam (Acute) Encounter for screening for osteoporosis (Acute) Vitamin D deficiency (Acute) Encounter for annual physical exam (Acute) Arthralgia (Acute) Myalgia (Acute) Depressive disorder (Acute) Family history of hypertrophic cardiomyopathy (Acute) Obesity (Acute) Annual physical exam (Acute 09/09/16) Anticoagulated on warfarin (Acute) handled by [facility] Asthma (Acute 10/21/12) allergies Atrial fibrillation (Acute 11/19/12) paroxysmal; S/P ablation 11/24 04/28; Coumadin [place] Cardiomyopathy (Acute) hypertrophic cardiomyopathy; + fam hx HCM w/ sudden ; yearly echo at [facility] Gastroesophageal reflux disease (Acute) H/O mitral valve replacement (Acute 09/09/16) Hypothyroidism (Acute 11/19/12) ICD (implantable cardioverter-defibrillator) in place (Chronic) [facility]-placed 2005; [facility]-replaced 2009 and 02/04 Lumbago with sciatica, left side (Acute) S/P repair 2 herniated discs; 06/25 recurrent L sciatica Rosacea (Acute) Vitamin D deficiency (Acute 09/22/14) Medical History Urinary tract infection Chronic anticoagulation Surgical History Mitral valve replacement (03/26/16) [facility] HERNIATED DISC ;[facility] Cholecystectomy 05/01; [facility] CARDIAC 11/2002 CARDIAC ABLATION-[facility] 12/2005 DEFIB IMPLANT-[facility] 03/2006 CARDIAC ABLATION-[facility] 10/2006 CARDIAC ABLATION- [facility] 08/2009 DEFIB IMPLANT BATTERY REPLACEMENT-[facility] Family History Mother Hyperlipidemia Breast cancer Father , AGE 62 Alcohol abuse Heart disease Sister Heart disease Stroke Sister Allergy to soy Paternal Grandfather Heart disease Alcohol abuse Maternal Grandfather No problems noted. Paternal Grandmother No problems noted. Paternal Grandmother No problems noted. Social History Smoking/Tobacco Use Status: Never Second Hand Exposure: Yes Smoking risk assessment performed?: Yes Alcohol Intake: current Alcohol type: beer and wine Drug use: Never Substance use type: does not use Adopted: No Caregiver/Support person: No Foster care: No Household members: spouse Housing: house Number of Children: 0 number of grandchildren: 0 Communication Needs: None Education Level: high school Do you need help understanding health information?: Never current occupation: retired Pets and animals: No Sexually active: Yes Do you think of yourself as: straight/heterosexual Current gender identity: female What is your relationship status?: How often do you talk on the phone with friends or family?: three or more times per week How often do you get together with friends or relatives?: once per week How often do you attend spiritism or methodist services?: decline to answer Do you belong to any clubs or organized social groups?: no Panel score (0-1 are the most socially isolated patients): 2 What type of physical activity do you participate in: walking and other Details: treadmill, stationary bike Duration: 15-30 minutes/day Frequency: 3-4 times per week Bianca/Yarsani: Non yazdanism Special bianca needs: No Agree to transfusion: Yes Seatbelt use: always Helmet use: Yes Helmet use: always Drive intox or ride w/intox delivery route driver: No Working smoke detector in home: Yes Carbon monox detector in home: Yes Firearms in home: Yes Firearms unloaded and locked: Yes Do you feel safe at home: Yes Do you feel safe in your relationship?: Yes Victim of physical abuse: No Victim of emotional abuse: No Victim of sexual abuse: No Would you like helpful sources: No Meds Allergies and Home Medications Allergies Allergy/AdvReac Type Severity Reaction Status Date / Time sertraline AdvReac Severe PALPITATION Unverified 04/02/24 09:33 S lansoprazole (From Prevacid) AdvReac Intermediate DIARRHEA Verified 04/02/24 09:33 amiodarone AdvReac Unknown lethargic Verified 04/02/24 09:33 per pt. DOG DANDER Allergy Mild RHINITIS Uncoded 04/02/24 09:33 MOLDS AND SMUTS Allergy Mild RHINITIS Uncoded 04/02/24 09:33 Home Medications ?Medication ?Instructions ?Recorded ?Confirmed ?Type magnesium chloride 64 mg 2 tab PO BID #180 tab-caps 11/07/12 04/07/24 History (magnesium chloride) tablet,delayed release (Mag 64) calcium carbonate-vitamin D3 600 1 tab PO DAILY 05/31/13 04/07/24 History mg-125 unit tablet (Calcium) cetirizine 10 mg tablet (Zyrtec) 10 mg PO DAILY #90 tab-caps 09/22/18 04/07/24 Rx cholecalciferol (vitamin D3) 50 2,000 unit PO DAILY 09/22/18 04/07/24 History mcg (2,000 unit) capsule fluticasone propionate 50 2 spray intranasal DAILY #47.4 04/08/22 04/07/24 Rx mcg/actuation nasal grams spray,suspension atorvastatin 20 mg tablet 20 mg PO QPM #90 tabs 05/05/23 04/07/24 Rx beclomethasone dipropionate 40 2 inh inhalation BID #31.8 grams 05/05/23 04/02/24 Rx mcg/actuation HFA breath activated aerosol (Qvar RediHaler) diltiazem HCl 240 mg 240 mg PO QPM #90 caps 05/05/23 04/07/24 Rx capsule,extended release 24 hr diltiazem HCl 300 mg 300 mg PO QAM #90 caps 05/05/23 04/07/24 Rx capsule,extended release 24 hr warfarin 5 mg tablet 10 mg (2 x 5 mg) PO QHS #180 tabs 05/05/23 04/07/24 Rx potassium chloride 20 mEq See Rx Instructions PO BID #270 05/06/23 04/07/24 Rx tablet,extended release(part/cryst) tab-caps blood sugar diagnostic (FreeStyle #90 ea 12/02/23 04/02/24 Rx Precision Uzair Strips) blood-glucose meter (FreeStyle #1 ea 12/02/23 04/02/24 Rx Precision Uzair Meter) lancets 28 gauge (FreeStyle #100 ea 12/05/23 04/02/24 Rx Lancets) torsemide 20 mg tablet 20 mg PO DAILY #90 tab-caps 01/28/24 04/07/24 Rx lorazepam 0.5 mg tablet 0.5 mg PO DAILY PRN anxiety #30 02/05/24 04/07/24 Rx tabs levothyroxine 50 mcg tablet 50 mcg PO DAILY #90 tabs 03/18/24 04/07/24 Rx mirtazapine 15 mg tablet 15 mg PO QHS #90 tabs 03/18/24 04/07/24 Rx metoprolol tartrate 25 mg tablet 25 mg PO TID 04/02/24 04/07/24 History Exam Narrative Exam Narrative: Well-appearing female of stated age in no acute distress head is atraumatic oral mucosas moist eyes nonicteric noninjected neck supple no JVD cardiovascular regular rhythm, rate controlled, no murmurs, respirations even unlabored abdomen soft nontender extremities are without edema neurologic she is awake alert oriented no focal deficits psychiatric normal mood and affect Results Labs Labs: Laboratory Results - last 24 hr 04/07/24 14:50 APTT 46.0 H Last Vital Signs Temp 36.2 C L 04/07/24 14:44 Pulse 86 04/07/24 14:44 Resp 16 04/07/24 14:44 BP 102/50 L 04/07/24 14:44 Pulse Ox 98 04/07/24 14:44 Time Spent Time spent with Patient: >75 minutes Time was spent: preparing to see the patient(eg.review tests), obtaining and/or reviewing [facility], ordering medications,tests, procedures, indepentently interpreting results and counseling the patient
[2024-04-07 20:54] VITALS: BP 115/71; PULSE 80; RESP 14; TEMP 36.4; O2SAT 94
[2024-04-07] MEDS: Magnesium Chloride 64 MG TABCR 128 MG PO (21:11)
[2024-04-07] MEDS: dilTIAZem CD 120 MG CAPCR 240 MG PO (21:11)
[2024-04-07] MEDS: Mirtazapine 15 MG TAB PO (21:12)
[2024-04-07] MEDS: Atorvastatin 20 MG TAB PO (21:12)
[2024-04-07] MEDS: Potassium Chloride 20 MEQ TABCR PO (21:12)
[2024-04-07] MEDS: Normal Saline Flush 10 ML SYR IVP (21:13)
[2024-04-07] MEDS: Warfarin 5 MG TAB 7.5 MG PO (21:14)
[2024-04-07] MEDS: Acetaminophen 325 MG TAB 650 MG PO (21:34)
[2024-04-07] MEDS: Pantoprazole 20 MG TABCR PO (22:42)
[2024-04-07 23:28] LABS: PTT Activated > 155.0 sec (23.6-32.8)
[2024-04-08] MEDS: Acetaminophen 325 MG TAB 650 MG PO (03:53)
[2024-04-08] MEDS: Levothyroxine 50 MCG TAB PO (05:35)
[2024-04-08 06:59] LABS: Abs Immature Grans 0.21 10^3/uL (0.0-0.06); Absolute Basophil Count 0.03 10^3/uL (0.0-0.2); Absolute Eosinophil Count 0.28 10^3/uL (0.0-0.7); Absolute Lymphocyte Count 1.06 10^3/uL (1.2-3.4); Absolute Monocyte Count 1.02 10^3/uL (0.1-0.8); Absolute Neutrophil Count 6.67 10^3/uL (1.2-6.7); Basophils % 0.3 %; HCT 25.3 % (36.0-46.0); HGB 8.5 g/dL (11.2-15.7); Immature Grans % 2.3 %; Lymphocytes % 11.4 %; MCH 31.8 pg (27.0-33.0); MCHC 33.6 % (32.0-36.0); MCV 95 fL (80-95); MPV 9.7 fL (8.0-11.0); Platelet Count 208 10^3/uL (130-400); RBC 2.67 10^6/uL (3.93-5.22); RDW 17.2 % (11.7-14.6); WBC 9.27 10^3/uL (4.4-10.8)
[2024-04-08 07:05] LABS: Prothrombin Time 18.9 sec (9.1-11.1)
[2024-04-08 07:08] LABS: PTT Activated 71.3 sec (23.6-32.8)
[2024-04-08 07:10] LABS: Anion Gap 10.4 mmol/L (3-11); BUN 9 mg/dL (7-18); CO2 22.6 mmol/L (21.0-32.0); CREATININE 0.9 mg/dL (0.55-1.02); Calcium 8.8 mg/dL (8.5-10.1); Chloride 107 mmol/L (98-107); Estimated GFR 71.39 (mL/min/1.73m2); Glucose 108 mg/dL (74-106); Potassium 3.9 mmol/L (3.5-5.1); Sodium 140 mmol/L (136-145)
[2024-04-08 07:36] LABS: Anisocytosis 2+; Diff Comment RBC Morph Reviewed; Polychromasia Present
[2024-04-08 07:39] LABS: Poikilocytes 1+
[2024-04-08 08:25] VITALS: BP 109/69; PULSE 81; RESP 18; TEMP 36.6; O2SAT 98
--- NOTE | 2024-04-08 09:13 | IN_ITS ---
PT Notes Visit Reasons: Upper gi bleed, s/p mitral valve replacement Physical Therapy Initial Evaluation Date: 04/08/2024 Referring Doctor: Evelina Cowan PT Orders: PT CONSULT: PT Evaluation and treat Precautions: Standard, IV access RUE, Patient Profile/Admitting Diagnosis: Mariela is a 64yo female presented to the ED on April 02 for weakness and dark vomitus. She had just completed a course of prednisone that she was taking for back pain with herniated lumbar disc. She was also complaining of significant dyspnea on exertion. Her workup in the emergency department was concerning for acute GI bleed with supratherapeutic INR at 10. Stools were heme positive. She did have an episode of hemoptysis. The ED consulted [facility] her INR was reversed with fresh frozen plasma and vitamin K. She was also found to have elevated troponin thought to be a type II non-STEMI. She received 1 unit of packed red blood cells and was transferred to [facility] for further evaluation. At 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 She is to take PPI twice daily for 8 weeks her diet has been advanced and she has been tolerating resumption of her anticoagulation with heparin bridging to warfarin for INR goal of 2.5-3. She did receive 1 unit of packed red blood cells on April 06 and has been stable since. She was transferred back to [facility] for continued medical management. PMHX: Hyperlipemia (Acute) Upper GI bleeding (Acute) Supratherapeutic INR (Acute) Non-ST elevation [place] (NSTEMI) (Acute) GI bleeding (Chronic) Lumbago with sciatica, left side (Acute) Thyroid disease (Acute) Anxiety (Chronic) Glycosuria (Acute) Dizziness (Acute) Fatigue (Acute) Elevated alkaline phosphatase level (Acute) Screening for HIV (human immunodeficiency virus) (Acute) Encounter for hepatitis C screening test for low risk patient (Acute) Elevated serum creatinine (Acute) Annual physical exam (Acute) Encounter for screening for osteoporosis (Acute) Vitamin D deficiency (Acute) Encounter for annual physical exam (Acute) Arthralgia (Acute) Myalgia (Acute) Depressive disorder (Acute) Family history of hypertrophic cardiomyopathy (Acute) Obesity (Acute) Annual physical exam (Acute 09/09/16) Anticoagulated on warfarin (Acute) handled by [facility] Asthma (Acute 10/21/12) allergies Atrial fibrillation (Acute 11/19/12) paroxysmal; S/P ablation 11/24 04/28; Coumadin [place] Cardiomyopathy (Acute) hypertrophic cardiomyopathy; + fam hx HCM w/ sudden ; yearly echo at [facility] Gastroesophageal reflux disease (Acute) H/O mitral valve replacement (Acute 09/09/16) Hypothyroidism (Acute 11/19/12) ICD (implantable cardioverter-defibrillator) in place (Chronic) [facility]-placed 2005; [facility]-replaced 2009 and 02/04 Lumbago with sciatica, left side (Acute) S/P repair 2 herniated discs; 06/25 recurrent L sciatica Rosacea (Acute) Vitamin D deficiency (Acute 09/22/14) Medical History Urinary tract infection Chronic anticoagulation Surgical History Mitral valve replacement (03/26/16) [facility] A[facility] 12/2005 DEFIB IMPLANT-[facility] 03/2006 CARDIAC ABLATION-[facility] 10/2006 CARDIAC ABLATION- [facility] 08/2009 DEFIB IMPLANT BATTERY REPLACEMENT-[facility] Social History/Home Situation: Pt resides in [facility] home with 2 platform MARGARITA without rail. Pt has 13 steps with Left rail ascending to get to her bedroom and bathroom. Pt Independent ambulation without device. Pt independent for ADLs, meal prep, shopping, house hold management, medication management, iADLs drives Equipment Owned/DME: has FWW at home ( 's from past knee surgery) Subjective: Patient reports some anxiousness with new activities which increase tremor in right upper extremity. She reports she is waiting to see a neurologist for further assessment of this tremor. She denies pain. Objective: General Observation: Awake semireclined in bed eager to participate in therapy. IV infusing Mental Status: Alert and oriented x 4 Pain: Denies ROM: Bilateral upper and lower extremities : Within normal limits Strength: [] Right Upper Extremity: 4/5 intention tremor noted Left Upper Extremity: 4/5 Right Lower Extremity: Hip abduction 3 /5, hip extension 3 /5, hip flexion 3/5, knee extension 3+/5, knee flexion 3/5, ankle dorsiflexion 3+/5 plantarflexion 3 -/5 Left Lower Extremity: Hip abduction 3 -/5, hip extension 3 /5, hip flexion 3/5, knee extension 3+/5, knee flexion 3/5, ankle dorsiflexion 3/5 plantarflexion 3 - /5 Sensation: Intact to light pressure and deep touch except left foot diminished. Bed Mobility/Transfers: Supine to sit independent Sit to stand supervision with cues for hand placement Stand to sit supervision with cues for hand placement Bed to chair supervision with FWW Gait: SBA with FWW 100 feet with 2 standing rest for pacing. Patient demonstrates reciprocal pattern decreased chey Balance: [] Static Sitting: Normal Dynamic Sitting: Normal Static Standing: Good Dynamic Standing: Good- 4 STAGE BALANCE TEST: Feet together 10 seconds 1/2 Stance 10 seconds Tandem stance 5 seconds Single leg stance left 3 seconds, right 5 seconds Special Tests: [] Mobility Limitations Standardized Measure [] [facility] AM-PAC 6 clicks Basic Mobility Inpatient Short Form: [] Raw Score: 23 CMS Score: 11.20% Informed Consent/Education: Patient instructed in purpose of PT consult, role of PT, goals, plan of treatment. Assessment: Patient presents with clinical signs and symptoms consistent with current/admitting diagnoses that have resulted to mobility limitations, gait instability, generalized weakness, and impairment of motor control as demonstrated by the following impairment level findings: 1. Decreased strength BUE and BLE major muscle groups 2. Impaired standing balance 3. Impaired functional activity tolerance Impairments are contributing to the following functional limitations: 1. Inability to safely ambulate without assistive device 2. Increase completion time for mobility ADL performance 3. Increased fall risk 4. Decrease ability to safely ascend and descend stairs Patient is assessed as a moderate complexity based on the following: History: 64-year-old female with impairment level findings, functional limitations, and past medical history as indicated above Examination: Demonstrable impairment in strength, balance, and mobility level with underlying impairments and functional limitations as documented above Presentation: Evolving Decision Making: Moderate Goals: 1. Independent transfers with least restrictive device 2. Independent ambulation 300 feet with least restrictive device demonstrating self pacing and energy conservation 3. Supervision stairs with rail to safely get to bedroom within the home 4. Independent with home exercise program Plan of Care/Treatment Plan: Pt would benefit from skilled PT 1-2 times per day for global strengthening, transfers, ambulation, pain management and balance facilitation DISCHARGE RECOMMENDATIONS: Home with outpatient PT versus cardiac rehab program TREATMENT CODE/TIME: 37294 x 1 unit/[id number] Thank you for the opportunity to participate in the care of this patient. Please sign an return this page within 30 days if you agree with the above POC. Thank you! Physician Signature Date [facility]
[2024-04-08] MEDS: Cetirizine 10 MG TAB PO (09:25)
[2024-04-08] MEDS: Cholecalciferol (Vitamin D3) 1,000 UNIT TAB 2000 UNITS PO (09:25)
[2024-04-08] MEDS: Magnesium Chloride 64 MG TABCR 128 MG PO ×2 (09:25→19:55)
[2024-04-08] MEDS: Calcium 600mg/Vit D 200U TAB 1 TAB PO (09:25)
[2024-04-08] MEDS: Torsemide 20 MG TAB PO (09:26)
[2024-04-08] MEDS: Fluticasone NASAL SPRAY 16 GM BTL NS (09:26)
[2024-04-08] MEDS: Potassium Chloride 20 MEQ TABCR 40 MEQ PO (09:26)
[2024-04-08] MEDS: dilTIAZem CD 300 MG CAPCR PO (09:26)
[2024-04-08] MEDS: Normal Saline Flush 10 ML SYR IVP ×2 (09:27→09:28)
--- NOTE | 2024-04-08 09:34 | PGE_ITS ---
Date of Service Date of service: 04/08/24 Time of Service: 09:38 Assessment and Plan Assessment and plan (1) Upper GI bleeding: Status: Acute Assessment and plan: Scoped by GI at [facility] Recommendations to continue continue a twice daily course of PPI to complete a 8-week at 20 mg twice daily Tolerating a enteral intake Tolerating anticoagulation/ bridging H&H 8.5 & 25- stable No further bleeding, vital signs remain stable CBC in AM (2) H/O mitral valve replacement: Status: Acute Assessment and plan: Goal: To be fully anticoagulated on warfarin for INR goal of 2.5-3.5 This morning's INR 2.0 had received 7.5 mg of warfarin last night scheduled to receive 7.5 mg tonight with addtional 1 mg will continue daily INRs until stable -Usually take 7.5 mg daily except for Mondays where the dose is 10 mg Continue Heparinas per protocal to bridge Coumadin. PTT as per protocal Consider stopping drip after 24 hours at therapeutic range (3) Atrial fibrillation: Status: Acute Assessment and plan: Rate controlled Continue diltiazem and metoprolol Fully anticoagulated for history of MVR and as in point 2 (4) ICD (implantable cardioverter-defibrillator) in place: Status: Chronic Assessment and plan: Will continue to monitor (5) Lumbago with sciatica, left side: Status: Acute Assessment and plan: Gabapentin reported as not effective for patient. Will try alternative recommended drug Pregabalin at 50 mg TID then transition to the equivalent extended release dose of 165 mg orally daily once therapy is deemed effective Labs including magnesium phosphorus B1 B12 B6 vitamin D all within normal limits No imaging was completed acutely with recommendations as outpatient follow-up (6) Depressive disorder: Status: Acute Assessment and plan: Continue home dose mirtazapine scheduled at bedtime and Ativan as needed (7) Hyperlipemia: Status: Acute Assessment and plan: Continue atorvastatin (8) Hypothyroidism: Status: Acute Assessment and plan: Will continue levothyroxine 50 mcg PO daily TSH on April 02 was 29.46 with T4 at 0.96 and reported down to 12 when rechecked at [facility] Outpatient f/u recommendation to be rechecked in 2 to 4 weeks as per PCP Discussed with Dr. Adame Subjective Subjective Patient reports: no new complaints, feels better, tolerating liquids well, tolerating a regular diet, voiding w/o difficulty and flatus; denies diarrhea, nausea, vomiting or shortness of breath Exam Narrative Exam Narrative: HENMT: Facial structures with normal appearance Eyes: Well aligned Neck: Normal ROM, no meningeal signs Neuro:alert and oriented to self, person, place, time and situation. No neurological focal deficit Resp:Unlabored breathing, clear lung bilaterally Cardio: regular rhythm, S1, S2, no murmur, capillary refill<3 sec., bilateral radial and dorsalis pedis pulses are positive, palpable GI: Abdomen is not distended, soft and non tender, bowel sounds are present Integumentary:Bruising to left wrist-forearm area d/t IV insertion on arrival Extremities: strength 5/5 to bilateral lower and upper extremities Psych: RASS 0, congruent mood and normal affect. Objective Last Vital Signs Temp 36.6 C 04/08/24 08:25 Pulse 81 04/08/24 08:25 Resp 18 04/08/24 08:25 BP 109/69 04/08/24 08:25 Pulse Ox 98 04/08/24 08:25 Laboratory Results - last 24 hr 04/07/24 04/07/24 04/07/24 14:50 21:35 22:47 WBC RBC Hgb Hct MCV MCH MCHC RDW Plt Count MPV Immature Gran % Neutrophils % Lymphocytes % Monocytes % Eosinophils % Basophils % Nucleated RBC % Absolute Neutrophils Absolute Lymphocytes Absolute Monocytes Absolute Eosinophils Absolute Basophils RBC Morphology Polychromasia Poikilocytosis Anisocytosis PT INR APTT 46.0 H Cancelled > 155.0 H* Sodium Potassium Chloride Carbon Dioxide Anion Gap BUN Creatinine Est GFR (CKD-EPI 2020) Glucose Calcium 04/08/24 06:30 WBC 9.27 RBC 2.67 L Hgb 8.5 L Hct 25.3 L MCV 95 MCH 31.8 MCHC 33.6 RDW 17.2 H Plt Count 208 MPV 9.7 Immature Gran % 2.3 Neutrophils % 72.0 Lymphocytes % 11.4 Monocytes % 11.0 Eosinophils % 3.0 Basophils % 0.3 Nucleated RBC % 0.0 Absolute Neutrophils 6.67 Absolute Lymphocytes 1.06 L Absolute Monocytes 1.02 H Absolute Eosinophils 0.28 Absolute Basophils 0.03 RBC Morphology See Below Polychromasia Present Poikilocytosis 1+ Anisocytosis 2+ PT 18.9 H INR 2.0 H APTT 71.3 H Sodium 140 Potassium 3.9 Chloride 107 Carbon Dioxide 22.6 Anion Gap 10.4 BUN 9 Creatinine 0.9 Est GFR (CKD-EPI 2020) 71.39 Glucose 108 H Calcium 8.8 Time Spent with Patient Time Spent with Patient: >50 minutes Time was spent: preparing to see the patient(eg.review tests), obtaining and/or reviewing separately otained hiistory, ordering medications,tests, procedures, referring, communicating with other health managed care manager, indepentently interpreting results, counseling the patient and care coordination
--- NOTE | 2024-04-08 11:45 | PHA.REVIEW2 ---
Pharmacy Admission Review Admission Clinical Review Admission Pharmacy Review: Hyperlipemia (Acute) Upper GI bleeding (Acute) Depressive disorder (Acute) Atrial fibrillation (Acute 11/19/12) H/O mitral valve replacement (Acute 09/09/16) Hypothyroidism (Acute 11/19/12) Lumbago with sciatica, left side (Acute) sertraline Adverse Reaction (Severe, Unverified 04/02/24 09:33) PALPITATIONS lansoprazole (From Prevacid) Adverse Reaction (Intermediate, Verified 04/02/24 09:33) DIARRHEA amiodarone Adverse Reaction (Unknown, Verified 04/02/24 09:33) lethargic per pt. DOG DANDER Allergy (Mild, Uncoded 04/02/24 09:33) RHINITIS MOLDS AND SMUTS Allergy (Mild, Uncoded 04/02/24 09:33) RHINITIS Resuscitation Status Full Code Height 5 ft 5 in Weight 90.718 kg Pharmacy Admission Review Renal Dosing Renal Dosing: BUN 9 mg/dL (7-18) 04/08/24 06:30 Creatinine 0.9 mg/dL (0.55-1.02) 04/08/24 06:30 Medications needing adjustments: Reviewed (CrCl 63.24 mL/min) List of meds needing interventions: Current medications are okay Anticoagulation Anticoagulation: Hgb 8.5 g/dL (11.2-15.7) L 04/08/24 06:30 Hct 25.3 % (36.0-46.0) L 04/08/24 06:30 Plt Count 208 10^3/uL (130-400) 04/08/24 06:30 INR 2.0 (0.9-1.1) H 04/08/24 06:30 Creatinine 0.9 mg/dL (0.55-1.02) 04/08/24 06:30 DVT Prophylaxis: Reviewed (INR 2 today, goal 2.5-3.5 (mitral valve replacement) - provider plans on giving 1mg in addition to 7.5mg order tonight) Medications: Warfarin (7.5mg - bridging with heparin until therapeutic) Therapeutic Anticoagulation: Reviewed (Last aPTT was 71.3, next aPTT scheduled for 1230) Medications: Heparin (700 units/hr) Relevant Labs Relevant Labs: Sodium 140 mmol/L (136-145) 04/08/24 06:30 Potassium 3.9 mmol/L (3.5-5.1) 04/08/24 06:30 Chloride 107 mmol/L (98-107) 04/08/24 06:30 Electrolytes, C-Reactive P, ESR: Reviewed Cardiac Review BP, HR, EF%: Reviewed (HR and BP WNL) List meds needing interventions: Has order for diltiazem 300mg daily and 240mg at night, and metoprolol 25mg TID. Per nursing patient has been refusing the metoprolol, says she takes it at home as needed for anxiety. Provider is aware of this, order currently still scheduled. QTc Review QTc: Reviewed (548 from 04/02/24) IV to PO Switch IV Medications: Reviewed (heparin infusion) Home Meds Home Med List reviewed: Intervened Relevent Home Meds Not ordered & why?: Changed Qvar to patients own order and called nursing. Inhaler was brought in from home, checked by pharmacy, labeled and sent back up to floor. Current Meds Current Medication Order Review: Intervened Comments: Patient requesting Lyrica for pain - stated that gabapentin did not work for her. No orders put in yet. Changed pantoprazole timing from 0830 to 0730 per pharmacy protocol Changed levothyroxine timing from 0830 to 0600 per pharmacy protocol Added 2nd PRN to lorazepam order per pharmacy protocol
[2024-04-08 13:19] LABS: PTT Activated 75.9 sec (23.6-32.8)
[2024-04-08] MEDS: Pregabalin 50 MG CAP PO (14:31)
[2024-04-08 15:44] VITALS: BP 93/80; PULSE 81; RESP 18; TEMP 36.8; O2SAT 99
[2024-04-08 15:45] VITALS: BP 111/66
--- NOTE | 2024-04-08 15:53 | PT.INTREAT ---
PT Notes Visit Reasons: Upper gi bleed, s/p mitral valve replacement Inpatient Physical Therapy Treatment Note [facility] Date: [] PRECAUTIONS:[] SUBJECTIVE: [] OBJECTIVE: []? PAIN: [] VITALS: ? Pre-Treatment: [] ? Post-Treatment: Transfers: Sit to/from stand: Without FWW independent; with FWW requires supervision with cues for safe hand placement Surface to surface transfers without FWW supervision Ambulation: 75 feet x 2 with FWW with 2 standing rest for pacing per 75 feet CGA. Patient demonstrates reciprocal pattern intermittent tremor noted right upper extremity. Stairs: Two 6 inch steps with bilateral rails step to pattern CGA; three 4 inch steps with bilateral rails step to pattern CGA : ASSESSMENT: Patient demonstrates increased ability during afternoon session as compared to initial evaluation in the a.m. patient noted with less weightbearing through upper extremities during ambulation and improved stability for sit to stand without assistive device. Patient continues to demonstrate impaired activity tolerance requiring standing rest during ambulation patient would benefit from continued skilled PT for training on pacing breath control and energy conservation to improve functional mobility in anticipation of discharge to home PLAN: Pt would benefit from skilled PT 1-2 times per day for global strengthening, transfers, ambulation, pain management and balance facilitation TREATMENT CODE/TIME: 81265 x 11 minutes for 1 unit, 34995 x 13 minutes for 1 unit/[id number] DISCHARGE RECOMMENDATION: Home with outpatient PT versus cardiac rehab program
--- NOTE | 2024-04-08 16:28 | INITIAL_ITS ---
Date of service: 04/08/24 Time of Service: 16:28 Care Management Initial Assmt Initial Assessment Reason for Hospitalization: GI Bleed Functional Status/Living Situation Patient Presentation: Tash was sitting in a recliner when CM met with her. She is pleasant and easily engages in conversation. Tash states that she's felt unwell and weak for the last 6 months and feels very de-conditioned and is working with PT. Town of Residence: [place] Resides with: Spouse ( Marvin) Significant Other/Family: Local (Her sister Candice lives locally.) Employment Status: Retired (Worked at [employer] [place] Instrumental Activities of Daily Living (ADLs): Independent Medications Medication Management: No Issues/Barriers identified Physical Functioning/Mobility Assistive Device: Has a walker at home. Advance Directives Advance Directives: Do you have an Advance Directive: Y 08/26/18 08:32 AD On File at [facility]: Y 08/26/18 08:32 Date Asked 10/03/23 04/02/24 09:15 AD Date Reviewed 04/02/24 04/02/24 09:15 COLST On File at [facility] COLST Date Scanned Code Status Resuscitation Status Full Code Insurance Coverage/Financial Issues Insurance: [employer] Financial Issues: None, per pt Care Team Visit Care Team Role Provider Type Cristal Armenta MD, [place] Primary Care Provider [facility] Other Providers OTHER [place] Admit Provider [facility] STAFF PHYSICIAN Attending Provider Discharge Potential Discharge Needs: PCP F/U Appt Anticipated Barriers to Discharge: Medical Status (Medication management for anticoagulation) Patient/Family Education Needs: Review discharge instructions, discuss Ask Me Three Transportation: Private vehicle Plan: Anticipate, Tash will discharge home when medically ready. Follow up with community providers and her discharge plan of care as instructed. PT recommends: Home with outpatient PT versus cardiac rehab program. No new home services are anticipated at this time. CM will follow. PFSH All Active Problems (Updated 04/07/24 @ 17:38 by Evelina Cowan NP) Hyperlipemia (Acute) Upper GI bleeding (Acute) Supratherapeutic INR (Acute) Non-ST elevation HI (NSTEMI) (Acute) GI bleeding (Chronic) Lumbago with sciatica, left side (Acute) Thyroid disease (Acute) Anxiety (Chronic) Glycosuria (Acute) Dizziness (Acute) Fatigue (Acute) Elevated alkaline phosphatase level (Acute) Screening for HIV (human immunodeficiency virus) (Acute) Encounter for hepatitis C screening test for low risk patient (Acute) Elevated serum creatinine (Acute) Annual physical exam (Acute) Encounter for screening for osteoporosis (Acute) Vitamin D deficiency (Acute) Encounter for annual physical exam (Acute) Arthralgia (Acute) Myalgia (Acute) Depressive disorder (Acute) Family history of hypertrophic cardiomyopathy (Acute) Obesity (Acute) Annual physical exam (Acute 09/09/16) Anticoagulated on warfarin (Acute) handled by [facility] Asthma (Acute 10/21/12) allergies Atrial fibrillation (Acute 11/19/12) paroxysmal; S/P ablation 11/24 04/28; Coumadin [place] Cardiomyopathy (Acute) hypertrophic cardiomyopathy; + fam hx HCM w/ sudden ; yearly echo at [facility] Gastroesophageal reflux disease (Acute) H/O mitral valve replacement (Acute 09/09/16) Hypothyroidism (Acute 11/19/12) ICD (implantable cardioverter-defibrillator) in place (Chronic) [facility]-placed 2005; [facility]-replaced 2009 and 02/04 Lumbago with sciatica, left side (Acute) S/P repair 2 herniated discs; 06/25 recurrent L sciatica Rosacea (Acute) Vitamin D deficiency (Acute 09/22/14) Medical History Urinary tract infection Chronic anticoagulation Surgical History Mitral valve replacement (03/26/16) [facility] HERNIATED DISC ;[facility] Cholecystectomy 05/01; [facility] CARDIAC 11/2002 CARDIAC ABLATION-[facility] 12/2005 DEFIB IMPLANT-[facility] 03/2006 CARDIAC ABLATION-[facility] 10/2006 CARDIAC ABLATION- [facility] 08/2009 DEFIB IMPLANT BATTERY REPLACEMENT-[facility] Family History Mother Hyperlipidemia Breast cancer Father , AGE 62 Alcohol abuse Heart disease Sister Heart disease Stroke Sister Allergy to soy Paternal Grandfather Heart disease Alcohol abuse Maternal Grandfather No problems noted. Paternal Grandmother No problems noted. Paternal Grandmother No problems noted. Social History Smoking/Tobacco Use Status: Never Second Hand Exposure: Yes Smoking risk assessment performed?: Yes Alcohol Intake: current Alcohol type: beer and wine Drug use: Never Substance use type: does not use Adopted: No Caregiver/Support person: No Foster care: No Household members: spouse Housing: house Number of Children: 0 number of grandchildren: 0 Communication Needs: None Education Level: high school Do you need help understanding health information?: Never current occupation: retired Pets and animals: No Sexually active: Yes Do you think of yourself as: straight/heterosexual Current gender identity: female What is your relationship status?: How often do you talk on the phone with friends or family?: three or more times per week How often do you get together with friends or relatives?: once per week How often do you attend sabianist or mu-ism services?: decline to answer Do you belong to any clubs or organized social groups?: no Panel score (0-1 are the most socially isolated patients): 2 What type of physical activity do you participate in: walking and other Details: treadmill, stationary bike Duration: 15-30 minutes/day Frequency: 3-4 times per week Bianca/Latter-Day: Non religion Special bianca needs: No Agree to transfusion: Yes Seatbelt use: always Helmet use: Yes Helmet use: always Drive intox or ride w/intox courtesy bus driver: No Working smoke detector in home: Yes Carbon monox detector in home: Yes Firearms in home: Yes Firearms unloaded and locked: Yes Do you feel safe at home: Yes Do you feel safe in your relationship?: Yes Victim of physical abuse: No Victim of emotional abuse: No Victim of sexual abuse: No Would you like helpful sources: No SDOH(Care Management) Screening Will the Patient Participate in the Screening?: Yes Do you worry about having a steady place to live?: no In the past 12 months, have you had to go without electric, gas, oil or water in your home?: no Have you or anyone in your house had to go without enough food to eat?: no Has lack of transportation kept you from medical appointments or from doing th ings needed for daily living?: no Has anyone in your support network made you feel unsafe for any reason?: no
[2024-04-08] MEDS: Heparin in 0.45% NaCl 25,000 UNIT/250 ML BAG 7 UNIT IVINF (19:53)
[2024-04-08] MEDS: Warfarin 5 MG TAB 7.5 MG PO (19:54)
[2024-04-08] MEDS: dilTIAZem CD 120 MG CAPCR 240 MG PO (19:55)
[2024-04-08] MEDS: Pantoprazole 20 MG TABCR PO (19:56)
[2024-04-08] MEDS: Mirtazapine 15 MG TAB PO (19:56)
[2024-04-08] MEDS: Potassium Chloride 20 MEQ TABCR PO (19:56)
[2024-04-08] MEDS: Atorvastatin 20 MG TAB PO (19:56)
[2024-04-08] MEDS: Warfarin 1 MG TAB PO (20:07)
[2024-04-08 20:48] VITALS: BP 100/65; PULSE 67; RESP 16; TEMP 36.8; O2SAT 95
[2024-04-09] MEDS: Acetaminophen 325 MG TAB 650 MG PO ×2 (05:47→20:31)
[2024-04-09] MEDS: Levothyroxine 50 MCG TAB PO (05:47)
[2024-04-09 06:50] LABS: Abs Immature Grans 0.14 10^3/uL (0.0-0.06); Absolute Basophil Count 0.05 10^3/uL (0.0-0.2); Absolute Eosinophil Count 0.19 10^3/uL (0.0-0.7); Absolute Lymphocyte Count 0.91 10^3/uL (1.2-3.4); Absolute Monocyte Count 1.01 10^3/uL (0.1-0.8); Absolute Neutrophil Count 5.42 10^3/uL (1.2-6.7); Basophils % 0.6 %; Eosinophils % 2.5 %; HCT 26.2 % (36.0-46.0); HGB 8.5 g/dL (11.2-15.7); Immature Grans % 1.8 %; Lymphocytes % 11.8 %; MCH 30.8 pg (27.0-33.0); MCHC 32.4 % (32.0-36.0); MCV 95 fL (80-95); MPV 9.4 fL (8.0-11.0); Monocytes % 13.1 %; Neutrophils % 70.2 %; Platelet Count 213 10^3/uL (130-400); RBC 2.76 10^6/uL (3.93-5.22); RDW 16.8 % (11.7-14.6); WBC 7.72 10^3/uL (4.4-10.8)
[2024-04-09 06:59] LABS: INR 2.1 (0.9-1.1); PTT Activated 59.2 sec (23.6-32.8); Prothrombin Time 19.9 sec (9.1-11.1)
[2024-04-09 07:12] LABS: Anion Gap 10.1 mmol/L (3-11); BUN 9 mg/dL (7-18); CO2 24.9 mmol/L (21.0-32.0); Calcium 8.8 mg/dL (8.5-10.1); Chloride 104 mmol/L (98-107); Estimated GFR 62.91 (mL/min/1.73m2); Glucose 100 mg/dL (74-106); Potassium 3.9 mmol/L (3.5-5.1); Sodium 139 mmol/L (136-145)
[2024-04-09 07:59] VITALS: BP 115/62; PULSE 90; RESP 17; TEMP 36.8; O2SAT 96
[2024-04-09] MEDS: Calcium 600mg/Vit D 200U TAB 1 TAB PO (08:32)
[2024-04-09] MEDS: Magnesium Chloride 64 MG TABCR 128 MG PO ×2 (08:32→20:32)
[2024-04-09] MEDS: Cetirizine 10 MG TAB PO (08:33)
[2024-04-09] MEDS: Torsemide 20 MG TAB PO (08:33)
[2024-04-09] MEDS: Cholecalciferol (Vitamin D3) 1,000 UNIT TAB 2000 UNITS PO (08:33)
[2024-04-09] MEDS: Potassium Chloride 20 MEQ TABCR 40 MEQ PO (08:34)
[2024-04-09] MEDS: Pantoprazole 20 MG TABCR PO ×2 (08:34→20:31)
[2024-04-09] MEDS: dilTIAZem CD 300 MG CAPCR PO (08:36)
[2024-04-09] MEDS: Fluticasone NASAL SPRAY 16 GM BTL NS (08:38)
--- NOTE | 2024-04-09 11:33 | W.PM.PROGNOT ---
Date of Service Date of service: 04/09/24 Time of Service: 11:34 Assessment and Plan Assessment and plan (1) Upper GI bleeding: Status: Acute Assessment and plan: Transfered from [facility]'s ED on 04/05 and Scoped by GI at [facility] Will continue to follow recommendations to continue continue a twice daily course of PPI to complete a 8-week at 20 mg twice daily Tolerating a PO intake Tolerating anticoagulation/ bridging H&H 8.5 & 25- remains stable No further bleeding, vital signs remain stable CBC in AM (2) H/O mitral valve replacement: Status: Acute Assessment and plan: Goal: To be fully anticoagulated on warfarin for INR goal of 2.5-3.5 This morning's INR 2.1 had received 7.5 mg of warfarin w addtional 1 mg last night- scheduled to receive 7.5 mg and additinal 2.5 mg tonight Daily INRs until stable -Usually take 7.5 mg daily except for Mondays where the dose is 10 mg Continue Heparin as per protocal to bridge Coumadin. PTT as per protocol stop drip after 24 hours at therapeutic range (3) Atrial fibrillation: Status: Acute Assessment and plan: Rate controlled Continue diltiazem and metoprolol Metoprolol refused as patient mentioned taking for anxiety Fully anticoagulated for history of MVR and as above (4) ICD (implantable cardioverter-defibrillator) in place: Status: Chronic Assessment and plan: Will continue to monitor (5) Lumbago with sciatica, left side: Status: Acute Assessment and plan: Gabapentin reported as not effective for patient. Pregabalin at 50 mg TID failed then dosing titrated down to 25 mg TID also failed d/t dizziness- Rx-refused Recommends outpatient managment Labs including magnesium phosphorus B1 B12 B6 vitamin D all within normal limits No imaging was completed acutely with recommendations as outpatient follow-up (6) Depressive disorder: Status: Acute Assessment and plan: On home dose mirtazapine scheduled at bedtime and Ativan as needed (7) Hyperlipemia: Status: Acute Assessment and plan: On atorvastatin (8) Hypothyroidism: Status: Acute Assessment and plan: On home dose levothyroxine 50 mcg PO daily TSH on April 02 was 29.46 with T4 at 0.96 and reported down to 12 when rechecked at [facility] Outpatient f/u recommendation to be rechecked in 2 to 4 weeks as per PCP Discussed with Dr. Ruvalcaba Note reviewed and agree with above. bt Subjective Subjective Patient reports: no new complaints, tolerating liquids well, tolerating a regular diet and bowel movement; denies still having pain, blood in stool, nausea, vomiting, shortness of breath or fever Exam Narrative Exam Narrative: HENMT: Facial structures with normal appearance Eyes: Well aligned Neck: Normal ROM, no meningeal signs Neuro:alert and oriented to self, person, place, time and situation. No neurological focal deficit Resp:Unlabored breathing, clear lung bilaterally Cardio: regular rhythm, S1, S2, no murmur, capillary refill<3 sec., bilateral radial and dorsalis pedis pulses are positive, palpable GI: Abdomen is not distended, soft and non tender, bowel sounds are present Integumentary:Bruising to left wrist-forearm area d/t IV insertion on arrival Extremities: strength 5/5 to bilateral lower and upper extremities Psych: RASS 0, congruent mood and normal affect. Objective Last Vital Signs Temp 36.8 C 04/09/24 07:59 Pulse 90 04/09/24 07:59 Resp 17 04/09/24 07:59 BP 115/62 04/09/24 07:59 Pulse Ox 96 04/09/24 07:59 Laboratory Results - last 24 hr 04/08/24 04/09/24 04/09/24 12:50 06:15 11:35 WBC 7.72 RBC 2.76 L Hgb 8.5 L Hct 26.2 L MCV 95 MCH 30.8 MCHC 32.4 RDW 16.8 H Plt Count 213 MPV 9.4 Immature Gran % 1.8 Neutrophils % 70.2 Lymphocytes % 11.8 Monocytes % 13.1 Eosinophils % 2.5 Basophils % 0.6 Nucleated RBC % 0.0 Absolute Neutrophils 5.42 Absolute Lymphocytes 0.91 L Absolute Monocytes 1.01 H Absolute Eosinophils 0.19 Absolute Basophils 0.05 PT 19.9 H INR 2.1 H APTT 75.9 H 59.2 H Cancelled Sodium 139 Potassium 3.9 Chloride 104 Carbon Dioxide 24.9 Anion Gap 10.1 BUN 9 Creatinine 1.0 Est GFR (CKD-EPI 2020) 62.91 Glucose 100 Calcium 8.8 Time Spent with Patient Time Spent with Patient: >50 minutes Time was spent: preparing to see the patient(eg.review tests), obtaining and/or reviewing separately otained hiistory, ordering medications,tests, procedures, referring, communicating with other health healthcare administration intern, indepentently interpreting results, counseling the patient and care coordination
--- NOTE | 2024-04-09 11:58 | PDOC.CMPRO ---
Date of service: 04/09/24 Time of Service: 11:59 Care Management Progress Note Progress Note Text Progress Note Text: Tash was sitting up in a chair when CM met with her. She stated that she was told by the provider that she will likely be here at least until Friday, as long as she continues to improve. She stated that she is looking forward to returning home. Tash stated that PT is recommending either outpatient PT vs cardiac rehab; CM attempted to reach out to cardiac rehab to discuss further without success. Tash stated that her will drive her home when she is ready for discharge. CM will continue to follow. Discharge Potential Discharge Needs: PCP F/U Appt Anticipated Barriers to Discharge: None Identified Patient/Family Education Needs: Review discharge instructions, discuss Ask Me Three Transportation: Private vehicle Plan: Anticipate, Tash will discharge home when medically ready. Follow up with community providers and her discharge plan of care as instructed. PT recommends: Home with outpatient PT versus cardiac rehab program. No new home services are anticipated at this time. CM will follow. SDOH(Care Management) Screening Will the Patient Participate in the Screening?: Yes Do you worry about having a steady place to live?: no In the past 12 months, have you had to go without electric, gas, oil or water in your home?: no Have you or anyone in your house had to go without enough food to eat?: no Has lack of transportation kept you from medical appointments or from doing things needed for daily living?: no Has anyone in your support network made you feel unsafe for any reason?: no
--- NOTE | 2024-04-09 12:34 | PT.INTREAT ---
PT Notes Visit Reasons: Upper gi bleed, s/p mitral valve replacement Inpatient Physical Therapy Treatment Note [facility] Date: 04-09-2024 PRECAUTIONS:Standard, SUBJECTIVE: Pt reports she got a good nights sleep and feels a bit stronger today. She states she is eager to go for a walk and would prefer to do the stairs in the afternoon. OBJECTIVE: seated in chair, IV Heparin infusing in RUE? PAIN: denies ? Transfers: Sit to/from stand: independent Surface to surface transfers withFWW modified independent Ambulation: 300 feet with FWW with 5 standing rest supervision. Patient demonstrates reciprocal pattern intermittent tremor noted right upper extremity. Pt requires intermittent cues for slow pursed lip breathing for pacing. Exercise:10 reps BLE warm up/cool down: seated ankle pumps , LAQ, marching ASSESSMENT: pt demonstrates improvement in activity tolerance as noted by increased distance of ambulation this session. Pt benefited from warm up and cool down seated BLE exercise. PLAN: Pt would benefit from skilled PT 1-2 times per day for global strengthening, transfers, ambulation, pain management and balance facilitation TREATMENT CODE/TIME:21887 x 12mins for 1 unit , 18986 x 15 minutes for 1 unit/[id number] DISCHARGE RECOMMENDATION: Home with outpatient PT versus cardiac rehab program
--- NOTE | 2024-04-09 14:39 | PT.INTREAT ---
PT Notes Visit Reasons: Upper gi bleed, s/p mitral valve replacement Inpatient Physical Therapy Treatment Note [facility] Date: 04/09/24 SUBJECTIVE: Mariela states that she is doing ok this pm. Offers no complaints to me. She does report that her tremors seems to get worse when she fatigues. OBJECTIVE: []? VITALS: ?monitored by nsg. ? BED MOBILITY/TRANSFERS? pt seated in recliner.? Sit-stand: I? Stand-sit: I? Therapeutic Exercises ([id number]) 15min: Direct one-on-one instruction in therapeutic exercises to develop strength, endurance, range of motion and flexibility. ? Exercises ?I ex routine for global LE strengthening. She reports doing these a few times/day. Ambulation ? Assistive Device: FWW? Weight bearing: full Assist: S? Distance:?approx 300'? Deviation: energy conservation. Brief standing rest breaks t/o walk. Approx 7. ? Provided skilled instruction in proper exercise performance ASSESSMENT:? tolerated session well. Tremors noted after approx 250' as she got tired. Also noted frequency in standing rests reporting a combination of leg fatigue and SOB. PLAN: will continue to progress her strength/endurance. Will look to incorporate stairs early in session next visit. Too tired at end of session TREATMENT CODE/TIME: 15 min [id number]
[2024-04-09 15:11] VITALS: BP 111/67; PULSE 85; RESP 14; TEMP 36.8; O2SAT 97
[2024-04-09 20:26] VITALS: BP 102/65; PULSE 81; TEMP 37.5; O2SAT 96
[2024-04-09] MEDS: dilTIAZem CD 120 MG CAPCR 240 MG PO (20:31)
[2024-04-09] MEDS: Potassium Chloride 20 MEQ TABCR PO (20:31)
[2024-04-09] MEDS: Mirtazapine 15 MG TAB PO (20:31)
[2024-04-09] MEDS: Atorvastatin 20 MG TAB PO (20:31)
[2024-04-09] MEDS: Normal Saline Flush 10 ML SYR IVP (20:32)
[2024-04-09] MEDS: Warfarin 5 MG TAB 7.5 MG PO (20:33)
[2024-04-09 20:35] VITALS: BP 107/63
[2024-04-10] MEDS: Acetaminophen 325 MG TAB 650 MG PO ×3 (02:59→21:25)
[2024-04-10 05:18] LABS: Absolute Basophil Count 0.03 10^3/uL (0.0-0.2); Absolute Eosinophil Count 0.22 10^3/uL (0.0-0.7); Absolute Lymphocyte Count 0.92 10^3/uL (1.2-3.4); Absolute Monocyte Count 0.76 10^3/uL (0.1-0.8); Absolute Neutrophil Count 3.39 10^3/uL (1.2-6.7); Basophils % 0.6 %; Eosinophils % 4.1 %; HGB 8.3 g/dL (11.2-15.7); Immature Grans % 1.8 %; MCH 30.9 pg (27.0-33.0); MCHC 31.9 % (32.0-36.0); MCV 97 fL (80-95); MPV 10.3 fL (8.0-11.0); Neutrophils % 62.5 %; Platelet Count 171 10^3/uL (130-400); RBC 2.69 10^6/uL (3.93-5.22); RDW-SD 53.2 fL; WBC 5.42 10^3/uL (4.4-10.8)
[2024-04-10 05:32] LABS: INR 2.2 (0.9-1.1); Prothrombin Time 20.4 sec (9.1-11.1)
[2024-04-10 05:33] LABS: Anion Gap 10.8 mmol/L (3-11); BUN 11 mg/dL (7-18); CO2 24.2 mmol/L (21.0-32.0); CREATININE 0.9 mg/dL (0.55-1.02); Calcium 8.9 mg/dL (8.5-10.1); Chloride 103 mmol/L (98-107); Estimated GFR 71.39 (mL/min/1.73m2); Glucose 101 mg/dL (74-106); Sodium 138 mmol/L (136-145)
[2024-04-10 05:48] LABS: PTT Activated 45.9 sec (23.6-32.8)
[2024-04-10] MEDS: Levothyroxine 50 MCG TAB PO (06:34)
[2024-04-10] MEDS: Pantoprazole 20 MG TABCR PO ×2 (06:34→21:26)
[2024-04-10] MEDS: Heparin in 0.45% NaCl 25,000 UNIT/250 ML BAG 7 UNIT IVINF (06:59)
[2024-04-10 07:35] VITALS: BP 114/68; PULSE 77; RESP 15; TEMP 36.8; O2SAT 97
[2024-04-10] MEDS: Cetirizine 10 MG TAB PO (08:50)
[2024-04-10] MEDS: Potassium Chloride 20 MEQ TABCR 40 MEQ PO (08:50)
[2024-04-10] MEDS: Magnesium Chloride 64 MG TABCR 128 MG PO ×2 (08:50→21:25)
[2024-04-10] MEDS: Cholecalciferol (Vitamin D3) 1,000 UNIT TAB 2000 UNITS PO (08:50)
[2024-04-10] MEDS: Torsemide 20 MG TAB PO (08:50)
[2024-04-10] MEDS: dilTIAZem CD 300 MG CAPCR PO (08:51)
[2024-04-10] MEDS: Calcium 600mg/Vit D 200U TAB 1 TAB PO (08:51)
[2024-04-10] MEDS: Fluticasone NASAL SPRAY 16 GM BTL NS (08:51)
[2024-04-10] MEDS: Normal Saline Flush 10 ML SYR IVP ×2 (08:52→21:27)
--- NOTE | 2024-04-10 10:14 | NUR.NOTE ---
Addendum entered by Shae Thornton RN 04/10/24 19:21: Pt stated after she had her BM her pacer alarm went off and then went off again around 1000. Kaila LAW made aware and ordered pacer interrogation and telemetry. Interrogation report given to GRINDING MACHINE TENDER and also spoke with Lynda Winn of [employer] at 1155 who stated the alarm was d/t fluid overload. Kaila LAW notified. Pt LS CTA throughout, denies SOB at that time, but stated she felt SOB at night. Kaila LAW asked about adjusting diuretics, no changes at that time, will CTM Original Note: Nursing Note: Called into room by pt. Per pt she was in the toilet around 0920 and pushing to have a BM
--- NOTE | 2024-04-10 10:26 | PT.INNT ---
PT Notes Visit Reasons: Upper gi bleed, s/p mitral valve replacement Refused having issues that the doctors and nursing are trying to resolve and would like to wait until tomorrow for PT.
[2024-04-10 13:51] LABS: PTT Activated > 155.0 sec (23.6-32.8)
--- NOTE | 2024-04-10 15:08 | W.PM.PROGNOT ---
Date of Service Date of service: 04/10/24 Time of Service: 15:09 Assessment and Plan Assessment and plan (1) Upper GI bleeding: Status: Acute Assessment and plan: Transfered from [facility]'s ED on 04/05 and Scoped by GI at [facility] Recommendations fora twice daily course of PPI to complete a 8-week at 20 mg twice daily- in progress Tolerating adequate oral intake Tolerating anticoagulation/ bridging H&H remains stable No bleeding observed or reported ,vital signs remain stable CBC in AM (2) H/O mitral valve replacement: Status: Acute Assessment and plan: Goal: To be fully anticoagulated on warfarin for INR goal of 2.5-3.5 This morning's INR 2.2 had received 7.5 mg of warfarin w addtional 2.5 mg last night- scheduled to receive 7.5 mg tonight Daily INRs until stable- might take 5 days of bridging as per discussion with pharmacy - 4 tomorrow -Usually take 7.5 mg daily except for Mondays where the dose is 10 mg Continue Heparin drip as per protocol to bridge Warfarin stop drip after 24 hours at therapeutic range (3) Atrial fibrillation: Status: Acute Assessment and plan: Rate controlled Pacemaker alarmed X2 this AM - Interrogation report : Unsuccessful [facility] alert transmission, A-fib over 6 hours for 6 days, possible up GISELLA valve fluid accumulation from April 07 and ongoing, active ball event of endoleak data, RV capture actual safety margin 2.7 times over program margin of 1.5 times, wavelet template last evaluated on 09/16/2022?consider collecting 1 manually in test/wavelet -Contacted [employer] with report requesting dispatch of attending pharmacy picking technician for collection of manual test data: Case #[id number] -Spoke to pharmacy picking technician: Lynda with recommendation for follow-up at [facility]; and reassurance that the device was working properly; stating that dispatch and manual testing not warranted at this time. Patient on telemetry: AV paced 100% of the time, heart rate 83, no symptomatic Continue home dose diltiazem Metoprolol refused as patient mentioned taking for anxiety?now ordered as needed Fully anticoagulated for history of MVR and as above (4) ICD (implantable cardioverter-defibrillator) in place: Status: Chronic Assessment and plan: Will continue to monitor and as above (5) Lumbago with sciatica, left side: Status: Acute Assessment and plan: Gabapentin failed prior to presentation and Pregabalin failed during admission even at dose of 25 3 times daily d/t dizziness- Rx-refused Recommends outpatient management Labs including magnesium phosphorus B1 B12 B6 vitamin D were all within normal limits Recommendation for outpatient follow-up (6) Depressive disorder: Status: Acute Assessment and plan: Continue home dose Remeron scheduled at bedtime Continue lorazepam as needed (7) Hyperlipemia: Status: Acute Assessment and plan: Continue on home dose of statin (8) Hypothyroidism: Status: Acute Assessment and plan: Continue o home dose levothyroxine 50 mcg PO daily TSH on April 02 was 29.46 with T4 at 0.96 and reported down to 12 when rechecked at [facility] Follow-up recommendation as per primary care practitioner to be rechecked in 2 to [address] Ruvalcaba Subjective Subjective Patient reports: tolerating liquids well, tolerating a regular diet, voiding w/o difficulty (no hematuria ), bowel movement and other (Reported pacemaker alarming this morning X2 ); denies still having pain, blood in stool, nausea, vomiting, shortness of breath or fever Exam Narrative Exam Narrative: patient is independent in ADL's, with no apparent distress, sitting in chair HENMT: Facial structures with normal appearance Neuro:alert and oriented X4 Resp:Clear lung bilaterally Cardio: Tele 100% AV- paced -regular rhythm, no murmur, GI: Abdomen is not distended, soft and non tender, bowel sounds are present Integumentary:Bruising to left wrist-forearm area d/t IV insertion on arrival Extremities: strength 5/5 to bilateral lower and upper extremities Psych: RASS 0, congruent mood and normal affect. Objective Last Vital Signs Temp 36.8 C 04/10/24 07:35 Pulse 77 04/10/24 07:35 Resp 15 04/10/24 07:35 BP 114/68 04/10/24 07:35 Pulse Ox 97 04/10/24 07:35 Laboratory Results - last 24 hr 04/10/24 04/10/24 05:00 13:00 WBC 5.42 RBC 2.69 L Hgb 8.3 L Hct 26.0 L MCV 97 H MCH 30.9 MCHC 31.9 L RDW 16.0 H Plt Count 171 MPV 10.3 Immature Gran % 1.8 Neutrophils % 62.5 Lymphocytes % 17.0 Monocytes % 14.0 Eosinophils % 4.1 Basophils % 0.6 Nucleated RBC % 0.0 Absolute Neutrophils 3.39 Absolute Lymphocytes 0.92 L Absolute Monocytes 0.76 Absolute Eosinophils 0.22 Absolute Basophils 0.03 PT 20.4 H INR 2.2 H APTT 45.9 H > 155.0 H* Sodium 138 Potassium 4.0 Chloride 103 Carbon Dioxide 24.2 Anion Gap 10.8 BUN 11 Creatinine 0.9 Est GFR (CKD-EPI 2020) 71.39 Glucose 101 Calcium 8.9 Time Spent with Patient Time Spent with Patient: >50 minutes Time was spent: preparing to see the patient(eg.review tests), obtaining and/or reviewing separately otained hiistory, ordering medications,tests, procedures, referring, communicating with other health special needs caregiver, indepentently interpreting results, counseling the patient and care coordination
[2024-04-10 15:29] VITALS: BP 109/70; PULSE 79; RESP 15; TEMP 36.8; O2SAT 96
[2024-04-10 20:00] VITALS: BP 103/72; PULSE 77; RESP 16; TEMP 36.9; O2SAT 97
[2024-04-10] MEDS: Warfarin 5 MG TAB 7.5 MG PO (21:24)
[2024-04-10] MEDS: dilTIAZem CD 120 MG CAPCR 240 MG PO (21:25)
[2024-04-10] MEDS: Mirtazapine 15 MG TAB PO (21:26)
[2024-04-10] MEDS: Atorvastatin 20 MG TAB PO (21:26)
[2024-04-10] MEDS: Potassium Chloride 20 MEQ TABCR PO (21:28)
[2024-04-10 21:33] LABS: PTT Activated 51.7 sec (23.6-32.8)
[2024-04-10 23:30] VITALS: BP 110/72; PULSE 78; RESP 16; TEMP 37; O2SAT 99
[2024-04-11] MEDS: Acetaminophen 325 MG TAB 650 MG PO ×3 (02:42→19:56)
[2024-04-11 03:01] VITALS: BP 118/82; PULSE 81; RESP 16; TEMP 36.6; O2SAT 97
[2024-04-11 03:28] LABS: INR 2.5 (0.9-1.1); Prothrombin Time 22.9 sec (9.1-11.1)
[2024-04-11 03:46] LABS: PTT Activated 51.3 sec (23.6-32.8)
[2024-04-11] MEDS: Levothyroxine 50 MCG TAB PO (05:57)
[2024-04-11 07:01] LABS: Abs Immature Grans 0.08 10^3/uL (0.0-0.06); Absolute Basophil Count 0.04 10^3/uL (0.0-0.2); Absolute Lymphocyte Count 0.95 10^3/uL (1.2-3.4); Absolute Monocyte Count 0.74 10^3/uL (0.1-0.8); Absolute Neutrophil Count 3.29 10^3/uL (1.2-6.7); Basophils % 0.8 %; Eosinophils % 3.8 %; HCT 26.5 % (36.0-46.0); HGB 8.6 g/dL (11.2-15.7); Immature Grans % 1.5 %; Lymphocytes % 17.9 %; MCH 30.6 pg (27.0-33.0); MCHC 32.5 % (32.0-36.0); MCV 94 fL (80-95); MPV 9.6 fL (8.0-11.0); Platelet Count 248 10^3/uL (130-400); RBC 2.81 10^6/uL (3.93-5.22); RDW 15.8 % (11.7-14.6); RDW-SD 52.2 fL
[2024-04-11 07:13] LABS: INR 2.6 (0.9-1.1); Prothrombin Time 24.3 sec (9.1-11.1)
[2024-04-11 07:21] LABS: Anion Gap 10.2 mmol/L (3-11); BUN 10 mg/dL (7-18); CO2 22.8 mmol/L (21.0-32.0); CREATININE 0.9 mg/dL (0.55-1.02); Calcium 8.9 mg/dL (8.5-10.1); Chloride 104 mmol/L (98-107); Estimated GFR 71.39 (mL/min/1.73m2); Glucose 111 mg/dL (74-106); Potassium 3.6 mmol/L (3.5-5.1); Sodium 137 mmol/L (136-145)
[2024-04-11] MEDS: Heparin in 0.45% NaCl 25,000 UNIT/250 ML BAG 8 UNIT IVINF (08:10)
[2024-04-11 08:35] VITALS: BP 119/78; PULSE 79; RESP 16; TEMP 37.1; O2SAT 98
[2024-04-11] MEDS: Pantoprazole 20 MG TABCR PO ×2 (09:33→19:56)
[2024-04-11] MEDS: dilTIAZem CD 300 MG CAPCR PO (09:34)
[2024-04-11] MEDS: Calcium 600mg/Vit D 200U TAB 1 TAB PO (09:34)
[2024-04-11] MEDS: Normal Saline Flush 10 ML SYR IVP ×2 (09:34→21:41)
[2024-04-11] MEDS: Cholecalciferol (Vitamin D3) 1,000 UNIT TAB 2000 UNITS PO (09:34)
[2024-04-11] MEDS: Cetirizine 10 MG TAB PO (09:34)
[2024-04-11] MEDS: Magnesium Chloride 64 MG TABCR 128 MG PO ×2 (09:34→19:57)
[2024-04-11] MEDS: Potassium Chloride 20 MEQ TABCR 40 MEQ PO (09:35)
[2024-04-11] MEDS: Torsemide 20 MG TAB PO (09:35)
[2024-04-11] MEDS: Fluticasone NASAL SPRAY 16 GM BTL NS (09:36)
--- NOTE | 2024-04-11 09:54 | PT.INTREAT ---
PT Notes Visit Reasons: Upper gi bleed, s/p mitral valve replacement Inpatient Physical Therapy Treatment Note [facility] Date: 04/11/24 PRECAUTIONS:Standard SUBJECTIVE: Pt reports she is a little tired today due to already being up and getting washed up and has had a busy morning. OBJECTIVE: Therapeutic Activities (02021p[]): Direct one-on-one instruction in dynamic activities to improve functional performance. ? BED MOBILITY/TRANSFERS? Sit-stand: SBA ? Stand-sit: SBA ? Provided skilled cues and instruction on performance and technique throughout. Gait Training (37211j[]): Direct one-on-one instruction and skilled instruction in: ? GAIT? Assistive Device: FWW? Weight bearing: Full Assist: SBA ? Distance:? 300ft ? Therapeutic Exercises (97305c[]): Direct one-on-one instruction in therapeutic exercises to develop strength, endurance, range of motion and flexibility. ? Exercises ? Too fatigued ASSESSMENT:? Pt required frequent short standing rest breaks during ambulation due to SOB. PLAN: Cont as per PT POC. TREATMENT CODE/TIME: 9:40-9:53 (15) TA DISCHARGE RECOMMENDATION: []
[2024-04-11 10:58] LABS: PTT Activated 139.8 sec (23.6-32.8)
[2024-04-11 11:35] VITALS: BP 127/70; PULSE 96; RESP 14; TEMP 37; O2SAT 96
--- NOTE | 2024-04-11 14:10 | PGE_ITS ---
Date of Service Date of service: 04/11/24 Time of Service: 14:10 Assessment and Plan Assessment and plan (1) Upper GI bleeding: Status: Resolved Assessment and plan: Transfered from [facility]'s ED to [facility] on 04/05 and Scoped by GI at [facility] Recommendations fora twice daily course of PPI to complete a 8-week at 20 mg twice daily- in progress Tolerating adequate oral intake Tolerating anticoagulation/ bridging H&H remains stable No bleeding observed or reported ,vital signs remain stable CBC in AM (2) H/O mitral valve replacement: Status: Acute Assessment and plan: Goal: To be fully anticoagulated on warfarin for INR goal of 2.5-3.5 This morning's INR 2.6 had received 10 mg of warfarin 04/09, 7.5 mg 04/10, due to receive 7.5 tonight Daily INRs until stable- might take 5 days of bridging as per discussion with pharmacy - Day 5 tomorrow -Usually take 7.5 mg daily except for Mondays where the dose is 10 mg Continue Heparin drip as per protocol to bridge Warfarin stop drip after 24 hours at therapeutic range (3) Atrial fibrillation: Status: Acute Assessment and plan: Rate controlled Pacemaker alarmed X2 04/10 - Interrogation report : Unsuccessful [facility] alert transmission, A-fib over 6 hours for 6 days, possible up GISELLA valve fluid accumulation from April 07 and ongoing, active ball event of endoleak data, RV capture actual safety margin 2.7 times over program margin of 1.5 times, wavelet template last evaluated on 09/16/2022?consider collecting 1 manually in test/wavelet -Contacted [employer] with report requesting dispatch of attending forensic science technician for collection of manual test data: Case #[id number] -Spoke to forensic science technician: Lynda with recommendation for follow-up at [facility]; and reassurance that the device was working properly; stating that dispatch and manual testing not warranted at this time. Patient on telemetry: AV paced 100% of the time, heart rate 83, no symptomatic Continue home dose diltiazem Metoprolol refused as patient mentioned taking for anxiety?now ordered as needed Full anticoagulation for history of MVR and as above (4) ICD (implantable cardioverter-defibrillator) in place: Status: Chronic Assessment and plan: Will continue to monitor and as above (5) Lumbago with sciatica, left side: Status: Acute Assessment and plan: Gabapentin failed prior to presentation and Pregabalin failed during admission even at dose of 25 3 times daily d/t dizziness- Rx-refused Recommends outpatient management Labs including magnesium phosphorus B1 B12 B6 vitamin D were all within normal limits Recommendation for outpatient follow-up (6) Depressive disorder: Status: Acute Assessment and plan: Continue home dose Remeron scheduled at bedtime Continue lorazepam as needed (7) Hyperlipemia: Status: Acute Assessment and plan: Continue on home dose of statin (8) Hypothyroidism: Status: Acute Assessment and plan: Continue home dose levothyroxine 50 mcg PO daily TSH on April 02 was 29.46 with T4 at 0.96 and reported down to 12 when rechecked at [facility] Follow-up recommendation as per primary care practitioner to be rechecked in 2 to [address] Ruvalcaba Subjective Subjective Patient reports: no new complaints, tolerating liquids well, tolerating a regular diet, bowel movement and afebrile; denies shortness of breath Interval history since last seen: Oxygenating well on room air no chest pain shortness of breath abdominal pain nausea or vomiting. No evidence of bleeding has not been sleeping well due to multiple interruptions during the night Exam Narrative Exam Narrative: Well-appearing female of stated age in no acute distress sitting up in a recliner head is atraumatic oral mucosas moist eyes nonicteric noninjected neck supple no JVD cardiovascular well-perfused respirations even unlabored abdomen benign e extremities are without edema neurologic she is awake alert oriented no focal deficits psychiatric normal mood and affect Objective Last Vital Signs Temp 37 C 04/11/24 11:35 Pulse 96 H 04/11/24 11:35 Resp 14 04/11/24 11:35 BP 127/70 04/11/24 11:35 Pulse Ox 96 04/11/24 11:35 Laboratory Results - last 24 hr 04/10/24 04/11/24 04/11/24 21:10 03:10 06:23 WBC 5.30 RBC 2.81 L Hgb 8.6 L Hct 26.5 L MCV 94 MCH 30.6 MCHC 32.5 RDW 15.8 H Plt Count 248 MPV 9.6 Immature Gran % 1.5 Neutrophils % 62.0 Lymphocytes % 17.9 Monocytes % 14.0 Eosinophils % 3.8 Basophils % 0.8 Nucleated RBC % 0.0 Absolute Neutrophils 3.29 Absolute Lymphocytes 0.95 L Absolute Monocytes 0.74 Absolute Eosinophils 0.20 Absolute Basophils 0.04 PT 22.9 H 24.3 H INR 2.5 H 2.6 H APTT 51.7 H 51.3 H Sodium 137 Potassium 3.6 Chloride 104 Carbon Dioxide 22.8 Anion Gap 10.2 BUN 10 Creatinine 0.9 Est GFR (CKD-EPI 2020) 71.39 Glucose 111 H Calcium 8.9 04/11/24 04/11/24 09:00 10:05 WBC RBC Hgb Hct MCV MCH MCHC RDW Plt Count MPV Immature Gran % Neutrophils % Lymphocytes % Monocytes % Eosinophils % Basophils % Nucleated RBC % Absolute Neutrophils Absolute Lymphocytes Absolute Monocytes Absolute Eosinophils Absolute Basophils PT INR APTT Cancelled 139.8 H* Sodium Potassium Chloride Carbon Dioxide Anion Gap BUN Creatinine Est GFR (CKD-EPI 2020) Glucose Calcium Time Spent with Patient Time Spent with Patient: 35-49 minutes Time was spent: preparing to see the patient(eg.review tests), obtaining and/or reviewing separately otained hiistory, ordering medications,tests, procedures, indepentently interpreting results and counseling the patient
[2024-04-11 15:44] VITALS: BP 121/72; PULSE 78; RESP 16; TEMP 36.8; O2SAT 95
[2024-04-11 19:14] LABS: PTT Activated 38.9 sec (23.6-32.8)
[2024-04-11] MEDS: dilTIAZem CD 120 MG CAPCR 240 MG PO (19:55)
[2024-04-11] MEDS: Potassium Chloride 20 MEQ TABCR PO (19:55)
[2024-04-11] MEDS: Mirtazapine 15 MG TAB PO (19:56)
[2024-04-11] MEDS: Warfarin 5 MG TAB 7.5 MG PO (19:57)
[2024-04-11] MEDS: Atorvastatin 20 MG TAB PO (19:57)
[2024-04-11 20:02] VITALS: BP 106/89; PULSE 84; RESP 18; TEMP 36.5; O2SAT 97
[2024-04-12 02:39] LABS: PTT Activated 101.4 sec (23.6-32.8)
[2024-04-12] MEDS: Acetaminophen 325 MG TAB 650 MG PO (04:37)
[2024-04-12] MEDS: Levothyroxine 50 MCG TAB PO (04:37)
[2024-04-12 07:00] LABS: INR 2.7 (0.9-1.1); Prothrombin Time 24.7 sec (9.1-11.1)
[2024-04-12 07:42] VITALS: BP 115/68; PULSE 77; RESP 16; TEMP 36.8; O2SAT 95
[2024-04-12] MEDS: Normal Saline Flush 10 ML SYR IVP (07:43)
[2024-04-12] MEDS: Magnesium Chloride 64 MG TABCR 128 MG PO (07:43)
[2024-04-12] MEDS: Cholecalciferol (Vitamin D3) 1,000 UNIT TAB 2000 UNITS PO (07:43)
[2024-04-12] MEDS: Calcium 600mg/Vit D 200U TAB 1 TAB PO (07:43)
[2024-04-12] MEDS: Pantoprazole 20 MG TABCR PO (07:44)
[2024-04-12] MEDS: Potassium Chloride 20 MEQ TABCR 40 MEQ PO (07:44)
[2024-04-12] MEDS: Cetirizine 10 MG TAB PO (07:44)
[2024-04-12] MEDS: dilTIAZem CD 300 MG CAPCR PO (07:44)
[2024-04-12] MEDS: Torsemide 20 MG TAB PO (07:44)
[2024-04-12] MEDS: Fluticasone NASAL SPRAY 16 GM BTL NS (07:48)
[2024-04-12 09:24] LABS: PTT Activated 44.3 sec (23.6-32.8)
--- NOTE | 2024-04-12 10:00 | PDOC.CMDIS ---
Date of service: 04/12/24 Time of Service: 10:00 LACE Index Scoring Tool Questions: Length of Stay (in days): 4 - 6 Was the patient admitted via the E.D.?: No Comorbidities: Previous M.I. E.D. Visits: 2 Answers: Total Score: 7 Risk of Readmission: Low Risk Care Management Discharge Plan Reason for Hospitalization: upper GI bleed, s/p mitral valve replacement Discharge Plan: Tash will return home today with a referral to outpatient PT. Her will drive her home via private vehicle. She will follow up with her PCP and discharge plan of care. She is happy to be going home. Patient/Family Education Needs: Review discharge instructions and limitations, discussion of self care needs including ask me three. SDOH Health Related Social Needs: No Data to Display
--- NOTE | 2024-04-12 10:03 | DSE_ITS ---
Date of service: 04/12/24 Time of Service: 10:03 DS: Diagnosis Discharge Diagnosis (1) Upper GI bleeding: Status: Resolved (2) H/O mitral valve replacement: Status: Acute (3) Atrial fibrillation: Status: Acute (4) ICD (implantable cardioverter-defibrillator) in place: Status: Chronic (5) Lumbago with sciatica, left side: Status: Acute (6) Depressive disorder: Status: Acute (7) Hyperlipemia: Status: Acute (8) Hypothyroidism: Status: Acute Discharge Plan Disposition Patient Disposition: Home Condition: Improving Discharge Details Reason For Visit: Upper gi bleed, s/p mitral valve replacement Admit Date/Time: 04/07/24 14:20 Admit Provider: Toni Adame Attending Provider: Toni Adame Primary Care Provider: Cristal Armenta [facility] Course Hospital Course: This 64-year-old female patient with a past medical history significant fro ICD/ pacmeaker placement, hypothyroidism, depression/ anxiety, and mitral valve replacement fully anticoagulated on Coumadin for an INR of 2.5-3.5 with presentation to the emergency department at [facility] on April 02, 2024 for weakness, dark emesis, melena and found to be supratherapeutic with an INR of 10 with treatment with fresh frozen plasma, vitamin K, IV protonix , IVF and 1 unit of packed red blood cell administration, then subsequent transferred to [facility] status post finding of an elevated troponin pointing to type II non-STEMI was transferred back to [facility] on 04/07/2024, after her stay at [facility] where she underwent an upper endoscopy and 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 The patient has previously been on o ral prednisone started on 03/24/2024 for left-sided lumbago with sciatica. Recommendations are to take proton pump inhibitor twice daily for 8 weeks as well as to complete heparin bridging to warfarin for goal INR of 2.5-3. During her stay, the patient continued to receive heparin drip as per protocol. The patient H&H remained stable without any further bleeding. INR has been therapeutic since 04/11/2024 and remains at 2.7 today. The patient experienced an alarm from her ICD/pacemaker and upon interrogation and review and discussion with [employer] neurology technician on 04/10/2024, the device was functioning properly without any recommendation for manual testing as requested. The patient reported having failed gabapentin therapy for her leg pain but trial for a small dose of Lyrica as requested also failed due to complaint of dizziness. The patient also reported that that [facility] provider was to provide a neurology referral. Physical therapy recommendation are for home physical therapy versus cardiac rehabilitation program. Will refer the patient to outpatient physical therapy. The cardiac rehabilitation program should be initiated as per discussion between patient, cardiology provider and primary care practitioner. The patient will be discharged home with follow-up with primary care practitioner within 7 days of discharge. Will also need to follow-up with [facility] cardiology for the management of a her warfarin therapy as well as for review of her pacemaker alarms. Discussed with Dr. Ruvalcaba Home Meds and New Rx's Prescriptions: New warfarin [Jantoven] 5 mg Tablet 7.5 mg PO HS Qty: 60 0RF Rx Instructions: Take 7.5 mg on , take 10 mg on Friday pantoprazole 20 mg Tablet,Delayed Release (Dr/Ec) 20 mg PO BID@ Qty: 120 0RF Continued cholecalciferol (vitamin D3) 2,000 unit capsule 2,000 unit PO DAILY cetirizine [Zyrtec] 10 mg tablet 10 mg PO DAILY Qty: 90 4RF Rx Instructions: instead of Loratidine atorvastatin 20 mg tablet 20 mg PO QPM Qty: 90 4RF Qvar RediHaler 40 mcg/actuation HFA aerosol breath activated 2 inh IH BID Qty: 31.8 5RF diltiazem HCl 240 mg capsule,extended release 24hr 240 mg PO QPM Qty: 90 5RF diltiazem HCl 300 mg capsule,extended release 24hr 300 mg PO QAM Qty: 90 4RF potassium chloride 20 mEq tablet,ER particles/crystals See Rx Instructions PO BID Qty: 270 3RF Rx Instructions: 2tabs am; 1 tab pm orally twice a day; fluticasone propionate 50 mcg/actuation spray,suspension 2 spray intranasal DAILY Qty: 47.4 5RF Rx Instructions: administer into each nostril levothyroxine 50 mcg tablet 50 mcg PO DAILY Qty: 90 6RF mirtazapine 15 mg tablet 15 mg PO QHS Qty: 90 4RF magnesium chloride [Mag 64] 64 MG tablet,delayed release (DR/EC) 2 tab PO BID Qty: 180 Rx Instructions: 128 MG BID torsemide 20 mg tablet 20 mg PO DAILY Qty: 90 5RF lorazepam 0.5 mg tablet 0.5 mg PO DAILY PRN (Reason: anxiety) Qty: 30 1RF Calcium 600 + D(3) 1 EACH tablet 1 tab PO DAILY metoprolol tartrate 25 mg tablet 25 mg PO TID Patient Comments: pt states taking 3 times daily now Discontinued warfarin 5 mg tablet 10 mg PO QHS Qty: 180 4RF Patient Comments: per [facility] dc instructions, take 7.5mg on 04/07 Rx Instructions: DIRECTED BY [facility]; BASED ON INR Discharge Instructions Instructions: GI bleed Stand Alone Forms: Nursing Discharge Form Referrals: CARDIOLOGY,[facility] [OTHER] - (F/u within 1-2 weeks of discharge please. Mitral valve on warfarin. Pacemaker alarms to be reviewed by [facility] as per orthotic technician after interrogation report; pacemaker was working adequately) Cristal Armenta MD, [place] [Primary Care Provider] - (F/u within one week of discharge please) Rudy Guzman,[facility] [OTHER] - Activity:: Activity as Tolerated Equipment/Supplies:: No Equipment Needed Diet:: heart healthy- on warfarin Discharge Orders Other Ambulatory Orders: Prothrombin Time (Routine) Timeframe: [id number] Facility: [facility] - Location: Laboratory Outpatient - [facility] Ordered By: Kaila Torres DS: Summary Time Spent with Patient providing and/or coordinating discharge services: Greater than 30 minutes Status at Discharge Functional status at discharge: independent ambulation Overall status at discharge: patient is progressing back to baseline Mental Status: mental status grossly normal Speech and Movement: speech and movement normal Mood: congruent mood Affect: normal affect Quality:SDOH Health Related Social Needs: No Data to Display Exam Narrative Exam Narrative: patient is independent in ADL's, with no apparent distress, sitting in chair HENMT: Facial structures with normal appearance Neuro:alert and oriented X4 Resp:Clear lung bilaterally Cardio: Tele 100% V- paced -regular rhythm, no murmur, GI: Abdomen is not distended, soft and non tender, bowel sounds are present Integumentary:improved bruising to left wrist-forearm area d/t IV insertion on arrival : No CVA tenderness Extremities: strength 5/5 to bilateral lower and upper extremities Psych: RASS 0, congruent mood and normal affect. Psych Mental Status: mental status grossly normal Speech and Movement: speech and movement normal Mood: congruent mood Affect: normal affect DS: Data Vitals/I&O Vitals and I&O: Vital Signs Temperature 36.8 C 04/12/24 07:42 Temperature Source Temporal Artery Scan 04/12/24 07:42 Pulse 77 04/12/24 07:42 Pulse Rhythm Irregular 04/07/24 14:44 Respiratory Rate 16 04/12/24 07:42 Respiratory Effort Normal, Accessory Muscle Use 04/07/24 14:44 Respiratory Pattern Normal 04/07/24 14:44 Blood Pressure 115/68 04/12/24 07:42 Pulse Oximetry 95 04/12/24 07:42 Oxygen Delivery Method Room Air 04/12/24 07:42 Oxygen Flow Rate 0 04/12/24 07:42 Pain Level 0 04/12/24 07:42 Intake & Output 04/11/24 04/11/24 04/12/24 11:59 23:59 11:59 Intake Total 91.367 / 128.950 37.583 / 128.950 132.817 / 132.817 Output Total 1700 / 2700 1000 / 2700 700 / 700 Balance -1608.633 / -2571.050 -962.417 / -2571.050 -567.183 / -567.183 Weight 92.2 kg 91.989 kg 92.1 kg Intake: IV 91.367 / 128.950 37.583 / 128.950 132.817 / 132.817 Output: Urine 1700 / 2700 1000 / 2700 700 / 700 Other: Urine Color Pale Pale Pale Urine Appearance Clear Clear Clear Urine Odor None None None Stool Size Moderate Data Completed and Pending Labs on day of discharge: Labs from last 24 hours 04/12/24 04/12/24 04/12/24 09:00 06:12 01:50 PT 24.7 H INR 2.7 H APTT 44.3 H 101.4 H* 04/11/24 04/11/24 18:47 10:05 PT INR APTT 38.9 H 139.8 H* PFSH All Active Problems (Updated 04/11/24 @ 14:11 by Evelina Cowan NP) Hyperlipemia (Acute) Supratherapeutic INR (Acute) Non-ST elevation IL (NSTEMI) (Acute) GI bleeding (Chronic) Lumbago with sciatica, left side (Acute) Thyroid disease (Acute) Anxiety (Chronic) Glycosuria (Acute) Dizziness (Acute) Fatigue (Acute) Elevated alkaline phosphatase level (Acute) Screening for HIV (human immunodeficiency virus) (Acute) Encounter for hepatitis C screening test for low risk patient (Acute) Elevated serum creatinine (Acute) Annual physical exam (Acute) Encounter for screening for osteoporosis (Acute) Vitamin D deficiency (Acute) Encounter for annual physical exam (Acute) Arthralgia (Acute) Myalgia (Acute) Depressive disorder (Acute) Family history of hypertrophic cardiomyopathy (Acute) Obesity (Acute) Annual physical exam (Acute 09/09/16) Anticoagulated on warfarin (Acute) handled by [facility] Asthma (Acute 10/21/12) allergies Atrial fibrillation (Acute 11/19/12) paroxysmal; S/P ablation 11/24 04/28; Coumadin [place] Cardiomyopathy (Acute) hypertrophic cardiomyopathy; + fam hx HCM w/ sudden ; yearly echo at [facility] Gastroesophageal reflux disease (Acute) H/O mitral valve replacement (Acute 09/09/16) Hypothyroidism (Acute 11/19/12) ICD (implantable cardioverter-defibrillator) in place (Chronic) [facility]-placed 2005; [facility]-replaced 2009 and 02/04 Lumbago with sciatica, left side (Acute) S/P repair 2 herniated discs; 06/25 recurrent L sciatica Rosacea (Acute) Vitamin D deficiency (Acute 09/22/14) Medical History Urinary tract infection Chronic anticoagulation Surgical History Mitral valve replacement (03/26/16) [facility] HERNIATED DISC ;[facility] Cholecystectomy 05/01; [facility] CARDIAC 11/2002 CARDIAC ABLATION-[facility] 12/2005 DEFIB IMPLANT-[facility] 03/2006 CARDIAC ABLATION-[facility] 10/2006 CARDIAC ABLATION- [facility] 08/2009 DEFIB IMPLANT BATTERY REPLACEMENT-[facility] Family History Mother Hyperlipidemia Breast cancer Father , AGE 62 Alcohol abuse Heart disease Sister Heart disease Stroke Sister Allergy to soy Paternal Grandfather Heart disease Alcohol abuse Maternal Grandfather No problems noted. Paternal Grandmother No problems noted. Paternal Grandmother No problems noted. Social History Smoking/Tobacco Use Status: Never Second Hand Exposure: Yes Smoking risk assessment performed?: Yes Alcohol Intake: current Alcohol type: beer and wine Drug use: Never Substance use type: does not use Adopted: No Caregiver/Support person: No Foster care: No Household members: spouse Housing: house Number of Children: 0 number of grandchildren: 0 Communication Needs: None Education Level: high school Do you need help understanding health information?: Never current occupation: retired Pets and animals: No Sexually active: Yes Do you think of yourself as: straight/heterosexual Current gender identity: female What is your relationship status?: How often do you talk on the phone with friends or family?: three or more times per week How often do you get together with friends or relatives?: once per week How often do you attend hoahaoism or rastafarian services?: decline to answer Do you belong to any clubs or organized social groups?: no Panel score (0-1 are the most socially isolated patients): 2 What type of physical activity do you participate in: walking and other Details: treadmill, stationary bike Duration: 15-30 minutes/day Frequency: 3-4 times per week Bianca/Methodist: Non buddhism Special bianca needs: No Agree to transfusion: Yes Seatbelt use: always Helmet use: Yes Helmet use: always Drive intox or ride w/intox [employer] flatbed truck driver: No Working smoke detector in home: Yes Carbon monox detector in home: Yes Firearms in home: Yes Firearms unloaded and locked: Yes Do you feel safe at home: Yes Do you feel safe in your relationship?: Yes Victim of physical abuse: No Victim of emotional abuse: No Victim of sexual abuse: No Would you like helpful sources: No Time Spent with Patient Time Spent with Patient: 70-84 minutes4 Time was spent: preparing to see the patient(eg.review tests), obtaining and/or reviewing separately otained hiistory, ordering medications,tests, procedures, referring, communicating with other health childcare director, indepentently interpreting results, counseling the patient and care coordination
--- NOTE | 2024-04-12 10:15 | PT.INTREAT ---
PT Notes Visit Reasons: Upper gi bleed, s/p mitral valve replacement Date: 04/12/24 PRECAUTIONS: Standard, fall precaution SUBJECTIVE: Pt in recliner when approached for therapy this morning, agreed to participating with therapy session, looking forward to going home today. OBJECTIVE: ? PAIN: Denies VITALS: monitored by nursing Therapeutic Activities [id number]: Direct one-on-one instruction in dynamic activities to improve functional performance. ?? BED MOBILITY/TRANSFERS? Sit-stand: ?Supervision ? Stand-sit: ??Supervision ? Bed-Chair:? ?Supervision ? Chair-bed: Supervision Provided skilled cues and instruction on performance and technique throughout. Gait Training 13772: Direct one-on-one instruction and skilled instruction in: Employing an assistive device Modified weight-bearing status Movement sequencing Turning and movement with proper form Provided verbal cues for equipment management and technique Provided instruction in gait pattern Patient education regarding pacing and breathing techniques to maximize activity tolerance? GAIT? Assistive Device: ??FWW? Weight bearing: FWB Assist: ?SBA ? Distance:?? 150x2, 100'x2 ? Deviation: ? Short step lenght, low step height, stoop forward posture, slow chey speed ? STAIRS:? ? Stair well 6 x 12steps Step to gait pattern 1handrail contact on gait belt and 1hand held for safety.? ASSESSMENT:?[facility], [facility] pt would have to use stairs at home which was 14 steps to et up to second floor. pt cued for energy conservation strategies with good comprehension, cued for DBE to improve SOB while doing strenous activity with good execution. PLAN: Continue with balance training, global strengthening and general conditioning for improved safety, mobility and activity tolerance until pt is ready for DC. TREATMENT CODE/TIME: [id number], [id number] 25mins ( 9:55-10:20am)
== END 2024-04-12 11:21 | disposition home or self-care (01) | DRG 368 ==
PROVIDERS: Family Medicine; Nurse Practitioner Acute Care; Admitting Provider Family Medicine; PCP Family Medicine; Visit Provider Family Medicine
DX: K22.6 Gastro-esophageal laceration-hemorrhage syndrome (principal); I21.A1 Myocardial infarction type 2; I42.2 Other hypertrophic cardiomyopathy; K22.11 Ulcer of esophagus with bleeding; Z95.2 Presence of prosthetic heart valve; Z95.810 Presence of automatic (implantable) cardiac defibrillator; M54.42 Lumbago with sciatica, left side; E78.5 Hyperlipidemia, unspecified; E03.9 Hypothyroidism, unspecified; Z79.01 Long term (current) use of anticoagulants; R79.1 Abnormal coagulation profile; F41.9 Anxiety disorder, unspecified; E55.9 Vitamin D deficiency, unspecified; F32.A Depression, unspecified; E66.9 Obesity, unspecified; J45.909 Unspecified asthma, uncomplicated; I48.0 Paroxysmal atrial fibrillation; Z68.33 Body mass index [BMI] 33.0-33.9, adult
CPT/HCPCS: 00123; 36415; 80048; 94640; 97110; 97116; 97162; 97530; 85025; 85610; 85730; 94664; 99223; 99232; 99233; 99239; J1644

== ENCOUNTER 2024-04-15 08:13 | Outpatient (CLI) | payer OTHER, SELFPAY ==
[2024-04-15 07:37] LABS: INR 3.2 (0.9-1.1); Prothrombin Time 29.1 sec (9.1-11.1)
== END 2024-04-15 08:14 | disposition home or self-care (01) ==
LOC: LBO 08:13
PROVIDERS: PCP Family Medicine; Visit Provider Internal Medicine
DX: Z95.2 Presence of prosthetic heart valve (principal); I48.21 Permanent atrial fibrillation
CPT/HCPCS: 36415; 85610

== ENCOUNTER 2024-04-20 02:56 | Outpatient (CLI) | payer OTHER, SELFPAY ==
[2024-04-20 10:44] LABS: HCT 33.5 % (36.0-46.0); HGB 10.5 g/dL (11.2-15.7); MCH 29.6 pg (27.0-33.0); MCHC 31.3 % (32.0-36.0); MCV 94 fL (80-95); MPV 8.6 fL (8.0-11.0); Platelet Count 440 10^3/uL (130-400); RBC 3.55 10^6/uL (3.93-5.22); RDW 14.6 % (11.7-14.6); RDW-SD 50.4 fL; WBC 7.46 10^3/uL (4.4-10.8)
[2024-04-20 10:52] LABS: Prothrombin Time 23.6 sec (9.1-11.1)
[2024-04-20 11:25] LABS: INR 2.5 (0.9-1.1)
[2024-04-20 11:46] LABS: Iron 32 ug/dL (50-170)
[2024-04-20 12:07] LABS: ALT 27 U/L (14-59); AST 25 U/L (15-37); Albumin 4.2 g/dL (3.4-5.0); Alkaline Phosphatase 48 U/L (46-116); Anion Gap 11.4 mmol/L (3-11); BUN 11 mg/dL (7-18); Bilirubin, Total 0.65 mg/dL (0.2-1.0); CO2 25.6 mmol/L (21.0-32.0); CREATININE 0.9 mg/dL (0.55-1.02); Calcium 10.3 mg/dL (8.5-10.1); Chloride 102 mmol/L (98-107); Estimated GFR 71.39 (mL/min/1.73m2); Ferritin 45 ng/mL (8-252); Glucose 106 mg/dL (74-106); Potassium 4.4 mmol/L (3.5-5.1); Sodium 139 mmol/L (136-145); Total Protein 7.7 g/dL (6.4-8.2); Vitamin B12 513 pg/mL (193-986)
== END 2024-04-20 02:57 | disposition home or self-care (01) ==
PROVIDERS: Nurse Practitioner Acute Care; PCP Family Medicine; Visit Provider Family Medicine
DX: K92.2 Gastrointestinal hemorrhage, unspecified (principal); I10 Essential (primary) hypertension; K21.9 Gastro-esophageal reflux disease without esophagitis; Z79.01 Long term (current) use of anticoagulants; Z95.2 Presence of prosthetic heart valve; I48.21 Permanent atrial fibrillation
CPT/HCPCS: 36415; 80053; 85027; 82607; 82728; 83540; 85610

== ENCOUNTER 2024-04-27 02:13 | Outpatient (CLI) | payer OTHER, SELFPAY ==
[2024-04-27 09:50] LABS: INR 2.5 (0.9-1.1); Prothrombin Time 23.3 sec (9.1-11.1)
[2024-04-27 10:11] LABS: TSH (W/Ref FT4) 10.51 uIU/mL (0.36-3.74)
[2024-04-27 10:39] LABS: FREE T4 1.12 ng/dL (0.76-1.46)
== END 2024-04-27 02:14 | disposition home or self-care (01) ==
PROVIDERS: PCP Family Medicine; Visit Provider Internal Medicine
DX: E03.9 Hypothyroidism, unspecified (principal); R26.81 Unsteadiness on feet
CPT/HCPCS: 36415; 84439; 84443; 85610

== ENCOUNTER 2024-05-10 03:00 | Outpatient (CLI) | payer OTHER, SELFPAY ==
[2024-05-10 11:42] LABS: INR 2.4 (0.9-1.1); Prothrombin Time 22.7 sec (9.1-11.1)
== END 2024-05-10 03:01 | disposition home or self-care (01) ==
PROVIDERS: PCP Family Medicine; Visit Provider Internal Medicine
DX: Z95.2 Presence of prosthetic heart valve (principal); I48.21 Permanent atrial fibrillation
CPT/HCPCS: 36415; 85610

== ENCOUNTER 2024-05-25 02:37 | Outpatient (CLI) | payer OTHER, SELFPAY ==
[2024-05-25 12:40] LABS: INR 2.8 (0.9-1.1); Prothrombin Time 25.4 sec (9.1-11.1)
== END 2024-05-25 02:38 | disposition home or self-care (01) ==
LOC: LOS 02:37
PROVIDERS: PCP Family Medicine; Visit Provider Internal Medicine
DX: Z95.2 Presence of prosthetic heart valve (principal); I48.21 Permanent atrial fibrillation
CPT/HCPCS: 36415; 85610

== ENCOUNTER 2024-05-27 03:10 | Outpatient (CLI) | payer OTHER, SELFPAY ==
[2024-05-27 12:42] LABS: Hemoglobin A1C 5.6 % (<5.7)
[2024-05-27 12:48] LABS: Iron 36 ug/dL (50-170)
[2024-05-27 13:03] LABS: Ferritin 20 ng/mL (8-252); TSH (W/Ref FT4) 11.57 uIU/mL (0.36-3.74); Vitamin B12 514 pg/mL (193-986)
[2024-05-27 13:41] LABS: FREE T4 1.24 ng/dL (0.76-1.46)
== END 2024-05-27 03:11 | disposition home or self-care (01) ==
LOC: LOS 03:10
PROVIDERS: PCP Family Medicine; Visit Provider Family Medicine
DX: Z00.00 Encounter for general adult medical examination without abnormal findings (principal); E03.9 Hypothyroidism, unspecified; E11.9 Type 2 diabetes mellitus without complications
CPT/HCPCS: 36415; 82607; 82728; 83036; 83540; 84439; 84443

== ENCOUNTER 2024-05-27 09:45 | Outpatient (REF) | payer OTHER, SELFPAY ==
--- NOTE | 2024-05-27 08:30 | PAPFT_PTH ---
PATIENT: Mariela Rosenthal LOC: [facility] U#:[id number] AGE/SX: 64/F ROOM: RE05/27/[address]: Cristal Armenta MD, DC : 1960 BED: DIS: 05/27/2024 SPEC #: [id number] RECD: 05/27/24 12:51 STATUS: FRANKIE REQ #: [id number] KALEN: 05/27/24 08:[address]: Cristal Armenta DEPT: [facility] Cytology RECD BY: Shonda Clark Tissues: 1 - CX/ENDOCX FOR PAP SMEARS Procedures: PAP THIN PREP/UVM Screening HPV DNA PROBE Comments: [id number] (HPV 16 & 18/45)
== END 2024-05-27 09:46 | disposition home or self-care (01) ==
LOC: LBN 09:45
PROVIDERS: PCP Family Medicine; Visit Provider Family Medicine
DX: Z00.00 Encounter for general adult medical examination without abnormal findings (principal); E03.9 Hypothyroidism, unspecified; E11.9 Type 2 diabetes mellitus without complications; I42.9 Cardiomyopathy, unspecified; R89.6 Abnormal cytological findings in specimens from other organs, systems and tissues
CPT/HCPCS: 88142; 87624

== ENCOUNTER 2024-06-21 03:14 | Outpatient (CLI) | payer OTHER, SELFPAY ==
[2024-06-21 12:40] LABS: Prothrombin Time 18.6 sec (9.1-11.1)
== END 2024-06-21 03:15 | disposition home or self-care (01) ==
LOC: LOS 03:14
PROVIDERS: PCP Family Medicine; Visit Provider Internal Medicine
DX: Z95.2 Presence of prosthetic heart valve (principal); I48.21 Permanent atrial fibrillation
CPT/HCPCS: 36415; 85610

== ENCOUNTER 2024-06-22 02:05 | Outpatient (RCR) | payer OTHER, SELFPAY ==
[2024-06-22] MEDS: SODIUM FER. GLUC./SUC. 125 MG in Normal Saline 100 ML 110 MG IVPB (13:26)
[2024-06-22] MEDS: Normal Saline Flush 10 ML SYR IVP (13:26)
== END 2024-06-22 23:59 | disposition home or self-care (01) ==
LOC: INF 02:05
PROVIDERS: PCP Family Medicine; Visit Provider Family Medicine
DX: D50.9 Iron deficiency anemia, unspecified (principal)
CPT/HCPCS: 96365; J2916

== ENCOUNTER 2024-07-13 02:03 | Outpatient (RCR) | payer OTHER, SELFPAY ==
[2024-06-29] MEDS: SODIUM FER. GLUC./SUC. 125 MG in Normal Saline 100 ML 110 MG IVPB (13:01)
[2024-06-29] MEDS: Normal Saline Flush 10 ML SYR IVP (13:02)
[2024-07-05] MEDS: SODIUM FER. GLUC./SUC. 125 MG in Normal Saline 100 ML 110 MG IVPB (10:29)
[2024-07-05] MEDS: Normal Saline Flush 10 ML SYR IVP (10:29)
[2024-07-05 10:46] LABS: INR 2.5 (0.9-1.1); Prothrombin Time 23.7 sec (9.1-11.1)
[2024-07-13] MEDS: Normal Saline Flush 10 ML SYR IVP (12:48)
[2024-07-13] MEDS: SODIUM FER. GLUC./SUC. 125 MG in Normal Saline 100 ML 110 MG IVPB (12:48)
== END 2024-07-23 23:59 | disposition home or self-care (01) ==
LOC: INF 02:03
PROVIDERS: Internal Medicine; PCP Family Medicine; Visit Provider Family Medicine
DX: D50.9 Iron deficiency anemia, unspecified (principal); I48.21 Permanent atrial fibrillation; Z95.2 Presence of prosthetic heart valve
CPT/HCPCS: 96365; 85610; J2916

== ENCOUNTER 2024-07-13 02:29 | Outpatient (CLI) | payer OTHER, SELFPAY ==
[2024-07-13 12:36] LABS: INR 2.3 (0.9-1.1); Prothrombin Time 21.7 sec (9.1-11.1)
== END 2024-07-13 02:30 | disposition home or self-care (01) ==
PROVIDERS: PCP Family Medicine; Visit Provider Internal Medicine
DX: D50.9 Iron deficiency anemia, unspecified (principal); Z79.01 Long term (current) use of anticoagulants; F41.9 Anxiety disorder, unspecified
CPT/HCPCS: 36415; 85610

== ENCOUNTER 2024-07-20 03:17 | Outpatient (CLI) | payer OTHER, SELFPAY ==
[2024-07-20 12:22] LABS: HCT 47.6 % (36.0-46.0); HGB 14.9 g/dL (11.2-15.7); MCH 28.8 pg (27.0-33.0); MCHC 31.3 % (32.0-36.0); MCV 92 fL (80-95); MPV 9.6 fL (8.0-11.0); Platelet Count 282 10^3/uL (130-400); RBC 5.18 10^6/uL (3.93-5.22); RDW 15.6 % (11.7-14.6); RDW-SD 53.1 fL; WBC 8.41 10^3/uL (4.4-10.8)
[2024-07-20 12:42] LABS: Iron 88 ug/dL (50-170)
[2024-07-20 12:51] LABS: Ferritin 259 ng/mL (8-252)
== END 2024-07-20 03:18 | disposition home or self-care (01) ==
LOC: LOS 03:17
PROVIDERS: PCP Family Medicine; Visit Provider Family Medicine
DX: Z79.01 Long term (current) use of anticoagulants (principal); D50.9 Iron deficiency anemia, unspecified
CPT/HCPCS: 36415; 85027; 82728; 83540

== ENCOUNTER 2024-07-30 13:49 | Outpatient (CLI) | payer OTHER, SELFPAY ==
[2024-07-30 11:34] LABS: INR 3.3 (0.9-1.1); Prothrombin Time 30.7 sec (9.1-11.1)
== END 2024-07-30 13:50 | disposition home or self-care (01) ==
LOC: LBO 13:50
PROVIDERS: PCP Family Medicine; Visit Provider Internal Medicine
DX: Z95.2 Presence of prosthetic heart valve (principal); I48.91 Unspecified atrial fibrillation
CPT/HCPCS: 36415; 85610

== ENCOUNTER 2024-08-13 00:38 | Outpatient (CLI) | payer OTHER, SELFPAY ==
[2024-08-13 11:34] LABS: INR 2.7 (0.9-1.1); Prothrombin Time 25.1 sec (9.1-11.1)
== END 2024-08-13 00:39 | disposition home or self-care (01) ==
PROVIDERS: PCP Family Medicine; Visit Provider Internal Medicine
DX: Z95.2 Presence of prosthetic heart valve (principal); I48.21 Permanent atrial fibrillation
CPT/HCPCS: 36415; 85610

== ENCOUNTER 2024-08-16 20:42 | Outpatient (REF) | payer OTHER, SELFPAY ==
[2024-08-16 21:41] LABS: Bilirubin Negative (Negative); Blood Trace-intact (Negative); Clarity Sl Cloudy (Clear); Glucose >=1000 mg/dL (Negative); Ketones Negative (Negative); Leukocyte Esterase Trace (Negative); Nitrite Positive (Negative); Specific Gravity 1.015 (1.005-1.025); Urobilinogen 0.2 mg/dL (Up to 0.2)
[2024-08-16 21:54] LABS: Bacteria Many HPF (Negative); C & S Indicated? Yes; Casts Negative LPF (Negative); Crystals Mod Calcium Oxalate HPF (Negative); Epithelial Cells Few HPF (Negative); Mucus Trace (Negative); Other Cells Rare Renal (Negative); RBC 0-2 HPF (0-2); WBC >50 HPF (0-5)
== END 2024-08-16 20:43 | disposition home or self-care (01) ==
LOC: LBN 20:42
PROVIDERS: PCP Family Medicine; Visit Provider Family Medicine
DX: R35.0 Frequency of micturition (principal); N76.0 Acute vaginitis; B96.20 Unspecified Escherichia coli [E. coli] as the cause of diseases classified elsewhere
CPT/HCPCS: 87077; 81003; 81015; 87086; 87186; 87480; 87510; 87660

== ENCOUNTER 2024-08-20 00:50 | Outpatient (CLI) | payer OTHER, SELFPAY ==
[2024-08-20 13:49] LABS: INR 2.7 (0.9-1.1)
== END 2024-08-20 00:51 | disposition home or self-care (01) ==
PROVIDERS: PCP Family Medicine; Visit Provider Internal Medicine
DX: Z95.2 Presence of prosthetic heart valve (principal); I48.21 Permanent atrial fibrillation
CPT/HCPCS: 36415; 85610

== ENCOUNTER 2024-08-26 03:06 | Outpatient (CLI) | payer OTHER, SELFPAY ==
[2024-08-26 11:43] LABS: Prothrombin Time 21.4 sec (9.1-11.1)
[2024-08-26 11:58] LABS: INR 2.2 (0.9-1.1)
== END 2024-08-26 03:07 | disposition home or self-care (01) ==
PROVIDERS: PCP Family Medicine; Visit Provider Internal Medicine
DX: Z95.2 Presence of prosthetic heart valve (principal); I48.21 Permanent atrial fibrillation
CPT/HCPCS: 36415; 85610

== ENCOUNTER 2024-09-03 00:26 | Outpatient (CLI) | payer OTHER, SELFPAY ==
[2024-09-03 10:01] LABS: Prothrombin Time 19.5 sec (9.1-11.1)
== END 2024-09-03 00:27 | disposition home or self-care (01) ==
PROVIDERS: PCP Family Medicine; Visit Provider Internal Medicine
DX: Z95.2 Presence of prosthetic heart valve (principal); I48.21 Permanent atrial fibrillation
CPT/HCPCS: 36415; 85610

== ENCOUNTER 2024-09-10 00:23 | Outpatient (CLI) | payer OTHER, SELFPAY ==
[2024-09-10 11:02] LABS: INR 2.6 (0.9-1.1); Prothrombin Time 24.8 sec (9.1-11.1)
== END 2024-09-10 00:24 | disposition home or self-care (01) ==
PROVIDERS: PCP Family Medicine; Visit Provider Internal Medicine
DX: Z95.2 Presence of prosthetic heart valve (principal); I48.21 Permanent atrial fibrillation
CPT/HCPCS: 36415; 85610

== ENCOUNTER 2024-09-20 12:46 | Outpatient (REF) | payer OTHER, SELFPAY ==
[2024-09-20 14:02] LABS: Bilirubin Negative (Negative); Blood Negative (Negative); Clarity Clear (Clear); Glucose 500 mg/dL (Negative); Ketones Negative (Negative); Leukocyte Esterase Negative (Negative); Nitrite Negative (Negative); Urobilinogen 0.2 mg/dL (Up to 0.2); pH 5.5 (5-8)
== END 2024-09-20 12:47 | disposition home or self-care (01) ==
LOC: LBN 12:46
PROVIDERS: PCP Family Medicine; Visit Provider Family Medicine
DX: R30.0 Dysuria (principal); F41.9 Anxiety disorder, unspecified
CPT/HCPCS: 81003

== ENCOUNTER 2024-09-24 00:58 | Outpatient (CLI) | payer OTHER, SELFPAY ==
[2024-09-24 10:44] LABS: Bilirubin Negative (Negative); Blood Negative (Negative); Clarity Clear (Clear); Glucose 100 mg/dL (Negative); Ketones Negative (Negative); Leukocyte Esterase Negative (Negative); Nitrite Negative (Negative); Urobilinogen 0.2 mg/dL (Up to 0.2)
[2024-09-24 10:48] LABS: INR 2.8 (0.9-1.1)
== END 2024-09-24 00:59 | disposition home or self-care (01) ==
PROVIDERS: PCP Family Medicine; Visit Provider Internal Medicine
DX: R31.9 Hematuria, unspecified (principal); Z95.2 Presence of prosthetic heart valve; I48.21 Permanent atrial fibrillation
CPT/HCPCS: 36415; 81003; 85610

== ENCOUNTER 2024-10-08 00:48 | Outpatient (CLI) | payer OTHER, SELFPAY ==
[2024-10-08 10:27] LABS: INR 2.9 (0.9-1.1); Prothrombin Time 27.2 sec (9.1-11.1)
== END 2024-10-08 00:49 | disposition home or self-care (01) ==
PROVIDERS: PCP Family Medicine; Visit Provider Internal Medicine
DX: Z95.2 Presence of prosthetic heart valve (principal); I48.21 Permanent atrial fibrillation
CPT/HCPCS: 36415; 85610

== ENCOUNTER 2024-10-29 01:26 | Outpatient (CLI) | payer OTHER, SELFPAY ==
[2024-10-29 12:42] LABS: INR 2.2 (0.9-1.1); Prothrombin Time 21.2 sec (9.1-11.1)
== END 2024-10-29 01:27 | disposition home or self-care (01) ==
PROVIDERS: PCP Family Medicine; Visit Provider Internal Medicine
DX: Z95.2 Presence of prosthetic heart valve (principal); I48.21 Permanent atrial fibrillation
CPT/HCPCS: 36415; 85610

== ENCOUNTER 2024-11-05 00:55 | Outpatient (CLI) | payer OTHER, SELFPAY ==
[2024-11-05 12:37] LABS: Prothrombin Time 21.4 sec (9.1-11.1)
[2024-11-05 12:38] LABS: INR 2.2 (0.9-1.1)
== END 2024-11-05 00:56 | disposition home or self-care (01) ==
LOC: LOS 00:55
PROVIDERS: PCP Family Medicine; Visit Provider Internal Medicine
DX: Z95.2 Presence of prosthetic heart valve (principal); I48.21 Permanent atrial fibrillation
CPT/HCPCS: 36415; 85610

== ENCOUNTER 2024-11-12 01:31 | Outpatient (CLI) | payer OTHER, SELFPAY ==
[2024-11-12 13:02] LABS: Prothrombin Time 27.9 sec (9.1-11.1)
== END 2024-11-12 01:32 | disposition home or self-care (01) ==
LOC: LOS 01:31
PROVIDERS: PCP Family Medicine; Visit Provider Internal Medicine
DX: Z95.2 Presence of prosthetic heart valve (principal); I48.21 Permanent atrial fibrillation
CPT/HCPCS: 36415; 85610

== ENCOUNTER 2024-11-26 01:05 | Outpatient (CLI) | payer OTHER, SELFPAY ==
[2024-11-26 13:34] LABS: INR 3.6 (0.9-1.1); Prothrombin Time 33.3 sec (9.1-11.1)
== END 2024-11-26 01:06 | disposition home or self-care (01) ==
LOC: LOS 01:05
PROVIDERS: PCP Family Medicine; Visit Provider Internal Medicine
DX: Z95.2 Presence of prosthetic heart valve (principal); I48.21 Permanent atrial fibrillation
CPT/HCPCS: 36415; 85610

== ENCOUNTER 2024-12-10 01:12 | Outpatient (CLI) | payer OTHER, SELFPAY ==
[2024-12-10 13:20] LABS: INR 3.5 (0.9-1.1); Prothrombin Time 32.5 sec (9.1-11.1)
== END 2024-12-10 01:13 | disposition home or self-care (01) ==
LOC: LOS 01:12
PROVIDERS: PCP Family Medicine; Visit Provider Internal Medicine
DX: Z95.2 Presence of prosthetic heart valve (principal); I48.21 Permanent atrial fibrillation
CPT/HCPCS: 36415; 85610

== ENCOUNTER 2024-12-31 01:04 | Outpatient (CLI) | payer OTHER, SELFPAY ==
[2024-12-31 12:33] LABS: INR 3.7 (0.9-1.1); Prothrombin Time 34.3 sec (9.1-11.1)
== END 2024-12-31 01:05 | disposition home or self-care (01) ==
LOC: LOS 01:04
PROVIDERS: PCP Family Medicine; Visit Provider Internal Medicine
DX: I48.21 Permanent atrial fibrillation (principal)
CPT/HCPCS: 36415; 85610

== ENCOUNTER 2025-01-14 00:56 | Outpatient (CLI) | payer OTHER, SELFPAY ==
[2025-01-14 12:41] LABS: INR 3.0 (0.9-1.1); Prothrombin Time 28.0 sec (9.1-11.1)
== END 2025-01-14 00:57 | disposition home or self-care (01) ==
LOC: LOS 00:57
PROVIDERS: PCP Family Medicine; Visit Provider Internal Medicine
DX: Z95.2 Presence of prosthetic heart valve (principal); I48.21 Permanent atrial fibrillation
CPT/HCPCS: 36415; 85610

== ENCOUNTER 2025-02-18 01:01 | Outpatient (CLI) | payer OTHER, SELFPAY ==
[2025-02-18 13:12] LABS: Prothrombin Time 38.8 sec (9.1-11.1)
[2025-02-18 13:30] LABS: INR 4.3 (0.9-1.1)
== END 2025-02-18 01:02 | disposition home or self-care (01) ==
PROVIDERS: PCP Family Medicine; Visit Provider Internal Medicine Cardiovascular Disease
DX: I48.21 Permanent atrial fibrillation (principal); Z95.2 Presence of prosthetic heart valve
CPT/HCPCS: 36415; 85610

== ENCOUNTER 2025-03-01 08:31 | Outpatient (CLI) | payer OTHER, SELFPAY ==
[2025-03-01 14:23] LABS: Prothrombin Time 43.4 sec (9.1-11.1)
[2025-03-01 14:38] LABS: INR 4.8 (0.9-1.1)
== END 2025-03-01 08:32 | disposition home or self-care (01) ==
PROVIDERS: PCP Family Medicine; Visit Provider Internal Medicine Cardiovascular Disease
DX: I48.21 Permanent atrial fibrillation (principal); Z95.2 Presence of prosthetic heart valve
CPT/HCPCS: 36415; 85610

== ENCOUNTER 2025-03-08 03:46 | Outpatient (CLI) | payer OTHER, SELFPAY ==
[2025-03-08 14:37] LABS: Prothrombin Time 27.5 sec (9.1-11.1)
[2025-03-08 14:42] LABS: INR 2.9 (0.9-1.1)
== END 2025-03-08 03:47 | disposition home or self-care (01) ==
PROVIDERS: Internal Medicine; PCP Family Medicine; Referring Provider Internal Medicine Cardiovascular Disease; Visit Provider Internal Medicine Cardiovascular Disease
DX: I48.91 Unspecified atrial fibrillation (principal); Z95.2 Presence of prosthetic heart valve
CPT/HCPCS: 36415; 85610

== ENCOUNTER 2025-04-01 00:41 | Outpatient (CLI) | payer MEDICARE, SELFPAY ==
[2025-04-01 15:04] LABS: INR 3.1 (0.9-1.1); Prothrombin Time 29.0 sec (9.1-11.1)
== END 2025-04-01 00:42 | disposition home or self-care (01) ==
LOC: LOS 00:41
PROVIDERS: PCP Family Medicine; Visit Provider Internal Medicine Cardiovascular Disease
DX: I48.21 Permanent atrial fibrillation (principal)
CPT/HCPCS: 36415; 85610

== ENCOUNTER 2025-04-15 00:07 | Outpatient (CLI) | payer MEDICARE, SELFPAY ==
[2025-04-15 14:31] LABS: INR 3.9 (0.9-1.1); Prothrombin Time 35.4 sec (9.1-11.1)
== END 2025-04-15 00:08 | disposition home or self-care (01) ==
LOC: LOS 00:07
PROVIDERS: PCP Family Medicine; Visit Provider Internal Medicine Cardiovascular Disease
DX: I48.21 Permanent atrial fibrillation (principal); Z95.2 Presence of prosthetic heart valve
CPT/HCPCS: 36415; 85610

== ENCOUNTER 2025-04-29 00:57 | Outpatient (CLI) | payer MEDICARE, SELFPAY ==
[2025-04-29 14:17] LABS: INR 2.6 (0.9-1.1); Prothrombin Time 24.1 sec (9.1-11.1)
== END 2025-04-29 00:58 | disposition home or self-care (01) ==
LOC: LOS 00:57
PROVIDERS: PCP Family Medicine; Visit Provider Internal Medicine Cardiovascular Disease
DX: I48.21 Permanent atrial fibrillation (principal); Z95.2 Presence of prosthetic heart valve
CPT/HCPCS: 36415; 85610

== ENCOUNTER 2025-05-13 00:16 | Outpatient (CLI) | payer MEDICARE, SELFPAY ==
[2025-05-13 12:15] LABS: INR 2.5 (0.9-1.1); Prothrombin Time 23.6 sec (9.1-11.1)
[2025-05-13 12:25] LABS: Iron 79 ug/dL (50-170)
[2025-05-13 14:27] LABS: Ferritin 43 ng/mL (7-271); TSH (W/Ref FT4) 16.21 uIU/mL (0.55-4.78)
[2025-05-13 14:30] LABS: ALT 26 U/L (10-49); AST 34 U/L (<34); Albumin 4.5 g/dL (3.4-5.0); Alkaline Phosphatase 74 U/L (46-116); Anion Gap 7.6 mmol/L (3-11); BUN 19 mg/dL (9-23); Bilirubin, Total 0.50 mg/dL (0.2-1.2); CO2 27.4 mmol/L (20.0-31.0); Calcium 9.8 mg/dL (8.3-10.6); Chloride 105 mmol/L (98-107); Cholesterol 188 mg/dL (<200); Glucose 97 mg/dL (74-106); HDL Cholesterol 78 mg/dL (>40); Potassium 3.6 mmol/L (3.5-5.1); Sodium 140 mmol/L (136-145); Total Protein 7.6 g/dL (5.7-8.2)
== END 2025-05-13 00:17 | disposition home or self-care (01) ==
LOC: LOS 00:17
PROVIDERS: PCP Family Medicine; Visit Provider Internal Medicine Cardiovascular Disease
DX: E03.9 Hypothyroidism, unspecified (principal); I10 Essential (primary) hypertension; D50.9 Iron deficiency anemia, unspecified; Z79.01 Long term (current) use of anticoagulants; I48.21 Permanent atrial fibrillation
CPT/HCPCS: 36415; 80053; 80061; 82728; 83540; 84439; 84443; 85610

== ENCOUNTER 2025-05-27 02:26 | Outpatient (CLI) | payer MEDICARE, SELFPAY ==
[2025-05-27 15:14] LABS: INR 2.3 (0.9-1.1); Prothrombin Time 22.2 sec (9.1-11.1)
== END 2025-05-27 02:27 | disposition home or self-care (01) ==
LOC: LOS 02:26
PROVIDERS: PCP Family Medicine; Visit Provider Internal Medicine Cardiovascular Disease
DX: I48.21 Permanent atrial fibrillation (principal); Z95.2 Presence of prosthetic heart valve
CPT/HCPCS: 36415; 85610

== ENCOUNTER 2025-06-10 00:47 | Outpatient (CLI) | payer MEDICARE, SELFPAY ==
[2025-06-10 11:21] LABS: INR 3.2 (0.9-1.1); Prothrombin Time 29.8 sec (9.1-11.1)
== END 2025-06-10 00:48 | disposition home or self-care (01) ==
LOC: LOS 00:48
PROVIDERS: PCP Family Medicine; Visit Provider Internal Medicine Cardiovascular Disease
DX: I48.21 Permanent atrial fibrillation (principal); Z95.2 Presence of prosthetic heart valve
CPT/HCPCS: 36415; 85610